=== PATIENT | male | born 1945 | race Caucasian/White ===

== ENCOUNTER 2021-07-15 18:00 | Outpatient (CLI) | payer MEDICARE, OTHER, SELFPAY ==
[2021-07-15] MEDS: 0.9% Saline Lock 10 ML Syringe IV (18:28)
[2021-07-15 18:30] VITALS: BP 155/56; PULSE 83; RESP 16; TEMP 38.4; O2SAT 96; BMI 37.3
[2021-07-15] MEDS: Acetaminophen 325 MG Tablet 650 MG PO (18:41)
[2021-07-15 21:07] VITALS: BP 138/65; PULSE 74; RESP 16; TEMP 38.1; O2SAT 96
== END 2021-07-15 20:05 | disposition home or self-care (01) ==
LOC: MS3OUT 18:06 → MS3 18:07
PROVIDERS: PCP Internal Medicine; Referring Provider Nurse Practitioner Adult Health; Visit Provider Nurse Practitioner Adult Health
DX: Z23 Encounter for immunization (principal); U07.1 COVID-19
CPT/HCPCS: J7050; M0243; A4216; Q0244

== ENCOUNTER 2021-07-15 21:37 | Inpatient (IN) | payer MEDICARE, OTHER, SELFPAY ==
[2021-07-15 21:38] VITALS: BP 175/59; PULSE 135; RESP 24; TEMP 37.3; O2SAT 97; BMI 38.4
[2021-07-15 22:12] VITALS: BP 155/58; PULSE 101; PULSE 97; RESP 20; RESP 27; TEMP 39; O2SAT 93
--- NOTE | 2021-07-15 22:25 | RAD_ITS ---
STUDY: X-RAY CHEST REASON FOR EXAM: Male, 75 years old. COVID-19, increased shortness of breath TECHNIQUE: Portable, upright, AP chest radiograph 06/30/2014 COMPARISON: None. FINDINGS: Right right mid and lower lung and left lower lung patchy opacities. There is no demonstrated pleural abnormality. Normal size heart. Normal mediastinum and yung. Normal visualized pulmonary arteries. Normal visualized aortic arch and descending thoracic aorta. There are diffuse degenerative changes of the visualized thoracic spine. There is degenerative osteoarthritis of the bilateral shoulders. There is no demonstrated abnormality of the visualized soft tissue structures of the upper abdomen. RAD/Chest 1 View (Portable) IMPRESSION: Multifocal pneumonia. Electronically Signed: Manoj Dick MD at 23:11 EDT Tel , Service support ,
--- NOTE | 2021-07-15 22:26 | EKG12_ITS ---
Test Reason : SOB Blood Pressure : / mmHG Vent. Rate : 098 BPM Atrial Rate : 098 BPM P-R Int : 156 ms QRS Dur : 084 ms QT Int : 350 ms P-R-T Axes : 031 019 025 degrees QTc Int : 446 ms Sinus rhythm with occasional Premature ventricular complexes and Premature atrial complexes Otherwise normal ECG Confirmed by RODERICK GROSS, JACKIE ([id number]), research editor ALFONZO BUCKNER ([id number]) on 07/19/2021 8:05:02 AM Referred By: HERI Confirmed By:JACKIE VAUGHN MD
--- NOTE | 2021-07-15 22:27 | ED.VIS.DYS ---
HPI History of Present Illness Chief Complaint: Shortness of Breath Informant: patient and family Narrative Narrative: 75-year-old male states that 1 week ago he developed symptoms of COVID-19. He did test positive and today received monoclonal antibody infusion at approximately 1800 hrs. He has had worsening shortness of breath during the day has been wheezing. He has no known lung conditions. After his infusion he was noticeably more short of breath. He does have a history of atrial fibrillation and is on Xarelto. He states he has not missed any doses of Xarelto. He notes continued high fevers but otherwise has not had too many symptoms of Covid. He does note a slight cough. [facility] Medical History A-fib History of renal cell carcinoma HLD (hyperlipidemia) Home Medications Valsartan [Diovan] 320 mg PO DAILY 06/30/14 [History Last Taken 06/30/14] cyanocobalamin (vitamin B-12) 1,000 mcg PO DAILY@0800 06/30/14 [History Last Taken 06/30/14] diltiazem HCl 360 mg PO DAILY 06/30/14 [History Last Taken 06/30/14] doxazosin 8 mg PO QHS 06/30/14 [History Last Taken 06/29/14 22:00] glimepiride 4 mg PO DAILY 06/30/14 [History Last Taken 06/30/14] metformin 500 mg PO BIDCM 06/30/14 [History Last Taken 06/30/14] simvastatin 20 mg PO QHS 06/30/14 [History Last Taken Unknown] vitamin E (dl, acetate) 400 units PO DAILY 06/30/14 [History Last Taken 06/30/14] chlorthalidone 25 mg PO DAILY 07/15/21 [History Last Taken Unknown] pioglitazone 15 mg PO DAILY 07/15/21 [History Last Taken Unknown] rivaroxaban [Xarelto] 15 mg PO DAILY 07/15/21 [History Last Taken Unknown] Allergy/AdvReac Type Severity Reaction Status Date / Time No Known Allergies Allergy Verified 07/15/21 21:41 Surgical History History of nephrectomy Social History (Updated 09/30/21 @ 22:[address] Saravanan Lucero, DO) Smoking Status: Former smoker substance use type: does not use ROS ROS ED Constitutional Constitutional ED: Reports chills and fever(s); Denies weight loss Eyes Eyes: Denies change in vision or diplopia ENT ENT ED: Denies ear pain, rhinorrhea or sore throat Cardiovascular Cardiovascular: Denies chest pain, orthopnea, palpitations or racing heartbeat Respiratory/Chest Respiratory/Chest: Reports cough, dyspnea and dyspnea on exertion; Denies orthopnea Gastrointestinal Gastrointestinal: Denies abdominal pain, diarrhea, nausea or vomiting Genitourinary Genitourinary ED: Denies dysuria, hematuria or urinary frequency Musculoskeletal Musculoskeletal: Denies arthralgias or myalgias Integumentary Denies abscess or rash Neurologic Neurologic: Denies headache(s) or weakness Psychiatric Psychiatric: Denies anxiety, depression, suicidal ideation or suicidal thoughts Endocrine Endocrinology: Denies polydipsia, polyphagia or polyuria Allergic/Immunologic Allergic/Immunologic ED: Denies mouth swelling, tongue swelling or urticaria EXAM Physical Exam Const Vital Signs: 07/15/21 21:38 07/15/21 22:12 07/15/21 22:28 Temperature 99.2 F H 102.2 F H Temperature Source Temporal Oral Pulse Rate 135 H 97 Respiratory Rate 24 H 20 H Respiratory Effort Short of Breath Respiratory Depth Shallow Respiratory Pattern Tachypnea Blood Pressure 175/59 H 155/58 H Blood Pressure Mean 97 90 Pulse Ox 97 93 Oxygen Delivery Method Room Air Room Air Room Air 07/15/21 23:30 Temperature 102.2 F H Temperature Source Oral Pulse Rate 95 Respiratory Rate 27 H Respiratory Effort Respiratory Depth Respiratory Pattern Blood Pressure 164/70 H Blood Pressure Mean 101 Pulse Ox 95 Oxygen Delivery Method Room Air Positive well nourished and well developed General Appearance ED: well developed HEENT Reports normocephalic, head/scalp atraumatic and moist mucous membranes Eyes PERRL and EOMs intact bilaterally Neck no lymphadenopathy, supple and no JVD Resp normal respiratory effort Auscultation: wheezes expiratory wheezes Cardio regular rate, regular rhythm and no murmurs GI normal to inspection, nondistended, normoactive bowel sounds and non-tender Palpation: soft Back/Spine no CVA tenderness and normal ROM Extremity normal to inspection General Extremety ED: Negative for edema General Extremity: Negative for edema Neuro oriented x3 and CN's II-XII intact bilaterally Sensorium / Orientation: alert Motor Exam: strength 5/5 throughout Psych mental status grossly normal Mood & Affect: Negative for depressed or tearful Skin no rashes or lesions noted and no wounds MDM MDM MDM Narrative Medical decision making narrative: Patient is intermittently in and out of A. fib with RVR. White count 8.0 with a hemoglobin of 10.5. BUN and creatinine are elevated off baseline with a BUN of 37 creatinine of 2.09. Troponin 24. My interpretation of the chest x-ray is multifocal areas of pneumonitis consistent with COVID-19 diagnosis. Patient received albuterol MDI Decadron and 500 cc of normal saline. He has been very compliant with his Xarelto I do not think we need to pursue a pulmonary embolism as he has not missed any doses. Patient ambulated at 87% on room air. Due to the possibility of myocardial irritability I placed him on a couple liters. Lab Data Attestation: I reviewed the patient's lab results. Labs: Laboratory Results - last 24 hr 07/15/21 07/15/21 22:19 22:19 WBC 8.0 RBC 3.62 L Hgb 10.5 L Hct 31.4 L MCV 86.7 MCH 29.0 MCHC 33.4 RDW Std Deviation 49.1 H RDW Coeff of Rodrigo 15.2 H Plt Count 196 MPV 10.9 Immature Gran % (Auto) 0.700 Neut % (Auto) 74.8 H Lymph % (Auto) 18.3 L Blaine % (Auto) 6.1 Eos % (Auto) 0.0 Baso % (Auto) 0.1 Absolute Neuts (auto) 6.0 Absolute Lymphs (auto) 1.47 Nucleated RBC % 0 Sodium 133 L Potassium 3.8 Chloride 99 Carbon Dioxide 27.0 Anion Gap 7 BUN 37 H Creatinine 2.09 H Estim Creat Clear Calc 30.07 Est GFR (MDRD) Af Amer 40 L Est GFR (MDRD) Non-Af 33 L BUN/Creatinine Ratio 17.7 Glucose 236 H Calcium 7.6 L Total Bilirubin 0.40 AST 26 ALT 21 Alkaline Phosphatase 53 Troponin I High Sens 24 Total Protein 7.0 Albumin 2.7 L Globulin 4.3 H Albumin/Globulin Ratio 0.6 L Radiography Diagnostic Testing: Radiology Impression Chest X-Ray 09/30/21 22:25 IMPRESSION: Multifocal pneumonia. Electronically Signed: Manoj Dick MD at 23:11 EDT Tel , Service support , EKG Initial EKG: Attestation: I personally reviewed and interpreted this EKG as follows: Comments: Sinus rhythm with a ventricular rate of 98 bpm. Noted PVCs and PACs Discharge Plan Dx/Rx/DC Orders Clinical Impression: COVID-19, Atrial fibrillation with RVR Disposition Disposition: Acute Care Hospital [facility]
[2021-07-15 22:28] VITALS: O2SAT 93
[2021-07-15 22:38] LABS: Absolute Lymphocyte Count 1.47 X10^3/uL (0.83-4.51); Basophil# 0.01 X10^3/uL; Basophil% 0.1 % (0-1); Hematocrit 31.4 % (40-54); Hemoglobin 10.5 g/dL (13.0-16.5); Lymphocyte # 1.47 X10^3/ul (0.83-4.51); Lymphocyte % 18.3 % (19-41); Mean Corp Hgb Conc 33.4 g/dL (32-36); Mean Corpuscular Volume 86.7 fL (80-94); Mean Platelet Vol. 10.9 fl (6.2-12.0); Monocyte# 0.49 X10^3/uL; Monocyte% 6.1 % (0-10); NRBC Flagged by Analyzer 0 % (0-5); Neutrophil # 5.99 X10^3/uL (2.7-7.7); Neutrophil % 74.8 % (47-70); Platelet Count 196 K/mm3 (150-450); RBC Distribution Width CV 15.2 % (11.6-14.6); RBC Distribution Width SD 49.1 fl (35.1-43.9); Red Blood Count 3.62 M/mm3 (4.6-6.2)
[2021-07-15 22:57] LABS: ALB/GLOB Ratio 0.6 RATIO (0.9-2.4); AST(SGOT) 26 U/L (15-37); Alanine Aminotransfer ALT/SGPT 21 U/L (16-61); Albumin, Serum 2.7 g/dL (3.2-5.0); Alkaline Phosphatase 53 U/L (45-117); Anion Gap 7 (5-15); BUN 37 mg/dL (7-18); BUN/Creat Ratio 17.7 RATIO (10-20); Calcium,Total 7.6 mg/dL (8.5-10.1); Chloride 99 mmol/L (98-107); Creatinine, Serum 2.09 mg/dL (0.70-1.30); EST Glomerular Filtration Rate 33 mL/min (>60); Est Glom Filt Rate - Afr Amer 40 mL/min (>60); Estimated Creatinine Clearance 30.07 ml/min; Globulin 4.3 g/dL (2.2-4.2); Glucose 236 mg/dL (74-106); Potassium 3.8 mmol/L (3.5-5.1); Sodium Level 133 mmol/L (136-145); Troponin-I HS 24 pg/mL (3.0-78.0)
[2021-07-15] MEDS: INHALER, ASSIST DEVICES 1 EACH SPACER INHALATION (23:12)
[2021-07-15] MEDS: dexAMETHasone 4 MG Tablet 6 MG PO (23:12)
[2021-07-15] MEDS: Albuterol Sulfate 8 gm Inhaler (60 puffs) 4 PUFF INHALATION (23:12)
[2021-07-15 23:30] VITALS: BP 164/70; PULSE 95; RESP 27; TEMP 39; O2SAT 95
[2021-07-15 23:35] VITALS: O2SAT 93
[2021-07-15 23:40] LABS: Lactic Acid 1.1 mmol/L (0.4-1.9)
[2021-07-16] VITALS (14 sets, daily range): BP systolic 113–180; BP diastolic 41–73; PULSE 60–111; RESP 16–24; TEMP 36.1–38.9; O2SAT 92–97; BMI 39.4
[2021-07-16] MEDS: Ibuprofen 600 MG Tablet PO (00:15)
[2021-07-16] MEDS: dilTIAZem 25 MG/5 ML Vial 10 MG IV BOLUS (01:43)
--- NOTE | 2021-07-16 01:47 | HP.PCM_ITS ---
Documented by User: JESUS ALBERTO Garrett 07/16/21 02:05 HPI - General General Date of Admission: 07/16/21 Date of Service: 07/16/21 Chief Complaint: Shortness of breath HPI Narrative MAKAYLA RODRIGUEZ, is a 75 M who presents with complaints of increased shortness of breath. Patient states that he became symptomatic approximately 8 days ago and tested positive for COVID-19 at that time. Patient received monoclonal antibodies as an outpatient earlier today. Patient states that he has had worsening shortness of breath starting this morning that has progressively worsened and had some associated wheezing. Patient states that he does have a history of atrial fibrillation and takes Xarelto. Patient states he also has had fevers up to 103. [facility] Medical History (Updated 07/16/21 @ 02:29 by Kiara Brunson) A-fib Diabetes Former smoker History of renal cell carcinoma HLD (hyperlipidemia) Kidney disease Sleep apnea Home Medications Valsartan [Diovan] 320 mg PO DAILY 06/30/14 [History Last Taken 06/30/14] cyanocobalamin (vitamin B-12) 1,000 mcg PO DAILY@0800 06/30/14 [History Last Taken 06/30/14] diltiazem HCl 360 mg PO DAILY 06/30/14 [History Last Taken 06/30/14] doxazosin 8 mg PO QHS 06/30/14 [History Last Taken 06/29/14 22:00] glimepiride 4 mg PO DAILY 06/30/14 [History Last Taken 06/30/14] metformin 500 mg PO BIDCM 06/30/14 [History Last Taken 06/30/14] simvastatin 20 mg PO QHS 06/30/14 [History Last Taken Unknown] vitamin E (dl, acetate) 400 units PO DAILY 06/30/14 [History Last Taken 06/30/14] chlorthalidone 25 mg PO DAILY 07/15/21 [History Last Taken Unknown] pioglitazone 15 mg PO DAILY 07/15/21 [History Last Taken Unknown] rivaroxaban [Xarelto] 15 mg PO DAILY 07/15/21 [History Last Taken Unknown] Allergy/AdvReac Type Severity Reaction Status Date / Time No Known Allergies Allergy Verified 07/15/21 21:41 Surgical History History of nephrectomy Social History Smoking Status: Former smoker substance use type: does not use ROS Constitutional Constitutional: Reports chills, fever(s) and malaise; Denies anorexia, fatigue or weakness Cardiovascular Cardiovascular: Denies chest pain, edema or palpitations Respiratory/Chest Respiratory/Chest: Reports cough, shortness of breath at rest, shortness of breath with exertion and wheezing Gastrointestinal Gastrointestinal: Denies abdominal pain, constipation, diarrhea, nausea or vomiting Genitourinary Genitourinary: Denies dysuria Musculoskeletal Musculoskeletal: Denies back pain, extremity pain, joint pain or joint stiffness Integumentary Integumentary: Denies dry skin Neurologic Neurologic: Denies abnormal gait, abnormal speech, confusion or dizziness Psychiatric Psychiatric: Denies anxiety or depression Endocrine Endocrinology: Denies change in body appearance Hematologic/Lymphatic Hematologic/Lymphatic: Denies anemia, easy bleeding or easy bruising Vital Signs Vital Signs Vital Signs: 07/15/21 21:38 07/15/21 22:12 07/15/21 22:28 Temperature 99.2 F H 102.2 F H Temperature Source Temporal Oral Pulse Rate 135 H 97 Respiratory Rate 24 H 20 H Respiratory Effort Short of Breath Respiratory Depth Shallow Respiratory Pattern Tachypnea Blood Pressure 175/59 H 155/58 H Blood Pressure Mean 97 90 Pulse Ox 97 93 Oxygen Delivery Method Room Air Room Air Room Air Oxygen Flow Rate (L/min) 07/15/21 23:30 07/16/21 00:15 07/16/21 00:16 Temperature 102.2 F H 102.1 F H 102.1 F H Temperature Source Oral Oral Oral Pulse Rate 95 95 95 Respiratory Rate 27 H 24 H 24 H Respiratory Effort Respiratory Depth Respiratory Pattern Blood Pressure 164/70 H 180/72 H 180/72 H Blood Pressure Mean 101 108 108 Pulse Ox 95 97 97 Oxygen Delivery Method Room Air Nasal Cannula Nasal Cannula Oxygen Flow Rate (L/min) 2 2 07/16/21 00:22 07/16/21 01:43 Temperature 99.9 F H Temperature Source Oral Pulse Rate 111 H Respiratory Rate 18 Respiratory Effort Respiratory Depth Respiratory Pattern Blood Pressure 135/41 H 126/62 H Blood Pressure Mean 72 83 Pulse Ox 95 Oxygen Delivery Method Nasal Cannula Oxygen Flow Rate (L/min) 2 Weight Weight: 260 lb Body Mass Index (BMI) 38.4 Physical Exam Const alert, oriented x3 and no apparent distress General Appearance: cooperative HEENT normocephalic and head/scalp atraumatic Eyes conjunctivae normal and no scleral icterus Resp normal respiratory effort and normal air movement Effort and Inspection: tachypneic Auscultation: wheezes expiratory wheezes, anterior, posterior and throughout Cardio regular rhythm, S1 normal heart sound, S2 normal heart sound and peripheral puls es 2+ throughout Rate: tachycardic GI normal to inspection, nondistended, normoactive bowel sounds, soft to palpation and non-tender Extremity normal capillary refill and no clubbing, cyanosis or edema General Extremity: no tenderness to palpation of joints or extremities Skin General Skin Exam: no breakdown and turgor normal Lesions: no lesions Rashes: no rashes Neuro no focal motor deficits and no sensory deficits noted Speech: speech normal Motor Exam: Negative for general weakness Psych thought process normal, cooperative and affect normal Appearance: appropriate Results Lab / Micro Data Result Diagrams: 07/15/21 22:19 07/15/21 22:19 Labs: Laboratory Results - last 24 hr 07/15/21 22:19: WBC 8.0, RBC 3.62 L, Hgb 10.5 L, Hct 31.4 L, MCV 86.7, MCH 29.0, MCHC 33.4, RDW Std Deviation 49.1 H, RDW Coeff of Rodrigo 15.2 H, Plt Count 196, MPV 10.9, Immature Gran % (Auto) 0.700, Neut % (Auto) 74.8 H, Lymph % (Auto) 18.3 L, [place]wsley % (Auto) 6.1, Eos % (Auto) 0.0, Baso % (Auto) 0.1, Absolute Neuts (auto) 6.0, Absolute Lymphs (auto) 1.47, Nucleated RBC % 0 07/15/21 22:19: Sodium 133 L, Potassium 3.8, Chloride 99, Carbon Dioxide 27.0, Anion Gap 7, BUN 37 H, Creatinine 2.09 H, Estim Creat Clear Calc 30.07, Est GFR (MDRD) Af Amer 40 L, Est GFR (MDRD) Non-Af 33 L, BUN/Creatinine Ratio 17.7, Glucose 236 H, Calcium 7.6 L, Total Bilirubin 0.40, AST 26, ALT 21, Alkaline Phosphatase 53, Troponin I High Sens 24, Total Protein 7.0, Albumin 2.7 L, Globulin 4.3 H, Albumin/Globulin Ratio 0.6 L 07/15/21 23:10: Lactic Acid 1.1 Radiology Impression Chest X-Ray 07/15/21 22:25 IMPRESSION: Multifocal pneumonia. Electronically Signed: Manoj Dick MD at 23:11 EDT Tel , Service support , Assessment & Plan Assessment/Plan (1) COVID-19: (2) MYAH (acute kidney injury): PLAN: 1. COVID-19 pneumonia -Admit to PCU for cardiac monitoring -Consult pulmonary medicine -consult infectious disease -Decadron received in ER, will continue -Initiate patient on remdesivir -Daily weights -CRP, procalcitonin, D-dimer ordered -Vital signs per protocol -CBC, BMP, liver profile, mag, Phos ordered daily -PT and OT to eval and treat 2. 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 Atrial fibrillation -Chronic for patient however patient noted to be flipping back and forth between atrial fibrillation and sinus tach. -Cardiac monitoring ordered -If patient were to remain in atrial fibrillation with RVR would recommend initiating IV Cardizem -Continue Cardizem and Xarelto p.o. 4. Diabetes Mellitus Type II -Continue glimeperide and pioglitazone -Hold Metformin -ACHS BS with sliding scale insulin ordered 5. Hypertension -Due to MYAH hold chlorthalidone and valsartan -As needed labetalol ordered DVT prophylaxis-SCDs, no pharmacological prophylaxis indicated This patient was seen by Jessica Gibbs NP-C under the supervision of Dr. Randle. Documented by User: Dr. Mitchell Randle MD 07/16/21 03:23 HPI - General General Date of Admission: 07/16/21 [facility] Medical History (Updated 07/16/21 @ 02:29 by Kiara Brunson) A-fib Diabetes Former smoker History of renal cell carcinoma HLD (hyperlipidemia) Kidney disease Sleep apnea Home Medications Valsartan [Diovan] 320 mg PO DAILY 06/30/14 [History Last Taken 06/30/14] cyanocobalamin (vitamin B-12) 1,000 mcg PO DAILY@0800 06/30/14 [History Last Taken 06/30/14] diltiazem HCl 360 mg PO DAILY 06/30/14 [History Last Taken 06/30/14] doxazosin 8 mg PO QHS 06/30/14 [History Last Taken 06/29/14 22:00] glimepiride 4 mg PO DAILY 06/30/14 [History Last Taken 06/30/14] metformin 500 mg PO BIDCM 06/30/14 [History Last Taken 06/30/14] simvastatin 20 mg PO QHS 06/30/14 [History Last Taken Unknown] vitamin E (dl, acetate) 400 units PO DAILY 06/30/14 [History Last Taken 06/30/14] chlorthalidone 25 mg PO DAILY 07/15/21 [History Last Taken Unknown] pioglitazone 15 mg PO DAILY 07/15/21 [History Last Taken Unknown] rivaroxaban [Xarelto] 15 mg PO DAILY 07/15/21 [History Last Taken Unknown] Allergy/AdvReac Type Severity Reaction Status Date / Time No Known Allergies Allergy Verified 07/15/21 21:41 Surgical History History of nephrectomy Social History Smoking Status: Former smoker substance use type: does not use Results Lab / Micro Data Result Diagrams: 07/15/21 22:19 07/15/21 22:19 Charges/Coding Addendum Addendum: Patient was seen and examined independently. I agree with assessment and plan by JESUS ALBERTO Garrett In summary, patient is a 75-year-old male with a significant history of hypertension; renal cell carcinoma status post nephrectomy; hyperlipidemia; diabetes mellitus and paroxysmal A. fib who presents emergency department with an eight day history of progressively worsening Covid-like symptoms. Patient has a fever with highest temperature of 102 Fahrenheit; chills; anorexia; bloated belly; fatigue; and weakness. He had body aches that has improved. He denies anosmia and dysgeusia. He tested positive for COVID-19 virus on 07/12/2021. On the day of presentation patient received monoclonal antibodies. At emergency department he was intermittently found to be in A. fib with RVR. Physical exam: General: Well-nourished, well-developed. Head: Normocephalic, atraumatic, no tenderness Eyes: PERRLA, EOMI ENT, no trauma, moist mucous membranes, no rhinorrhea Neck: Nontender, full range of motion, no spinal tenderness, deformities, step- off CVS: Tachycardia irregularly irregular rate and rhythm. Respiratory : Tachypnea. Rhonchi at right base. Abdomen: Soft, nontender, nondistended, normal bowel sounds, no masses : Deferred Back: Nontender, no CVA tenderness, no midline spinal tenderness, deformities, step-offs Extremities: Nontender full range of motion, no trauma Skin: Normal color, no trauma, abrasions Neuro: Alert, oriented, cranial nerves II through XII grossly intact. Psychiatry: Normal mood. Normal affect. Not depressed. Not anxious. Acute hypoxemic respiratory failure secondary to SARS- COV 2 ED doc reported an oxygen saturation of 91-93 percent on room air. And oxygen saturation of 87% with ambulation. Patient required 2L of nasal cannula oxygen. Oxygen supplementation continued. Reportedly had a positive COVID-19 test outpatient on 07/12/2021. Impression of chest x-ray by radiologist: Multifocal pneumonia. Actual chest x- ray image was independently interpreted. I agree with radiologist interpretat ion. On Xarelto that he takes religiously. Low risk of PE while on Xarelto. Received Decadron at the emergency department and will continue. Estimated creatinine clearance is 30.07 borderline for remdesivir. Liver enzymes are normal. Start remdesivir. Trend CMP. Tylenol for fever MYAH On presentation his creatinine was 2.09. Last creatinine on hospital system was in 2013. Review of community records shows that on 05/05/2021 his creatinine was 1.71 and on 04/12/2021 his creatinine was 1.70. High risk of decompensation with large volume of fluids. Received normal saline bolus 500 mL in the emergency department. Gentle IV hydration ordered. Avoid nephrotoxins. Hold home chlorthalidone and Diovan. Trend CMP. Acute hypocalcemia Calcium 7.6. Albumin of 2.7. Corrected calcium is 8.6. Trend CMP. Hyponatremia Mild. Sodium of 133. 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 Normal saline as above. Trend CMP. Atrial fibrillation Admit to PCU on telemetry. Home Cardizem continued. Home Xarelto continued. IV bolus Cardizem given at the emergency department. Hypertension Blood pressure is not within goal Labetalol as needed ordered. Cardizem continued. Hold Diovan and chlorthalidone because of MYAH. Trend blood pressure and adjust blood pressure medications. DVT prophylaxis Xarelto continued. Visit Charges Inpatient E&M: 05382 Init Hosp L3
[2021-07-16] MEDS: 0.9% Normal Saline 1,000 ML 60 ML IV ×2 (02:23→16:04)
--- NOTE | 2021-07-16 02:26 | PCS.PANDOC ---
PANDEMIC DOCUMENTATION INITIATED: Date: 07/16/2021 Time: 6692
[2021-07-16] MEDS: Acetaminophen 325 MG Tablet 650 MG PO (02:36)
[2021-07-16 02:54] LABS: D-Dimer Quantitative (DVT/PE) 0.44 FEU/ug/m (0.27-0.49)
[2021-07-16 02:56] LABS: LDH 180 U/L (87-241)
[2021-07-16 03:15] LABS: Procalcitonin 0.29 ng/mL (0.00-0.09)
--- NOTE | 2021-07-16 07:02 | NURSING ---
spoke with daughter gena, gave brief update. Thankful for care
[2021-07-16 07:35] LABS: Absolute Lymphocyte Count 0.81 X10^3/uL (0.83-4.51); Absolute Neutrophil Count 7.8 X10^3/uL (2.0-7.7); Basophil# 0.01 X10^3/uL; Basophil% 0.1 % (0-1); Hematocrit 28.4 % (40-54); Hemoglobin 9.4 g/dL (13.0-16.5); Lymphocyte # 0.81 X10^3/ul (0.83-4.51); Mean Corp Hgb Conc 33.1 g/dL (32-36); Mean Corpuscular Hgb 28.7 pg (27.0-32.0); Mean Corpuscular Volume 86.9 fL (80-94); Mean Platelet Vol. 10.3 fl (6.2-12.0); Monocyte# 0.36 X10^3/uL; NRBC Flagged by Analyzer 0 % (0-5); Neutrophil # 7.78 X10^3/uL (2.7-7.7); Neutrophil % 85.9 % (47-70); Platelet Count 180 K/mm3 (150-450); RBC Distribution Width CV 15.3 % (11.6-14.6); RBC Distribution Width SD 48.7 fl (35.1-43.9); Red Blood Count 3.27 M/mm3 (4.6-6.2); White Blood Count 9.1 K/mm3 (4.4-11.0)
[2021-07-16 08:00] LABS: AST(SGOT) 23 U/L (15-37); Alanine Aminotransfer ALT/SGPT 20 U/L (16-61); Albumin, Serum 2.2 g/dL (3.2-5.0); Alkaline Phosphatase 46 U/L (45-117); Anion Gap 10 (5-15); BUN 42 mg/dL (7-18); BUN/Creat Ratio 19.2 RATIO (10-20); Bilirubin, Direct 0.07 mg/dL (0.00-0.30); Calcium,Total 7.1 mg/dL (8.5-10.1); Chloride 100 mmol/L (98-107); Creatinine, Serum 2.19 mg/dL (0.70-1.30); EST Glomerular Filtration Rate 31 mL/min (>60); Est Glom Filt Rate - Afr Amer 38 mL/min (>60); Globulin 4.1 g/dL (2.2-4.2); Glucose 294 mg/dL (74-106); Phosphorus 3.6 mg/dL (2.5-4.9); Potassium 4.1 mmol/L (3.5-5.1); Protein, Total 6.3 g/dL (6.4-8.2); Sodium Level 132 mmol/L (136-145)
[2021-07-16] MEDS: Insulin Lispro 100 UNIT/ML INSULN.PEN SC ×4 (09:33→21:00)
[2021-07-16] MEDS: Losartan Potassium 100 MG Tablet PO (09:35)
[2021-07-16] MEDS: Cyanocobalamin 500 MCG Tablet 1000 MCG PO (09:35)
[2021-07-16] MEDS: Glimepiride 4 MG Tablet PO (09:35)
[2021-07-16] MEDS: Pioglitazone Hydrochloride 15 MG Tablet PO (09:35)
[2021-07-16] MEDS: Chlorthalidone 50 MG Tablet 25 MG PO (09:36)
[2021-07-16] MEDS: dexAMETHasone 10 MG/ML Vial 6 MG IV (09:39)
[2021-07-16 09:56] LABS: Bedside Glucose 322 mg/dL (70-110)
[2021-07-16 11:30] LABS: Bedside Glucose 433 mg/dL (70-110)
--- NOTE | 2021-07-16 11:41 | CASEMGMT ---
TERESA SHERIDAN assessment: Initial transition planning/care coordination assessment. RN ARVIN introduced self and role at [facility], pt voices understanding and consents to assessment. Pt is on 2L nc and speaks in full sentences with no distress. Pt is A/Ox4 and answers all questions appropriately. Pt states is not symptomatic and states no concerns getting resources once home. Care providers, pharmacy, and demographics verified. Presentation: Wheezy, SOB worse after monoclonal infusion this evening Admitting dx: COVID PCP: Simon Specialists: anna Luna Preferred Pharmacy: [facility] Insurance: [facility] A/B, AARP Prescription Benefit: Yes Living Will/HPOA: Pt states has LW/HPOA and is aware that they are not on file at [facility]. Pt states his , Alejandra Suárez, is HPOA. LNOK: Alejandra Suárez, ; Armin Suárez, son Living Arrangements: Pt states lives with in 1.5 story home and states no concerns at home. Pt states is independent with ADL's. Transportation: Pt states drives self and states no transportation concerns. DME/HHC: Pt states no current DME or need for any further DME. Pt states no preference for DME company, if pt qualifies for home oxygen at discharge. Green sheet left on chart, if pt qualifies. Pt states no hx of HHC or SNF. Pt states no concerns with going home at time of discharge. Pt is retired. Pt states does not smoke cigarettes or drink ETOH. Pt states no further concerns/needs. CM to follow for home oxygen need and any further discharge planning/needs. Advised pt to ask for CM if any further questions/concerns/needs arise, voices understanding. Pt Goal: Home Plan: Home, pending home oxygen testing. [place] TERESA SHERIDAN
--- NOTE | 2021-07-16 13:00 | CON.PCM.CC_ITS ---
Assessment & Plan Assessment/Plan (1) COVID-19: (2) DM2 (diabetes mellitus, type 2): (3) HTN (hypertension): PLAN: RECOMMENDATIONS: 1. Agree with Decadron and Remdesivir 2. No antibiotics at this time 3. Continue cardiac monitoring 4. Gentle rehydration by mouth if possible 5. Agree with holding ARB IMPRESSIONS: 1. Acute hypoxic respiratory insufficiency secondary to COVID-19 Patient with minimal oxygen requirements. Clinical suspicion for decompensation overnight secondary to high fevers. Cannot exclude underlying lung disease as patient is a former smoker and there is high clinical suspicion for obstructive sleep apnea. Patient is requiring supplemental oxygen, so Remdesivir would be indicated. Patient to be evaluated by infectious disease later today. Outpatient complete PFT and sleep study would be a consideration. As needed albuterol is likely sufficient as scheduled aerosols may complicate patient's A. fib. We will have to watch liver function closely given patient's renal insufficiency in the setting of Remdesivir. 2. Morbid obesity/hypertension/diabetes mellitus type 2/advanced age/history of nephrectomy Complicates care, management, recovery and prognosis. We will have to watch blood sugars closely given Decadron therapy. Would transition to insulin alone while hospitalized to limit complications HPI Consult Data Date of Consult: 07/16/21 HPI Narrative HPI Narrative: MAKAYLA RODRIGUEZ is a 75 M, with past medical history listed below, who presents to [facility] on 07/15/2021 following 1 week of URI type symptoms. Patient reportedly developed severe sore throat and headache initially and then progressed to shortness of breath. Patient had tested positive for COVID-19 and received monoclonal antibody infusion on the day of presentation. Patient had gone home and had worsening shortness of breath and wheezing. Patient is on Xarelto at baseline secondary to a history of atrial fibrillation and denies missing any doses. Patient did have a high fever, but otherwise felt that he was improving. Patient states he was immunized with [employer] in the past. In the ER, patient was febrile to 102.2 ?F. Patient was also hypertensive at 175/59. Patient initially was doing well on room air. Laboratory work-up showed an anemia of 10.5, but white blood cell count was only 8. Renal function was decreased with a creatinine of 2 with BUN of 37 and a glucose of 236. Chest x-ray showed bilateral patchy infiltrates and an EKG showed sinus rhythm with PVCs and PACs. Patient was given albuterol, Decadron and 500 cc of normal saline. On ambulation, patient desaturated to 87% and was admitted to the hospital for further evaluation. Patient reports that he feels subjectively much improved today compared to yesterday/overnight. Patient states that he is not having any pleuritic chest pain, nausea, vomiting or diarrhea. Patient denies any history of obstructive sleep apnea, but does admit that he has gained significant amount of weight since his last sleep study. Patient does have a significant cardiac history, but denies any pulmonary history. Patient does have a history of remote smoking but denies any occupational exposures. No trauma has been reported. Review of systems otherwise negative from a constitutional, HEENT, respiratory, cardiovascular, GI, genitourinary, musculoskeletal, skin, neurologic, psychiatric and hematologic system unless stated above. [facility] Medical History A-fib Diabetes Former smoker History of renal cell carcinoma HLD (hyperlipidemia) Kidney disease Sleep apnea Home Medications Valsartan [Diovan] 320 mg PO DAILY 06/30/14 [History Last Taken 06/30/14] cyanocobalamin (vitamin B-12) 1,000 mcg PO DAILY@0800 06/30/14 [History Last Taken 06/30/14] diltiazem HCl 360 mg PO DAILY 06/30/14 [History Last Taken 06/30/14] doxazosin 8 mg PO QHS 06/30/14 [History Last Taken 06/29/14 22:00] glimepiride 4 mg PO DAILY 06/30/14 [History Last Taken 06/30/14] metformin 500 mg PO BIDCM 06/30/14 [History Last Taken 06/30/14] simvastatin 20 mg PO QHS 06/30/14 [History Last Taken Unknown] vitamin E (dl, acetate) 400 units PO DAILY 06/30/14 [History Last Taken 06/30/14] chlorthalidone 25 mg PO DAILY 07/15/21 [History Last Taken Unknown] pioglitazone 15 mg PO DAILY 07/15/21 [History Last Taken Unknown] rivaroxaban [Xarelto] 15 mg PO DAILY 07/15/21 [History Last Taken Unknown] Allergy/AdvReac Type Severity Reaction Status Date / Time No Known Allergies Allergy Verified 07/15/21 21:41 Surgical History History of nephrectomy Social History Smoking Status: Former smoker substance use type: does not use ROS ROS Narrative See HPI Physical Exam Const alert, oriented x3 and no apparent distress General Appearance: cooperative HEENT normocephalic and head/scalp atraumatic Eyes conjunctivae normal and no scleral icterus Chest inspection of chest normal Chest: symmetrical chest wall rise; Negative for crepitus Resp normal respiratory effort Auscultation: diminished lung sounds; Negative for rales, rhonchi or wheezes Cardio regular rate, regular rhythm, S1 normal heart sound, S2 normal heart sound and peripheral pulses 2+ throughout GI normal to inspection, nondistended, normoactive bowel sounds, soft to palpation and non-tender Extremity normal capillary refill General Extremity: edema bilateral lower extremity Details: mild and no tenderness to palpation of joints or extremities Skin General Skin Exam: no breakdown and turgor normal Lesions: no lesions Rashes: no rashes Neuro no focal motor deficits and no sensory deficits noted Speech: speech normal Motor Exam: Negative for general weakness Psych thought process normal, cooperative and affect normal Appearance: appropriate Lab / Micro Data Result Diagrams: 07/16/21 07:10 07/16/21 07:10 Labs: Laboratory Results - last 24 hr 07/15/21 22:19: WBC 8.0, RBC 3.62 L, Hgb 10.5 L, Hct 31.4 L, MCV 86.7, MCH 29.0, MCHC 33.4, RDW Std Deviation 49.1 H, RDW Coeff of Rodrigo 15.2 H, Plt Count 196, MPV 10.9, Immature Gran % (Auto) 0.700, Neut % (Auto) 74.8 H, Lymph % (Auto) 18.3 L, [place] % (Auto) 6.1, Eos % (Auto) 0.0, Baso % (Auto) 0.1, Absolute Neuts (auto) 6.0, Absolute Lymphs (auto) 1.47, Nucleated RBC % 0 07/15/21 22:19: Sodium 133 L, Potassium 3.8, Chloride 99, Carbon Dioxide 27.0, Anion Gap 7, BUN 37 H, Creatinine 2.09 H, Estim Creat Clear Calc 30.07, Est GFR (MDRD) Af Amer 40 L, Est GFR (MDRD) Non-Af 33 L, BUN/Creatinine Ratio 17.7, G lucose 236 H, Calcium 7.6 L, Total Bilirubin 0.40, AST 26, ALT 21, Alkaline Phosphatase 53, Troponin I High Sens 24, Total Protein 7.0, Albumin 2.7 L, Globulin 4.3 H, Albumin/Globulin Ratio 0.6 L 07/15/21 23:10: Lactic Acid 1.1 07/16/21 02:30: D-Dimer Quant (PE/DVT) 0.44 07/16/21 02:30: Lactate Dehydrogenase 180, C-React Prot Ext Range 149.00 H 07/16/21 02:30: Procalcitonin 0.29 H 07/16/21 07:10: WBC 9.1, RBC 3.27 L, Hgb 9.4 L, Hct 28.4 L, MCV 86.9, MCH 28.7, MCHC 33.1, RDW Std Deviation 48.7 H, RDW Coeff of Rodrigo 15.3 H, Plt Count 180, MPV 10.3, Immature Gran % (Auto) 1.000 H, Neut % (Auto) 85.9 H, Lymph % (Auto) 9.0 L , [place] % (Auto) 4.0, Eos % (Auto) 0.0, Baso % (Auto) 0.1, Absolute Neuts (auto) 7.8 H, Absolute Lymphs (auto) 0.81 L, Nucleated RBC % 0 07/16/21 07:10: Sodium 132 L, Potassium 4.1, Chloride 100, Carbon Dioxide 22.0, Anion Gap 10, BUN 42 H, Creatinine 2.19 H, Estim Creat Clear Calc 28.70, Est GFR (MDRD) Af Amer 38 L, Est GFR (MDRD) Non-Af 31 L, BUN/Creatinine Ratio 19.2, Glucose 294 H, Calcium 7.1 L, Phosphorus 3.6, Magnesium 2.0, Total Bilirubin 0.30, Direct Bilirubin 0.07, AST 23, ALT 20, Alkaline Phosphatase 46, Total Protein 6.3 L, Albumin 2.2 L, Globulin 4.1 07/16/21 09:23: POC Glucose 322 H 07/16/21 11:23: POC Glucose 433 H Micro: Microbiology 07/16/21 10:23 Urine, Clean Catch Legionella Antigen - Final 07/16/21 10:23 Urine, Clean Catch Streptococcus pneumoniae Antigen (M - Final Radiology Impression Chest X-Ray 07/15/21 22:25 IMPRESSION: Multifocal pneumonia. Electronically Signed: Manoj Dick MD at 23:11 EDT Tel , Service support ,
[2021-07-16 16:15] LABS: Bedside Glucose 295 mg/dL (70-110)
[2021-07-16] MEDS: Rivaroxaban 15 MG Tablet PO (20:58)
[2021-07-16] MEDS: Doxazosin 4 MG Tablet 8 MG PO (20:58)
[2021-07-16] MEDS: Atorvastatin Calcium 10 MG Tablet PO (20:59)
[2021-07-16] MEDS: dilTIAZem CD 180 MG Capsule 360 MG PO (20:59)
[2021-07-16 21:16] LABS: Bedside Glucose 330 mg/dL (70-110)
[2021-07-17] VITALS (10 sets, daily range): BP systolic 101–140; BP diastolic 47–60; PULSE 53–68; RESP 12–18; TEMP 36.2–36.8; O2SAT 90–96
[2021-07-17] MEDS: Chlorthalidone 50 MG Tablet 25 MG PO (08:30)
[2021-07-17] MEDS: dexAMETHasone 10 MG/ML Vial 6 MG IV (08:30)
[2021-07-17] MEDS: Cyanocobalamin 500 MCG Tablet 1000 MCG PO (08:31)
[2021-07-17] MEDS: Glimepiride 4 MG Tablet PO (08:31)
[2021-07-17] MEDS: Pioglitazone Hydrochloride 15 MG Tablet PO (08:31)
[2021-07-17] MEDS: Losartan Potassium 100 MG Tablet PO (08:31)
[2021-07-17] MEDS: Insulin Lispro 100 UNIT/ML INSULN.PEN SC ×4 (08:32→20:52)
[2021-07-17 09:01] LABS: Bedside Glucose 258 mg/dL (70-110)
[2021-07-17] MEDS: 0.9% Normal Saline 1,000 ML 60 ML IV (11:40)
[2021-07-17 11:55] LABS: Bedside Glucose 344 mg/dL (70-110)
--- NOTE | 2021-07-17 15:16 | PCM.PN.HOSP ---
Subjective Subjective Doing well, feels better than when he came in. Not currently requiring any oxygen Objective Data Objective Data Vital Signs: Vital Signs Temp Pulse Resp BP Pulse Ox 97.1 F L 59 L 18 134/55 H 90 07/17/21 08:36 07/17/21 10:59 07/17/21 08:36 07/17/21 08:36 07/17/21 08:41 Oxygen Flow Rate (L/min) 2 Oxygen Delivery Method Room Air Weight: 265 lb 14.04 oz Body Mass Index (BMI) 39.4 Intake & Output: Intake and Output for Last 24 Hours 07/16/21 07/17/21 07/18/21 03:59 03:59 03:59 Intake Total 560 / 560 2043 / 3 938 / 938 Balance 560 / 560 3 / 2042 938 / 938 Lab / Micro Data Result Diagrams: 07/16/21 07:10 07/16/21 07:10 Labs: Laboratory Results - last 24 hr 07/16/21 16:02: POC Glucose 295 H 07/16/21 20:57: POC Glucose 330 H 07/17/21 08:29: POC Glucose 258 H 07/17/21 11:44: POC Glucose 344 H Micro: Microbiology 07/16/21 10:23 Urine, Clean Catch Legionella Antigen - Final 07/16/21 10:23 Urine, Clean Catch Streptococcus pneumoniae Antigen (M - Final Physical Exam Const alert, oriented x3 and no apparent distress General Appearance: cooperative HEENT normocephalic and moist oral mucous membranes Eyes PERRL, EOMs intact bilaterally and conjunctivae normal Neck supple and no JVD Resp normal respiratory effort, no retractions, no use of accessory muscles and clear to auscultation bilaterally Auscultation: Negative for crackles, rales, rhonchi or wheezes Cardio regular rate, regular rhythm, S1 normal heart sound, S2 normal heart sound and no murmurs GI soft to palpation, non-tender and non-distended; Negative for hepatosplenomegaly Extremity no clubbing, cyanosis or edema Skin no rashes or lesions noted Neuro no focal motor deficits and no sensory deficits noted Psych affect normal Appearance: appropriate Assessment & Plan Assessment/Plan (1) COVID-19: (2) MYAH (acute kidney injury): PLAN: 1. COVID-19 pneumonia/MYAH -Continue with Decadron, will discontinue remdesivir secondary to kidney disease -D-dimer was normal -Currently not requiring any oxygen -Unsure if this is MYAH his last kidney function was from 2013 on admission his creatinine was 2.09 today to 2.19 will monitor -If it remains stable tomorrow can consider discharge if he remains off of oxygen 2. A. fib/HTN no change -Continue with anticoagulation and rate control medication -Continue with simvastatin -Hold chlorthalidone valsartan 3. DM2 -Continuing with his glipizide and pioglitazone, hold Metformin -We will place Lantus as well as sliding scale DVT: SCDs Charges/Coding Visit Charges Inpatient E&M: 32633 Subs Hosp L2
[2021-07-17 16:31] LABS: Bedside Glucose 403 mg/dL (70-110)
[2021-07-17] MEDS: Atorvastatin Calcium 10 MG Tablet PO (20:54)
[2021-07-17] MEDS: Doxazosin 4 MG Tablet 8 MG PO (20:54)
[2021-07-17] MEDS: Rivaroxaban 15 MG Tablet PO (20:54)
[2021-07-17 21:11] LABS: Bedside Glucose 310 mg/dL (70-110)
[2021-07-18] VITALS (9 sets, daily range): BP systolic 107–146; BP diastolic 50–80; PULSE 56–88; RESP 18; TEMP 35.9–36.6; O2SAT 93–96
[2021-07-18] MEDS: 0.9% Normal Saline 1,000 ML 60 ML IV (03:40)
[2021-07-18 06:02] LABS: Absolute Lymphocyte Count 1.34 X10^3/uL (0.83-4.51); Absolute Neutrophil Count 8.1 X10^3/uL (2.0-7.7); Basophil# 0.01 X10^3/uL; Basophil% 0.1 % (0-1); Hematocrit 27.2 % (40-54); Hemoglobin 9.2 g/dL (13.0-16.5); Lymphocyte # 1.34 X10^3/ul (0.83-4.51); Lymphocyte % 12.8 % (19-41); Mean Corp Hgb Conc 33.8 g/dL (32-36); Mean Corpuscular Volume 85.8 fL (80-94); Mean Platelet Vol. 10.2 fl (6.2-12.0); Monocyte# 0.83 X10^3/uL; NRBC Flagged by Analyzer 0 % (0-5); Neutrophil # 8.08 X10^3/uL (2.7-7.7); Neutrophil % 77.4 % (47-70); Platelet Count 272 K/mm3 (150-450); RBC Distribution Width CV 15.7 % (11.6-14.6); RBC Distribution Width SD 49.6 fl (35.1-43.9); Red Blood Count 3.17 M/mm3 (4.6-6.2); White Blood Count 10.4 K/mm3 (4.4-11.0)
[2021-07-18 06:28] LABS: Anion Gap 7 (5-15); BUN 56 mg/dL (7-18); BUN/Creat Ratio 27.6 RATIO (10-20); Calcium,Total 7.8 mg/dL (8.5-10.1); Chloride 109 mmol/L (98-107); Creatinine, Serum 2.03 mg/dL (0.70-1.30); EST Glomerular Filtration Rate 34 mL/min (>60); Est Glom Filt Rate - Afr Amer 41 mL/min (>60); Estimated Creatinine Clearance 30.96 ml/min; Glucose 199 mg/dL (74-106); Potassium 4.5 mmol/L (3.5-5.1); Sodium Level 139 mmol/L (136-145)
[2021-07-18] MEDS: Chlorthalidone 50 MG Tablet 25 MG PO (08:36)
[2021-07-18] MEDS: Losartan Potassium 100 MG Tablet PO (08:36)
[2021-07-18] MEDS: dilTIAZem CD 180 MG Capsule 360 MG PO (08:37)
[2021-07-18] MEDS: Glimepiride 4 MG Tablet PO (08:38)
[2021-07-18] MEDS: Cyanocobalamin 500 MCG Tablet 1000 MCG PO (08:38)
[2021-07-18] MEDS: Pioglitazone Hydrochloride 15 MG Tablet PO (08:38)
[2021-07-18] MEDS: dexAMETHasone 10 MG/ML Vial 6 MG IV (08:38)
[2021-07-18] MEDS: Insulin Lispro 100 UNIT/ML INSULN.PEN SC ×6 (08:45→20:09)
[2021-07-18 08:51] LABS: Bedside Glucose 207 mg/dL (70-110)
[2021-07-18 11:55] LABS: Bedside Glucose 418 mg/dL (70-110)
--- NOTE | 2021-07-18 12:01 | PCM.PN.HOSP ---
Subjective Subjective Doing well, did go into A. fib with RVR this morning secondary to not getting his Cardizem last night because of bradycardia. This resolved with his Cardizem this morning. Also discusses having some dark stools prior to admission and then he had a bowel movement this morning which had some dark stools as well as some bright red blood on the toilet paper. Hemoglobin has trended downwards. Objective Data Objective Data Vital Signs: Vital Signs Temp Pulse Resp BP Pulse Ox 97.2 F L 88 18 139/80 H 93 07/18/21 08:35 07/18/21 08:35 07/18/21 08:35 07/18/21 08:35 07/18/21 08:35 Oxygen Flow Rate (L/min) 2 Oxygen Delivery Method Room Air Weight: 266 lb 8.622 oz Body Mass Index (BMI) 39.4 Intake & Output: Intake and Output for Last 24 Hours 07/17/21 07/18/21 07/19/21 03:59 03:59 03:59 Intake Total 2042 219 / 2197 714 / 714 Balance 2042 / 2197 714 / 714 Lab / Micro Data Result Diagrams: 07/18/21 04:44 07/18/21 04:44 Labs: Laboratory Results - last 24 hr 07/17/21 16:19: POC Glucose 403 H 07/17/21 20:50: POC Glucose 310 H 07/18/21 04:44: WBC 10.4, RBC 3.17 L, Hgb 9.2 L, Hct 27.2 L, MCV 85.8, MCH 29.0, MCHC 33.8, RDW Std Deviation 49.6 H, RDW Coeff of Rodrigo 15.7 H, Plt Count 272, MPV 10.2, Immature Gran % (Auto) 1.700 H, Neut % (Auto) 77.4 H, Lymph % (Auto) 12.8 L, [place] % (Auto) 8.0, Eos % (Auto) 0.0, Baso % (Auto) 0.1, Absolute Neuts (auto) 8.1 H, Absolute Lymphs (auto) 1.34, Nucleated RBC % 0 07/18/21 04:44: Sodium 139, Potassium 4.5, Chloride 109 H, Carbon Dioxide 23.0, Anion Gap 7, BUN 56 H, Creatinine 2.03 H, Estim Creat Clear Calc 30.96, Est GFR (MDRD) Af Amer 41 L, Est GFR (MDRD) Non-Af 34 L, BUN/Creatinine Ratio 27.6 H, Glucose 199 H, Calcium 7.8 L 07/18/21 08:44: POC Glucose 207 H 07/18/21 11:30: POC Glucose 418 H Micro: Microbiology 07/15/21 23:25 Blood Culture (Wb) - Left Hand Blood Culture - Preliminary No growth in 48 hours. 07/15/21 23:10 Blood Culture (Wb) - Anticubital Right Blood Culture - Preliminary No growth in 48 hours. 07/16/21 10:23 Urine, Clean Catch Legionella Antigen - Final 07/16/21 10:23 Urine, Clean Catch Streptococcus pneumoniae Antigen (M - Final Physical Exam Const alert, oriented x3 and no apparent distress General Appearance: cooperative HEENT normocephalic and moist oral mucous membranes Eyes PERRL, EOMs intact bilaterally and conjunctivae normal Neck supple and no JVD Resp normal respiratory effort, no retractions, no use of accessory muscles and clear to auscultation bilaterally Auscultation: Negative for crackles, rales, rhonchi or wheezes Cardio regular rate, regular rhythm, S1 normal heart sound, S2 normal heart sound and no murmurs GI soft to palpation, non-tender and non-distended; Negative for hepatosplenomegaly Extremity no clubbing, cyanosis or edema Skin no rashes or lesions noted Neuro no focal motor deficits and no sensory deficits noted Psych affect normal Appearance: appropriate Assessment & Plan Assessment/Plan (1) COVID-19: (2) MYAH (acute kidney injury): PLAN: 1. COVID-19 pneumonia/MYAH/L GIB -Continue with Decadron, will discontinue remdesivir secondary to kidney disease -D-dimer was normal -Currently not requiring any oxygen -Kidney function at 2.03 today, -Stable off oxygen however now is indicating dark stools and blood on his toilet paper his hemoglobin has trended from 10.5 on admission down to 9.2 today. We will repeat hemoglobin in the morning, and if it stable could plan for discharge then with follow-up with gastroenterology for scope -If his hemoglobin does continue to drop we will hold his Xarelto 2. A. fib/HTN no change -Continue with anticoagulation and rate control medication -Continue with simvastatin -Hold chlorthalidone valsartan 3. DM2 -Continuing with his glipizide and pioglitazone, hold Metformin -We will place Lantus as well as sliding scale DVT: Xarelto Charges/Coding Visit Charges Inpatient E&M: 50542 Subs Hosp L2
[2021-07-18] MEDS: Insulin Lispro 100 UNIT/ML INSULN.PEN 10 UNIT SC (16:00)
[2021-07-18 16:26] LABS: Bedside Glucose 344 mg/dL (70-110)
[2021-07-18] MEDS: Doxazosin 4 MG Tablet 8 MG PO (20:08)
[2021-07-18] MEDS: Atorvastatin Calcium 10 MG Tablet PO (20:08)
[2021-07-18] MEDS: Rivaroxaban 15 MG Tablet PO (20:08)
[2021-07-18 22:06] LABS: Bedside Glucose 289 mg/dL (70-110)
[2021-07-19 02:30] VITALS: BP 104/68; PULSE 69; RESP 18; TEMP 36.4; O2SAT 93
[2021-07-19 02:45] VITALS: PULSE 91
[2021-07-19 07:42] LABS: Absolute Lymphocyte Count 2.21 X10^3/uL (0.83-4.51); Absolute Neutrophil Count 9.5 X10^3/uL (2.0-7.7); Basophil# 0.03 X10^3/uL; Basophil% 0.2 % (0-1); Hematocrit 30.9 % (40-54); Hemoglobin 10.6 g/dL (13.0-16.5); Lymphocyte # 2.21 X10^3/ul (0.83-4.51); Lymphocyte % 16.5 % (19-41); Mean Corp Hgb Conc 34.3 g/dL (32-36); Mean Corpuscular Hgb 28.9 pg (27.0-32.0); Mean Corpuscular Volume 84.2 fL (80-94); Mean Platelet Vol. 10.1 fl (6.2-12.0); Monocyte# 1.11 X10^3/uL; Monocyte% 8.3 % (0-10); NRBC Flagged by Analyzer 0 % (0-5); Neutrophil # 9.51 X10^3/uL (2.7-7.7); Neutrophil % 70.9 % (47-70); Platelet Count 345 K/mm3 (150-450); RBC Distribution Width CV 15.5 % (11.6-14.6); RBC Distribution Width SD 47.9 fl (35.1-43.9); Red Blood Count 3.67 M/mm3 (4.6-6.2); White Blood Count 13.4 K/mm3 (4.4-11.0)
[2021-07-19 08:00] VITALS: PULSE 77
[2021-07-19 08:05] LABS: Anion Gap 8 (5-15); BUN 52 mg/dL (7-18); BUN/Creat Ratio 29.7 RATIO (10-20); Calcium,Total 8.5 mg/dL (8.5-10.1); Chloride 108 mmol/L (98-107); Creatinine, Serum 1.75 mg/dL (0.70-1.30); EST Glomerular Filtration Rate 40 mL/min (>60); Est Glom Filt Rate - Afr Amer 49 mL/min (>60); Estimated Creatinine Clearance 35.91 ml/min; Glucose 194 mg/dL (74-106); Potassium 4.3 mmol/L (3.5-5.1); Sodium Level 139 mmol/L (136-145)
[2021-07-19] MEDS: Insulin Lispro 100 UNIT/ML INSULN.PEN 10 UNIT SC ×2 (08:52→12:44)
[2021-07-19] MEDS: Insulin Lispro 100 UNIT/ML INSULN.PEN SC ×2 (08:53→12:44)
[2021-07-19 09:00] VITALS: BP 116/60; PULSE 70; RESP 18; TEMP 36.3; O2SAT 95
[2021-07-19] MEDS: Pioglitazone Hydrochloride 15 MG Tablet PO (09:15)
[2021-07-19] MEDS: Glimepiride 4 MG Tablet PO (09:16)
[2021-07-19] MEDS: Chlorthalidone 50 MG Tablet 25 MG PO (09:16)
[2021-07-19] MEDS: Losartan Potassium 100 MG Tablet PO (09:16)
[2021-07-19] MEDS: Cyanocobalamin 500 MCG Tablet 1000 MCG PO (09:16)
[2021-07-19] MEDS: 0.9% Saline Lock 10 ML Syringe IV (09:16)
[2021-07-19] MEDS: dexAMETHasone 10 MG/ML Vial 6 MG IV (09:17)
[2021-07-19] MEDS: dilTIAZem CD 180 MG Capsule 360 MG PO (09:17)
--- NOTE | 2021-07-19 09:53 | PCM.PN.HOSP ---
Objective Data Objective Data Vital Signs: Vital Signs Temp Pulse Resp BP Pulse Ox 97.3 F L 70 18 116/60 95 07/19/21 09:00 07/19/21 09:00 07/19/21 09:00 07/19/21 09:00 07/19/21 09:00 Oxygen Flow Rate (L/min) 2 Oxygen Delivery Method Room Air Weight: 118.9 kg Body Mass Index (BMI) 39.4 Intake & Output: Intake and Output for Last 24 Hours 07/17/21 07/18/21 07/19/21 23:59 23:59 23:59 Intake Total 1178 / 1478 1973 Balance 1178 / 1478 1973 Lab / Micro Data Result Diagrams: 07/19/21 06:50 07/19/21 06:50 Labs: Laboratory Results - last 24 hr 07/18/21 11:30: POC Glucose 418 H 07/18/21 15:59: POC Glucose 344 H 07/18/21 20:04: POC Glucose 289 H 07/19/21 06:50: WBC 13.4 H, RBC 3.67 L, Hgb 10.6 L, Hct 30.9 L, MCV 84.2, MCH 28.9, MCHC 34.3, RDW Std Deviation 47.9 H, RDW Coeff of Rodrigo 15.5 H, Plt Count 345, MPV 10.1, Immature Gran % (Auto) 4.100 H, Neut % (Auto) 70.9 H, Lymph % (Auto) 16.5 L, [place] % (Auto) 8.3, Eos % (Auto) 0.0, Baso % (Auto) 0.2, Absolute Neuts (auto) 9.5 H, Absolute Lymphs (auto) 2.21, Nucleated RBC % 0 07/19/21 06:50: Sodium 139, Potassium 4.3, Chloride 108 H, Carbon Dioxide 23.0, Anion Gap 8, BUN 52 H, Creatinine 1.75 H, Estim Creat Clear Calc 35.91, Est GFR (MDRD) Af Amer 49 L, Est GFR (MDRD) Non-Af 40 L, BUN/Creatinine Ratio 29.7 H, Glucose 194 H, Calcium 8.5 Micro: Microbiology 07/15/21 23:25 Blood Culture (Wb) - Left Hand Blood Culture - Preliminary No growth in 48 hours. 07/15/21 23:10 Blood Culture (Wb) - Anticubital Right Blood Culture - Preliminary No growth in 48 hours. 07/16/21 10:23 Urine, Clean Catch Legionella Antigen - Final 07/16/21 10:23 Urine, Clean Catch Streptococcus pneumoniae Antigen (M - Final Assessment & Plan Assessment/Plan (1) COVID-19: (2) MYAH (acute kidney injury): PLAN: 1. COVID-19 pneumonia/MYAH/L GIB -Continue with Decadron, will discontinue remdesivir secondary to kidney disease -D-dimer was normal -Currently not requiring any oxygen -Kidney function at 2.03 today, -Stable off oxygen however now is indicating dark stools and blood on his toilet paper his hemoglobin has trended from 10.5 on admission down to 9.2 today. We will repeat hemoglobin in the morning, and if it stable could plan for discharge then with follow-up with gastroenterology for scope -If his hemoglobin does continue to drop we will hold his Xarelto 2. A. fib/HTN no change -Continue with anticoagulation and rate control medication -Continue with simvastatin -Hold chlorthalidone valsartan 3. DM2 -Continuing with his glipizide and pioglitazone, hold Metformin -We will place Lantus as well as sliding scale DVT: Xarelto
[2021-07-19 11:59] VITALS: PULSE 66
--- NOTE | 2021-07-19 12:01 | DS.PCM_ITS ---
Providers Date of Admission: 07/16/21 Primary Care Physician: Dr. Albert Montes MD Consultations 07/16/21 02:05 Consult: Glass Inspector / Pulmonary Medicine Routine Consulting Provider: Pulmonary Medicine darnell Kim Reason for Consult: Covid-19 EMERGENT Consult: No MD Notified: Yes Date Notified: 07/16/21 Time Notified: 06:45 Method of Notification: Verbal Method of Consult:: In-Person Reason For Visit: COVID 19 Diagnosis Discharge Diagnosis (1) COVID-19: Status: Acute Code(s): U07.1 - COVID-19 (2) MYAH (acute kidney injury): Status: Acute Code(s): N17.9 - Acute kidney failure, unspecified Medications at Discharge Home Medications cyanocobalamin (vitamin B-12) 1,000 mcg PO DAILY@0800 06/30/14 diltiazem HCl 360 mg PO DAILY 06/30/14 doxazosin 8 mg PO QHS 06/30/14 glimepiride 4 mg PO DAILY 06/30/14 simvastatin 20 mg PO QHS 06/30/14 vitamin E (dl, acetate) 400 units PO DAILY 06/30/14 pioglitazone 15 mg PO DAILY 07/15/21 dexamethasone [Decadron] 6 mg PO DAILY #7 tab 07/19/21 Hospital Course Summary of Care Provided Minutes Spent on Discharge: 35 Hospital Course: Patient is a 77-year-old gentleman who has been vaccinated against COVID-19 with [employer] who presented with progressive shortness of breath and assessment of acute Covid pneumonia made admitted to the regular nursing floor for further management 1. COVID-19 pneumonia ?Admitted to regular nursing floor managed with Decadron admin started on remdesivir discontinued in view of impaired kidney function. Patient condition did improve discharged home after 3 days of hospitalization 2. Acute kidney injury ?Secondary to combination of medications as well as dehydration. Patient was on chlorthalidone this was discontinued managed with IV fluids kidney function did improve at the time of discharge 3. Diabetes mellitus type 2 ?Metformin discontinued in view of impaired kidney function did continue glimepiride on discharge 4. Lower GI bleed ?Patient was on Xarelto for paroxysmal A. fib this was discontinued. Patient to follow-up with PCP for referral to GI for endoscopic evaluation prior to resumption 5. Hypertension ?Patient was on valsartan as well as chlorthalidone discontinued in view of impaired kidney function 6. DVT prophylaxis ?Patient was on Xarelto discontinued at discharge as a result of lower GI bleed Physical Exam Narrative GENERAL: cooperative HEENT: Atraumatic; EYES; Anicteric, Normal Conjunctiva NECK; supple, normal thyroid, RESPIRATORY: Diminished to auscultation CARDIOVASCULAR: Regular S1 S2, GI: soft, normoactive bowel sounds, SKIN: No Rash PSYCH; Flat affect Weight / BMI Weight Weight: 118.9 kg Body Mass Index (BMI) 39.4 ABG / Lab / Microbiology Data Result Diagrams: 07/19/21 06:50 07/19/21 06:50 Laboratory: Laboratory Results - last 24 hr 07/18/21 15:59: POC Glucose 344 H 07/18/21 20:04: POC Glucose 289 H 07/19/21 06:50: WBC 13.4 H, RBC 3.67 L, Hgb 10.6 L, Hct 30.9 L, MCV 84.2, MCH 28.9, MCHC 34.3, RDW Std Deviation 47.9 H, RDW Coeff of Rodrigo 15.5 H, Plt Count 345, MPV 10.1, Immature Gran % (Auto) 4.100 H, Neut % (Auto) 70.9 H, Lymph % (Auto) 16.5 L, [place] % (Auto) 8.3, Eos % (Auto) 0.0, Baso % (Auto) 0.2, Absolute Neuts (auto) 9.5 H, Absolute Lymphs (auto) 2.21, Nucleated RBC % 0 07/19/21 06:50: Sodium 139, Potassium 4.3, Chloride 108 H, Carbon Dioxide 23.0, Anion Gap 8, BUN 52 H, Creatinine 1.75 H, Estim Creat Clear Calc 35.91, Est GFR (MDRD) Af Amer 49 L, Est GFR (MDRD) Non-Af 40 L, BUN/Creatinine Ratio 29.7 H, Glucose 194 H, Calcium 8.5 Microbiology: Microbiology 07/15/21 23:25 Blood Culture (Wb) - Left Hand Blood Culture - Preliminary No growth in 48 hours. 07/15/21 23:10 Blood Culture (Wb) - Anticubital Right Blood Culture - Preliminary No growth in 48 hours. 07/16/21 10:23 Urine, Clean Catch Legionella Antigen - Final 07/16/21 10:23 Urine, Clean Catch Streptococcus pneumoniae Antigen (M - Final D/C Instructions Discharge Diet: 1800 Calorie Control Diet Discharge Activity: Return to Normal Activity Call your doctor if you observe: Fever of 101 or Higher, Shortness of breath, Fainting spells and Chest pain Additional Instructions: Patient not to take Xarelto until instructed by primary care physician. Will need to be referred by primary care physician for GI evaluation for possible endoscopic evaluation Meaningful Use Info Meaningful Use Diagnoses (Choose all that apply): None applicable Discharge Plan Admission Admit Date/Time: 07/16/21 00:53 Attending Provider: aBrrett Soares Primary Care Provider: Albert Montes Consulting Providers: Jayden Hansen ; Salvatore Lujan ; Lidia Carver [employer] Discharge Orders/Prescriptions Prescriptions: New dexamethasone [Decadron] 6 mg tablet 6 mg PO DAILY Qty: 7 RF: 0 Continued glimepiride 2 MG tablet 4 mg PO DAILY RF: 0 cyanocobalamin (vitamin B-12) 500 MCG tablet 1,000 mcg PO DAILY@0800 RF: 0 simvastatin 20 MG tablet 20 mg PO QHS RF: 0 doxazosin 4 MG tablet 8 mg PO QHS RF: 0 diltiazem HCl 120 MG capsule 360 mg PO DAILY RF: 0 vitamin E (dl, acetate) 400 UNITS capsule 400 units PO DAILY RF: 0 pioglitazone 15 mg Tablet 15 mg PO DAILY RF: 0 Discontinued metformin 1,000 MG tablet 500 mg PO BIDCM RF: 0 Valsartan [Diovan] 320 MG tablet 320 mg PO DAILY RF: 0 chlorthalidone 25 mg Tablet 25 mg PO DAILY RF: 0 Xarelto 15 mg Tablet 15 mg PO DAILY RF: 0 Referrals / Follow Up: Albert Montes MD [Primary Care Provider] - In 1 Week (Patient will need referral to GI.) Disposition Disposition (needs filled in before D/C Order can be placed): Home, Self Care Charges/Coding Visit Charges Inpatient E&M: 28571 Disch Hosp
--- NOTE | 2021-07-19 12:10 | CASEMGMT ---
Pt independent in room and therapy signed off. Pt is on room air at rest but to be tested for ambulatory home oxygen prior to discharge. Henry MOORE CM
[2021-07-19 12:40] VITALS: O2SAT 93; O2SAT 95
[2021-07-19 12:55] LABS: Bedside Glucose 269 mg/dL (70-110)
--- NOTE | 2021-07-19 13:13 | CASEMGMT ---
Per Yg MOORE, pt does not qualify for any home oxygen and pt has been independent in the room. Pt ready for discharge. Henry MOORE CM
--- NOTE | 2021-07-19 14:08 | PHA.DC.MR ---
Pharmacy Service has performed discharge medication reconciliation for this patient. The patient's discharge medication list was reviewed for discrepancies and discrepancies were resolved. Unable to attempt to call and membership counselor before discharged. Home Medications cyanocobalamin (vitamin B-12) 1,000 mcg PO DAILY@0800 06/30/14 diltiazem HCl 360 mg PO DAILY 06/30/14 doxazosin 8 mg PO QHS 06/30/14 glimepiride 4 mg PO DAILY 06/30/14 simvastatin 20 mg PO QHS 06/30/14 vitamin E (dl, acetate) 400 units PO DAILY 06/30/14 pioglitazone 15 mg PO DAILY 07/15/21 dexamethasone [Decadron] 6 mg PO DAILY #7 tab 07/19/21
--- NOTE | 2021-07-20 12:16 | CASEMGMT ---
ELLIE DC F/u Call DC Date: 07/19/2021 DC Diagnosis: COVID-19 DC Disposition: Home Lace/Strata: 05/17 Called patient listed home number on demographics, patient answered. This tag writer introduced self and role. Patient states that he is doing okay and confirmed picked up his DC rx steroid. Denies any questions, issues, or concerns with medication, ACI, or f/u. Thanked patient for choosing care with [facility] and phone conversation ended. ELLIE Obrien
== END 2021-07-19 14:04 | disposition home or self-care (01) | DRG 177 ==
LOC: ED 23:33 → PCU 07-16 04:40
PROVIDERS: Family Medicine; Nurse Practitioner Family; Admitting Provider Hospitalist; Emergency Provider Emergency Medicine; PCP Internal Medicine; Visit Provider Internal Medicine
DX: U07.1 COVID-19 (principal); J12.82 Pneumonia due to coronavirus disease 2019; J96.01 Acute respiratory failure with hypoxia; N17.9 Acute kidney failure, unspecified; E22.2 Syndrome of inappropriate secretion of antidiuretic hormone; K92.2 Gastrointestinal hemorrhage, unspecified; I49.1 Atrial premature depolarization; I49.3 Ventricular premature depolarization; E11.9 Type 2 diabetes mellitus without complications; E66.01 Morbid (severe) obesity due to excess calories; D50.0 Iron deficiency anemia secondary to blood loss (chronic); E78.5 Hyperlipidemia, unspecified; E83.51 Hypocalcemia; G47.30 Sleep apnea, unspecified; E86.0 Dehydration; Z68.39 Body mass index [BMI] 39.0-39.9, adult; I10 Essential (primary) hypertension; I48.0 Paroxysmal atrial fibrillation; Z85.528 Personal history of other malignant neoplasm of kidney; Z90.5 Acquired absence of kidney; Z79.84 Long term (current) use of oral hypoglycemic drugs; Z79.01 Long term (current) use of anticoagulants; Z79.899 Other long term (current) drug therapy; Z87.891 Personal history of nicotine dependence
CPT/HCPCS: 36415; 71045; 80048; 80053; 80076; 82962; 83605; 83615; 83735; 84100; 84145; 84484; 85025; 85379; 86140; 87040; 87449; 93005; 97802; 99251; 99285; J7030; J7040; J7050; M0243; A4216; G0463; Q0244

== ENCOUNTER → 2022-05-19 | Outpatient (CLI) | payer MEDICARE, OTHER, SELFPAY ==
--- NOTE | 2022-05-19 | LES_PTH ---
PATIENT: MAKAYLA RODRIGUEZ LOC: [facility] U#:[id number] AGE/SX: 76/M ROOM: RE05/19/[address]: Dr. Jose Armando Betancur DDS : 1945 BED: DIS: 05/19/2022 SPEC #: [id number] RECD: 05/19/22 13:02 STATUS: MIKHAIL KOKO #: [id number] IBRAHIMA: 05/19/22 00:[address]: Jose Armando Betancur DEPT: SURGICAL PATHOLOGY RECD BY: Anuja Giles ENTERED: 05/19/22 13:42 SP TYPE: Lesion OTHR DR: Dr. Albert Montes MD Tissues: Palate, NOS Procedures: Special Stain Group I Surgery Specimen Level IV GMS Stain (control) HEADER OPERATION: Biopsy PRE-OP DIAGNOSIS: Palatal swelling TISSUE SUBMITTED: Palate MICROSCOPIC DIAGNOSIS Palate lesion, biopsy: A piece of squamous mucosa with subepithelial acute and chronic inflammation and abscess formation. Negative for malignancy. See comment. JIMMY:jenni 05/20/2022 COMMENT Special stain for fungi is negative for organisms; matched control is appropriate. Correlation with clinical findings and appropriate follow up are necessary. Case has been reviewed in consultation with Dr. Vang who concurs with the above diagnosis. IDC:AM MICROSCOPIC DESCRIPTION Slides are reviewed. GROSS DESCRIPTION Received in fixative is one container labeled with the patient's name and designated palate. The specimen consists of ryan mucosal tissue measuring 1 x 0.5 cm and up to 0.5 cm in thickness. The specimen is inked, serially sectioned and submitted entirely in one cassette. / JIMMY:jenni 05/19/2022 TC:2 CPT: 45505, 50949
== END | disposition home or self-care (01) ==
PROVIDERS: PCP Internal Medicine; Visit Provider Dentist Oral and Maxillofacial Surgery
DX: K13.79 Other lesions of oral mucosa (principal)
CPT/HCPCS: 88305; 88312

== ENCOUNTER 2022-05-20 16:17 | Emergency (ER) | payer MEDICARE, OTHER, SELFPAY ==
[2022-05-20] VITALS (7 sets, daily range): BP systolic 122–127; BP diastolic 56–70; PULSE 70–84; RESP 16–18; TEMP 36.1; O2SAT 97–98; BMI 36.9
--- NOTE | 2022-05-20 16:32 | ED.RN ---
PT SPITTING LARGE AMOUNT OF BRIGHT RED BLOOD INTO A BOWL. BOWL NOTED TO HAVE MULTIPLE CLOTS. GAUZE PADS AND PRESSURE APPLIED TO THE ROOF OF PTS MOUTH WHERE BLOOD IS ORIGINATING FROM. WAITING FOR PHYSICIAN AT THIS TIME FOR FURTHER ORDERS.
[2022-05-20] MEDS: Lidocaine/Epi/Tetracaine 50 ML 1 APPLIC TOPICAL (18:50)
--- NOTE | 2022-05-20 19:50 | ED.RN ---
PT TELLS THIS RN THAT HE IS A TYPE 2 DIABETIC AND HE HAS NOT EATEN ALL DAY. PT REQUESTING FOR THIS RN TO CHECK BLOOD GLUCOSE. BLOOD GLUCOSE NOTED TO BE 92. DR. LAMB MADE AWARE AND GAVE OK FOR PT TO HAVE SOFT FOODS. APPLESAUCE GIVEN AT THIS TIME. WILL CONTINUE TO MONITOR FOR INCREASED BLEEDING FROM MOUTH.
[2022-05-20 20:06] LABS: Bedside Glucose 92 mg/dL (74-106)
--- NOTE | 2022-05-20 20:48 | EX.ED.DYSGE1 ---
HPI History of Present Illness Chief Complaint: Other, Pain/Inj Detail of Chief Complaint: mouth bleeding Informant: patient Onset/Context/Timing Onset: Today Context: Sudden Onset Timing: Continuous Quality: oozing blood Location: roof of mouth Current Severity: Moderate Maximum Severity: Moderate Worsened by: nothing Relieved by: holding pressure Associated Symptoms Associated Symptoms: none Narrative Narrative: Patient is on Xarelto for history of A. fib, he had a cyst on his hard palate drained yesterday by Dr. Betancur. He was doing well until today when spontaneously started bleeding. [facility] Medical History A-fib Diabetes Former smoker History of renal cell carcinoma HLD (hyperlipidemia) Kidney disease Sleep apnea Home Medications cyanocobalamin (vitamin B-12) 500 mcg tablet 1,000 mcg PO DAILY@0800 vitamin 06/30/14 [History Last Taken 06/30/14] diltiazem HCl 120 mg capsule,extended release 24 hr 360 mg PO DAILY heart rate 06/30/14 [History Last Taken 06/30/14] doxazosin 4 mg tablet 8 mg PO QHS prostate 06/30/14 [History Last Taken 06/29/14 22:00] glimepiride 2 mg tablet 4 mg PO DAILY diabetes 06/30/14 [History Last Taken 06/30/14] simvastatin 20 mg tablet 20 mg PO QHS cholesterol 06/30/14 [History Last Taken Unknown] vitamin E (dl, acetate) 180 mg (400 unit) capsule 400 units PO DAILY vitamin 06/30/14 [History Last Taken 06/30/14] pioglitazone 15 mg tablet 15 mg PO DAILY diabetes 07/15/21 [History Last Taken Unknown] dexamethasone 6 mg tablet (Decadron) 6 mg PO DAILY #7 tabs 07/19/21 [Rx Last Taken Unknown] Allergy/AdvReac Type Severity Reaction Status Date / Time No Known Allergies Allergy Verified 05/20/22 16:20 Surgical History History of nephrectomy Social History Smoking Status: Former smoker substance use type: does not use ROS ROS ED Constitutional Constitutional ED: Denies chills or fever(s) Eyes Eyes: Denies blurry vision or change in vision ENT ENT ED: Reports other Details: Bleeding see HPI ; Denies ear pain or sore throat Cardiovascular Cardiovascular: Denies chest pain or palpitations Respiratory/Chest Respiratory/Chest: Denies cough or dyspnea Gastrointestinal Gastrointestinal: Denies abdominal pain, melena, nausea or vomiting Musculoskeletal Musculoskeletal: Denies neck pain Integumentary Denies Abrasions, rash or wounds Neurologic Neurologic: Denies paresthesias or weakness Hematologic/Lymphatic Hematologic/Lymphatic: Reports easy bleeding and easy bruising EXAM Physical Exam Const Vital Signs: 05/20/22 16:20 05/20/22 16:18 05/20/22 17:18 Temperature 96.9 F L Temperature Source Temporal Pulse Rate 70 Respiratory Rate 16 18 Blood Pressure 127/67 H 123/56 H Blood Pressure Mean 87 78 Pulse Ox 98 Oxygen Delivery Method Room Air 05/20/22 18:00 05/20/22 19:00 Temperature Temperature Source Pulse Rate Respiratory Rate 16 18 Blood Pressure Blood Pressure Mean Pulse Ox Oxygen Delivery Method Positive well nourished and well developed General Appearance ED: well developed and NAD HEENT HEENT Narrative: Operative side hard palate oozing blood. It is soft and nontender. No trismus, tongue normal. Neck full ROM and supple Back/Spine normal ROM and normal to inspection Neuro oriented x3, no focal motor deficits and no sensory deficits noted Sensorium / Orientation: alert Psych mental status grossly normal and thought process normal Skin no wounds Rashes: no rashes MDM MDM MDM Narrative Medical decision making narrative: Initially put a piece of [place] against this area and had the patient hold pressure, this really helped control the bleeding but it was not resolved, I further added topical let to this. I did anesthetize the topical mucous membranes of his mouth, however it did help to stop the bleeding. He was watched for another 30 minutes after that, he ate applesauce, he did not have further bleeding. He is discharged and advised to hold his anticoagulant tonight and can restart it tomorrow night if he has no issues tomorrow. He and family are comfortable with that plan. Lab Data Labs: Laboratory Results - last 24 hr 05/20/22 19:44 POC Glucose 92 Discharge Plan Triage Chief Complaint: Other, Pain/Inj ED Provider: Peter Woodall Dx/Rx/DC Orders Clinical Impression: Postoperative hemorrhage from incision, Anticoagulated Instructions: ED Post Op Wound Check, Bleeding Prescriptions: No Action glimepiride 2 MG tablet 4 mg PO DAILY Label Comments: DIABETES cyanocobalamin (vitamin B-12) 500 MCG tablet 1,000 mcg PO DAILY@0800 Label Comments: VITAMIN simvastatin 20 MG tablet 20 mg PO QHS Label Comments: Cholesterol doxazosin 4 MG tablet 8 mg PO QHS Label Comments: HEART diltiazem HCl 120 MG capsule 360 mg PO DAILY Label Comments: HEART vitamin E (dl, acetate) 400 UNITS capsule 400 units PO DAILY Label Comments: VITAMIN pioglitazone 15 mg Tablet 15 mg PO DAILY dexamethasone [Decadron] 6 mg tablet 6 mg PO DAILY Qty: 7 0RF Primary Care Provider: Albert Montes Referrals: Jose Armando Betancur DDS [Med Staff - Active Staff] - As Needed Albert Montes MD [Primary Care Provider] - Activity Restrictions/Additional Instructions: Hold your blood thinner tonight. If tomorrow goes okay and you do not have any significant bleeding, you may restart it tomorrow. Disposition Disposition: Home, Self Care
== END 2022-05-20 21:01 | disposition home or self-care (01) ==
PROVIDERS: Emergency Provider Emergency Medicine; PCP Internal Medicine; Visit Provider Emergency Medicine
DX: L76.21 Postprocedural hemorrhage of skin and subcutaneous tissue following a dermatologic procedure (principal); I48.91 Unspecified atrial fibrillation; E11.9 Type 2 diabetes mellitus without complications; Z87.891 Personal history of nicotine dependence; E78.5 Hyperlipidemia, unspecified; Y83.8 Other surgical procedures as the cause of abnormal reaction of the patient, or of later complication, without mention of misadventure at the time of the procedure; Z85.528 Personal history of other malignant neoplasm of kidney; G47.30 Sleep apnea, unspecified; Z79.84 Long term (current) use of oral hypoglycemic drugs; Z79.899 Other long term (current) drug therapy; Z79.01 Long term (current) use of anticoagulants
CPT/HCPCS: 82962; 99282

== ENCOUNTER 2022-08-27 08:10 | Emergency (ER) | payer MEDICARE, OTHER, SELFPAY ==
[2022-08-27 08:11] VITALS: BP 146/53; PULSE 74; RESP 14; TEMP 36.6; O2SAT 98; BMI 35.6
--- NOTE | 2022-08-27 08:29 | EX.ED.DYSGE1 ---
HPI <Dr. Peter Woodall MD - Last Filed: 08/27/22 15:52> History of Present Illness Chief Complaint: Hypoglycemia Informant: patient and family Onset/Context/Timing Onset: Yesterday Context: Gradual Onset Timing: Waxes and wanes Quality: Hypoglycemia 40s-50s Current Severity: Gone Maximum Severity: Moderate Worsened by: Low blood sugar Relieved by: Eating and drinking carbohydrate Associated Symptoms Associated Symptoms: Sweats, shaking Narrative Narrative: Patient had stomach flu with vomiting and diarrhea the day before yesterday lasted about 24 hours, felt a lot better the latter part of the day yesterday, and started eating and drinking again. He had been taking his diabetes medicines as prescribed and did not change anything, he is a type II diabetic on pioglitazone, Farxiga, and glimepiride. He has not yet taken his glimepiride 4 mg this morning, he takes it every morning and last took it yesterday. He is on no insulins. Overnight his blood sugar kept dropping despite him drinking Sprite. This morning he drinks more, ate a bowl of oats, ate a peanut butter sandwich, and took a glucose tablet, 1.5 hours ago it was in the 50s and they decided to come to the ED because he was up all night with this issue. Last time they checked it it was in the 70s. He states he has some mild diarrhea but much better than before no more nausea or vomiting. No abdominal pains or fevers/chills. No other symptoms. [facility] <Dr. Peter Woodall MD - Last Filed: 08/27/22 15:52> [facility] Medical History A-fib Diabetes Former smoker History of renal cell carcinoma HLD (hyperlipidemia) Kidney disease Sleep apnea Home Medications cyanocobalamin (vitamin B-12) 500 mcg tablet 1,000 mcg PO DAILY@0800 vitamin 06/30/14 [History Last Taken 06/30/14] diltiazem HCl 120 mg capsule,extended release 24 hr 120 mg PO DAILY heart rate 06/30/14 [History Last Taken 06/30/14] doxazosin 4 mg tablet 8 mg PO QHS prostate 06/30/14 [History Last Taken 06/29/14 22:00] glimepiride 2 mg tablet 4 mg PO DAILY diabetes 06/30/14 [History Last Taken 06/30/14] simvastatin 20 mg tablet 20 mg PO QHS cholesterol 06/30/14 [History Last Taken Unknown] vitamin E (dl, acetate) 180 mg (400 unit) capsule 400 units PO DAILY vitamin 06/30/14 [History Last Taken 06/30/14] pioglitazone 15 mg tablet 15 mg PO DAILY diabetes 07/15/21 [History Last Taken Unknown] dexamethasone 6 mg tablet (Decadron) 6 mg PO DAILY #7 tabs 07/19/21 [Rx Last Taken Unknown] rivaroxaban 15 mg tablet (Xarelto) 15 mg PO DAILY 08/27/22 [History Last Taken Unknown] Allergy/AdvReac Type Severity Reaction Status Date / Time No Known Allergies Allergy Verified 08/27/22 08:13 Surgical History History of nephrectomy Social History Smoking Status: Former smoker substance use type: does not use ROS <Dr. Peter Woodall MD - Last Filed: 08/27/22 15:52> ROS ED Constitutional Constitutional ED: Denies chills or fever(s) Eyes Eyes: Denies change in vision or diplopia ENT ENT ED: Denies rhinorrhea or sore throat Cardiovascular Cardiovascular: Denies chest pain or palpitations Respiratory/Chest Respiratory/Chest: Denies cough or dyspnea Gastrointestinal Gastrointestinal: Reports diarrhea; Denies abdominal pain, nausea or vomiting Genitourinary Genitourinary ED: Denies dysuria or hematuria Musculoskeletal Musculoskeletal: Denies back pain or neck pain Integumentary Denies abscess or rash Neurologic Neurologic: Denies headache(s), paresthesias or weakness Psychiatric Psychiatric: Denies anxiety or suicidal thoughts EXAM <Dr. Peter Woodall MD - Last Filed: 08/27/22 15:52> Physical Exam Const Vital Signs: 08/27/22 08:11 08/27/22 09:06 08/27/22 10:10 Temperature 97.9 F Temperature Source Temporal Pulse Rate 74 Respiratory Rate 14 18 Respiratory Effort Normal Non-Labored Respiratory Pattern Normal Blood Pressure 146/53 H Blood Pressure Mean 84 Pulse Ox 98 Oxygen Delivery Method Room Air 08/27/22 12:00 08/27/22 14:28 08/27/22 21:51 Temperature Temperature Source Pulse Rate 72 66 62 Respiratory Rate 20 H 18 15 Respiratory Effort Respiratory Pattern Blood Pressure 138/84 H 129/58 H Blood Pressure Mean 102 81 Pulse Ox 95 98 98 Oxygen Delivery Method Room Air Room Air Positive well nourished, well developed and obese Constitutional Narrative: Well-appearing, conversive in full sentences and keenly alert General Appearance ED: well developed and NAD Nutritional Appearance: obese HEENT Reports moist mucous membranes normocephalic and atraumatic Eyes PERRL and EOMs intact bilaterally Neck full ROM and supple Resp normal respiratory effort and clear to auscultation bilaterally Cardio regular rate, regular rhythm and no murmurs GI non-tender and non-distended Auscultation: normoactive bowel sounds Palpation: soft Back/Spine no CVA tenderness General Back: other FROM Extremity normal to inspection General Extremety ED: Negative for edema, pulses abnormal or tenderness General Extremity: Negative for edema or pulses abnormal Neuro oriented x3, CN's II-XII intact bilaterally and no sensory deficits noted Sensorium / Orientation: awake and alert Motor Exam: strength 5/5 throughout Skin no rashes or lesions noted and no wounds <Dr. Isreal Sexton MD - Last Filed: 08/27/22 23:42> Physical Exam Const Vital Signs: 08/27/22 08:11 08/27/22 09:06 08/27/22 10:10 Temperature 97.9 F Temperature Source Temporal Pulse Rate 74 Respiratory Rate 14 18 Respiratory Effort Normal Non-Labored Respiratory Pattern Normal Blood Pressure 146/53 H Blood Pressure Mean 84 Pulse Ox 98 Oxygen Delivery Method Room Air 08/27/22 12:00 08/27/22 14:28 08/27/22 21:51 Temperature Temperature Source Pulse Rate 72 66 62 Respiratory Rate 20 H 18 15 Respiratory Effort Respiratory Pattern Blood Pressure 138/84 H 129/58 H Blood Pressure Mean 102 81 Pulse Ox 95 98 98 Oxygen Delivery Method Room Air Room Air MDM <Dr. Peter Woodall MD - Last Filed: 08/27/22 15:52> MDM MDM Narrative Medical decision making narrative: Blood sugar in the 70s, on the BMP it is in the high 60s, and his potassium was also low at 2.9 likely due to the recent GI illness. Chronic renal insufficiency a little worse compared to prior. He was given an infusion of D10 in addition to some fluids, oral potassium, and two potassium IV riders. Patient was feeling normal and eating and drinking well, we were considering discharge but when the patient was checked again his blood sugar was 67 after it was earlier 122. We gave him something to eat and drink and then on recheck he is 54. We gave him more glucose orally as the nurse had discontinued his IV as we were anticipating discharge, and after that his blood sugar is 57. Patient really does not anything else to eat, he was given a little bit of apple cider and his blood sugar is in the 70s. We are going to monitor him without giving him any other sugar and if he continues to drop, we will replace an IV and give him a D5 drip and consider observing him in the hospital. Lab Data Attestation: I reviewed the patient's lab results. Labs: Laboratory Results - last 24 hr 08/27/22 08/27/22 08/27/22 08:33 08:36 10:03 Sodium 139 Potassium 2.9 L Chloride 106 Carbon Dioxide 26.0 Anion Gap 7 BUN 43 H Creatinine 2.26 H Estim Creat Clear Calc 27.37 Est GFR (MDRD) Af Amer 36 L Est GFR (MDRD) Non-Af 30 L BUN/Creatinine Ratio 19.0 Glucose 69 L Calcium 8.5 POC Glucose 79 122 H 08/27/22 08/27/22 08/27/22 12:52 13:46 14:25 Sodium Potassium Chloride Carbon Dioxide Anion Gap BUN Creatinine Estim Creat Clear Calc Est GFR (MDRD) Af Amer Est GFR (MDRD) Non-Af BUN/Creatinine Ratio Glucose Calcium POC Glucose 67 L 54 L 57 L 08/27/22 08/27/22 08/27/22 14:59 15:47 16:25 Sodium Potassium Chloride Carbon Dioxide Anion Gap BUN Creatinine Estim Creat Clear Calc Est GFR (MDRD) Af Amer Est GFR (MDRD) Non-Af BUN/Creatinine Ratio Glucose Calcium POC Glucose 66 L 75 85 08/27/22 08/27/22 08/27/22 17:06 18:14 19:19 Sodium Potassium Chloride Carbon Dioxide Anion Gap BUN Creatinine Estim Creat Clear Calc Est GFR (MDRD) Af Amer Est GFR (MDRD) Non-Af BUN/Creatinine Ratio Glucose Calcium POC Glucose 77 71 L 81 08/27/22 21:44 Sodium Potassium Chloride Carbon Dioxide Anion Gap BUN Creatinine Estim Creat Clear Calc Est GFR (MDRD) Af Amer Est GFR (MDRD) Non-Af BUN/Creatinine Ratio Glucose Calcium POC Glucose 87 <Dr. Isreal Sexton MD - Last Filed: 08/27/22 23:42> [facility] MDM Narrative Medical decision making narrative: Blood sugar in the 70s, on the BMP it is in the high 60s, and his potassium was also low at 2.9 likely due to the recent GI illness. Chronic renal insufficiency a little worse compared to prior. He was given an infusion of D10 in addition to some fluids, oral potassium, and two potassium IV riders. Patient was feeling normal and eating and drinking well, we were considering discharge but when the patient was checked again his blood sugar was 67 after it was earlier 122. We gave him something to eat and drink and then on recheck he is 54. We gave him more glucose orally as the nurse had discontinued his IV as we were anticipating discharge, and after that his blood sugar is 57. Patient really does not anything else to eat, he was given a little bit of apple cider and his blood sugar is in the 70s. We are going to monitor him without giving him any other sugar and if he continues to drop, we will replace an IV and give him a D5 drip and consider observing him in the hospital. Patient's been watched here for more hours. He has not been given more glucose IV or orally. He has not been eating. His blood sugars have been stabilizing out at approximately 80. He feels good. It ends up that he did take his Farxiga this morning. He took the pioglitazone a little bit later in the morning. He has not taken the glimepiride. He has had some soft bowel movements here but he has no nausea vomiting. I do note that he has slight bump in his creatinine. This may be altering clearance of some of his drugs. This is likely due to some dehydration from the day of nausea and vomiting that he had. But he no longer has those symptoms. He can eat. I gave him water here he can drink and feels well. He has people to watch him at home. He can check his sugars. He would prefer to go home. I explained that he should hold off taking further of his diabetes meds until he checks his sugar and it seems to be rising again. He should then take 1 med and if his sugars are still rising into the mid 100s he can take a second med. He should hold off on the third for at least another day. If he has any problems with dropping blood sugars he should return. He does normally take a snack of either an egg or oatmeal or the combination at night. I recommend he should still do this. We do want him to continue caloric intake both complex carbohydrates as well as some fats and protein. Lab Data Labs: Laboratory Results - last 24 hr 08/27/22 08/27/22 08/27/22 08:33 08:36 10:03 Sodium 139 Potassium 2.9 L Chloride 106 Carbon Dioxide 26.0 Anion Gap 7 BUN 43 H Creatinine 2.26 H Estim Creat Clear Calc 27.37 Est GFR (MDRD) Af Amer 36 L Est GFR (MDRD) Non-Af 30 L BUN/Creatinine Ratio 19.0 Glucose 69 L Calcium 8.5 POC Glucose 79 122 H 08/27/22 08/27/22 08/27/22 12:52 13:46 14:25 Sodium Potassium Chloride Carbon Dioxide Anion Gap BUN Creatinine Estim Creat Clear Calc Est GFR (MDRD) Af Amer Est GFR (MDRD) Non-Af BUN/Creatinine Ratio Glucose Calcium POC Glucose 67 L 54 L 57 L 08/27/22 08/27/22 08/27/22 14:59 15:47 16:25 Sodium Potassium Chloride Carbon Dioxide Anion Gap BUN Creatinine Estim Creat Clear Calc Est GFR (MDRD) Af Amer Est GFR (MDRD) Non-Af BUN/Creatinine Ratio Glucose Calcium POC Glucose 66 L 75 85 08/27/22 08/27/22 08/27/22 17:06 18:14 19:19 Sodium Potassium Chloride Carbon Dioxide Anion Gap BUN Creatinine Estim Creat Clear Calc Est GFR (MDRD) Af Amer Est GFR (MDRD) Non-Af BUN/Creatinine Ratio Glucose Calcium POC Glucose 77 71 L 81 08/27/22 21:44 Sodium Potassium Chloride Carbon Dioxide Anion Gap BUN Creatinine Estim Creat Clear Calc Est GFR (MDRD) Af Amer Est GFR (MDRD) Non-Af BUN/Creatinine Ratio Glucose Calcium POC Glucose 87 Discharge Plan Triage Chief Complaint: Hypoglycemia ED Provider: Peter Woodall Dx/Rx/DC Orders Clinical Impression: Hypoglycemia associated with type 2 diabetes mellitus, Hypokalemia due to excessive gastrointestinal loss of potassium, MYAH (acute kidney injury) Instructions: ED Hypoglycemia Oral Diabetic ..., ED Hypokalemia Prescriptions: No Action glimepiride 2 MG tablet 4 mg PO DAILY Label Comments: DIABETES cyanocobalamin (vitamin B-12) 500 MCG tablet 1,000 mcg PO DAILY@0800 Label Comments: VITAMIN simvastatin 20 MG tablet 20 mg PO QHS Label Comments: Cholesterol doxazosin 4 MG tablet 8 mg PO QHS Label Comments: HEART diltiazem HCl 120 MG capsule 120 mg PO DAILY Label Comments: HEART vitamin E (dl, acetate) 400 UNITS capsule 400 units PO DAILY Label Comments: VITAMIN pioglitazone 15 mg Tablet 15 mg PO DAILY dexamethasone [Decadron] 6 mg tablet 6 mg PO DAILY Qty: 7 0RF Xarelto 15 mg tablet 15 mg PO DAILY Primary Care Provider: Albert Montes Referrals: Albert Montes MD [Primary Care Provider] - 3-5 Days Activity Restrictions/Additional Instructions: Do not take your glimepiride today, but you may take your other medications as prescribed. You may resume your glimepiride tomorrow as long as you are back to a normal diet. Disposition Disposition: Home, Self Care Discharge Date/Time: 08/27/22 21:51
[2022-08-27 08:56] LABS: Bedside Glucose 79 mg/dL (74-106)
[2022-08-27 08:58] LABS: Anion Gap 7 (5-15); BUN 43 mg/dL (7-18); Calcium,Total 8.5 mg/dL (8.5-10.1); Chloride 106 mmol/L (98-107); Creatinine, Serum 2.26 mg/dL (0.70-1.30); EST Glomerular Filtration Rate 30 mL/min (>60); Est Glom Filt Rate - Afr Amer 36 mL/min (>60); Estimated Creatinine Clearance 27.37 ml/min; Glucose 69 mg/dL (74-106); Potassium 2.9 mmol/L (3.5-5.1); Sodium Level 139 mmol/L (136-145)
[2022-08-27] MEDS: Dextrose 10%-Water 250 ML 999 ML IV (09:02)
[2022-08-27] MEDS: Potassium Chloride 10mEq/100mL 10 MEQ/100 ML IV.SOLN. 100 MEQ IV BOLUS ×2 (09:47→11:14)
[2022-08-27] MEDS: Potassium Chloride Oral Tablet 20 MEQ 40 MEQ PO (10:01)
[2022-08-27 10:10] VITALS: RESP 18
[2022-08-27 10:26] LABS: Bedside Glucose 122 mg/dL (74-106)
[2022-08-27 12:00] VITALS: BP 138/84; PULSE 72; RESP 20; O2SAT 95
--- NOTE | 2022-08-27 13:03 | ED.RN ---
UPON RECEIVING DC INSTRUCTIONS, THIS RN CHECKS PTS BLOOD GLUCOSE LEVEL UPON REQUEST. LEVEL LOW AT THIS TIME. PER DR. LAMB, GIVE PT FOOD AND JUICE, RECHECK ACCUCHECK 30 MIN AFTER.
[2022-08-27 13:11] LABS: Bedside Glucose 67 mg/dL (74-106)
--- NOTE | 2022-08-27 13:49 | NURSING ---
PTS ACCUCHECK DONE AGAIN AND NOTED TO BE LOW AT 54. DR. LAMB MADE AWARE. NEW ORDER FOR ORAL GLUCOSE GEL AND MORE JUICE PO.
[2022-08-27 14:06] LABS: Bedside Glucose 54 mg/dL (74-106)
[2022-08-27 14:28] VITALS: BP 129/58; PULSE 66; RESP 18; O2SAT 98
[2022-08-27 14:46] LABS: Bedside Glucose 57 mg/dL (74-106)
[2022-08-27 15:21] LABS: Bedside Glucose 66 mg/dL (74-106)
[2022-08-27 16:06] LABS: Bedside Glucose 75 mg/dL (74-106)
[2022-08-27 16:45] LABS: Bedside Glucose 85 mg/dL (74-106)
[2022-08-27 17:25] LABS: Bedside Glucose 77 mg/dL (74-106)
[2022-08-27 18:36] LABS: Bedside Glucose 71 mg/dL (74-106)
[2022-08-27 19:40] LABS: Bedside Glucose 81 mg/dL (74-106)
[2022-08-27 21:51] VITALS: PULSE 62; RESP 15; O2SAT 98
[2022-08-27 22:06] LABS: Bedside Glucose 87 mg/dL (74-106)
== END 2022-08-27 21:51 | disposition home or self-care (01) ==
PROVIDERS: Emergency Provider Emergency Medicine; PCP Internal Medicine; Visit Provider Emergency Medicine
DX: E11.649 Type 2 diabetes mellitus with hypoglycemia without coma (principal); N17.9 Acute kidney failure, unspecified; E11.22 Type 2 diabetes mellitus with diabetic chronic kidney disease; N18.9 Chronic kidney disease, unspecified; E87.6 Hypokalemia; E78.5 Hyperlipidemia, unspecified; Z87.891 Personal history of nicotine dependence; E66.9 Obesity, unspecified
CPT/HCPCS: 80048; 82962; 96365; 96366; 96367; 99283; J7040; A4216

== ENCOUNTER 2024-10-07 17:42 | Inpatient (IN) | payer MEDICARE, OTHER, SELFPAY ==
[2024-10-07] VITALS (22 sets, daily range): BP systolic 135–156; BP diastolic 81–98; PULSE 100–141; RESP 19–30; TEMP 36.7–36.9; O2SAT 94–97; BMI 37.8; BMI 37.0
--- NOTE | 2024-10-07 18:27 | EKG12_ITS ---
Test Reason : DYSRHYTHMIA Blood Pressure : */* mmHG Vent. Rate : 117 BPM Atrial Rate : * BPM P-R Int : * ms QRS Dur : 96 ms QT Int : 332 ms P-R-T Axes : * 14 65 degrees QTcB Int : 463 ms Atrial fibrillation with rapid ventricular response Nonspecific ST and T wave abnormality Abnormal ECG Confirmed by RODERICK GROSS, JACKIE ([id number]), rewrite editor ALFONZO BUCKNER ([id number]) on 10/10/2024 2:23:19 PM Referred By: Barrett Waterman Confirmed By: JACKIE VAUGHN MD
--- NOTE | 2024-10-07 18:33 | ED.VIS.CHEST ---
HPI History of Present Illness Chief Complaint: Chest Pain Narrative Narrative: Chief complaint and HPI: Chest pain. 78-year-old male with history of atrial fibrillation, DM 2, HTN, HLD presents for evaluation of chest pain. Patient states around 5 PM while sitting down to have dinner he developed severe midsternal chest pain. He described it as an ache but states it was about a 10 out of 10. EMS was called. Patient received 4 aspirin prior to arrival. Patient currently states his pain is a 2 out of 10. Associated symptom was shortness of breath with the pain but denies shortness of breath at this time. Denies any diaphoresis, nausea, vomiting. Pain did not radiate down the arm or into the jaw. States he has not had a stress test in years. Endorses cough today. Denies any fever, chills, abdominal pain. Review of systems: See HPI Medications: As listed on the chart Allergies: As listed on the chart PFSH: Per chart Vital signs: As listed on the chart. Reviewed. Physical exam: Gen: A&O x3, NAD Head: Normocephalic, atraumatic Eyes: No sclera icterus, conjunctiva clear ENT: Moist mucous membranes Neck: Trachea midline, No JVD CV: Tachycardic, irregular rhythm, no murmurs, no peripheral edema, chest pain nonreproducible Resp: Lungs CTA BL, no w/r/c GI: Abd soft, non-distended, non-tender, no r/r/g Musc: Full ROM, no deformity Skin: Warm, dry Neuro: Alert, oriented, grossly intact, sensation intact Psych: Cooperative, appropriate mood and affect [facility] Medical History Diabetes Kidney disease Former smoker Sleep apnea HLD (hyperlipidemia) History of renal cell carcinoma A-fib Home Medications ?Medication ?Instructions ?Recorded ?Last Taken ?Type cyanocobalamin (vitamin B-12) 500 1,000 mcg PO DAILY@0800 vitamin 06/30/14 06/30/14 History mcg tablet doxazosin 4 mg tablet 8 mg PO QHS prostate 06/30/14 06/29/14 22:00 History glimepiride 2 mg tablet 4 mg PO DAILY diabetes 06/30/14 06/30/14 History simvastatin 20 mg tablet 20 mg PO QHS cholesterol 06/30/14 Unknown History vitamin E (dl, acetate) 180 mg 400 units PO DAILY vitamin 06/30/14 06/30/14 History (400 unit) capsule pioglitazone 15 mg tablet 15 mg PO DAILY diabetes 07/15/21 Unknown History dexamethasone 6 mg tablet 6 mg PO DAILY #7 tabs 07/19/21 Unknown Rx (Decadron) rivaroxaban 15 mg tablet (Xarelto) 15 mg PO DAILY 08/27/22 Unknown History dapagliflozin propanediol 10 mg 10 mg PO DAILY 10/07/24 Unknown History tablet dapagliflozin propanediol 10 mg 10 mg PO DAILY . 10/07/24 10/07/24 History tablet (Farxiga) diltiazem HCl 180 mg capsule,24 180 mg PO Q24H Heart Rate 10/07/24 10/07/24 History hr,extended release hydrochlorothiazide 12.5 mg tablet 12.5 mg PO DAILY 10/07/24 Unknown History losartan 100 mg tablet 100 mg PO DAILY 10/07/24 Unknown History Allergy/AdvReac Type Severity Reaction Status Date / Time No Known Allergies Allergy Verified 10/07/24 17:42 Surgical History History of nephrectomy Social History Smoking Status: Former smoker substance use type: does not use EXAM Physical Exam Const Vital Signs: 10/07/24 17:43 10/07/24 17:43 10/07/24 18:30 Temperature 98.4 F Temperature Source Oral Pulse Rate 105 H Respiratory Rate 30 H Respiratory Effort Normal Non-Labored Blood Pressure 156/94 H 147/98 H Blood Pressure Mean 114 114 Blood Pressure Source Blood Pressure Position Blood Pressure Location Pulse Ox 97 Oxygen Delivery Method Room Air 10/07/24 18:33 10/07/24 18:48 10/07/24 19:00 Temperature Temperature Source Pulse Rate 110 H 131 H 111 H Respiratory Rate 25 H 21 H 19 H Respiratory Effort Blood Pressure 148/86 H Blood Pressure Mean 102 Blood Pressure Source Blood Pressure Position Blood Pressure Location Pulse Ox 96 95 95 Oxygen Delivery Method 10/07/24 19:15 10/07/24 19:32 10/07/24 19:45 Temperature Temperature Source Pulse Rate 100 Respiratory Rate 25 H Respiratory Effort Blood Pressure Blood Pressure Mean Blood Pressure Source Blood Pressure Position Blood Pressure Location Pulse Ox 95 96 96 Oxygen Delivery Method 10/07/24 20:00 10/07/24 20:15 10/07/24 20:30 Temperature Temperature Source Pulse Rate 116 H 120 H 129 H Respiratory Rate 21 H 27 H 23 H Respiratory Effort Blood Pressure Blood Pressure Mean Blood Pressure Source Blood Pressure Position Blood Pressure Location Pulse Ox 95 96 96 Oxygen Delivery Method 10/07/24 20:32 10/07/24 20:45 10/07/24 21:00 Temperature Temperature Source Pulse Rate 106 H 112 H 129 H Respiratory Rate 25 H 22 H 26 H Respiratory Effort Blood Pressure 135/81 H 148/84 H Blood Pressure Mean 95 103 Blood Pressure Source Blood Pressure Position Blood Pressure Location Pulse Ox 96 95 96 Oxygen Delivery Method 10/07/24 21:15 10/07/24 21:30 10/07/24 21:45 Temperature Temperature Source Pulse Rate 123 H 106 H 125 H Respiratory Rate 24 H 23 H 24 H Respiratory Effort Blood Pressure Blood Pressure Mean Blood Pressure Source Blood Pressure Position Blood Pressure Location Pulse Ox 96 96 96 Oxygen Delivery Method 10/07/24 22:00 10/07/24 22:14 10/07/24 22:15 Temperature Temperature Source Pulse Rate 116 H 130 H Respiratory Rate 22 H 26 H Respiratory Effort Blood Pressure 143/81 H 143/81 H Blood Pressure Mean 98 101 Blood Pressure Source Monitor Blood Pressure Position Semi-Fowlers Blood Pressure Location Right Arm Pulse Ox 94 Oxygen Delivery Method 10/07/24 22:23 Temperature 98.1 F Temperature Source Pulse Rate 130 H Respiratory Rate 26 H Respiratory Effort Blood Pressure 143/81 H Blood Pressure Mean 101 Blood Pressure Source Blood Pressure Position Blood Pressure Location Pulse Ox 94 Oxygen Delivery Method MDM MDM MDM Narrative Medical decision making narrative: 78-year-old male with history of atrial fibrillation on Xarelto, DM 2, HTN, HLD presents for evaluation of chest pain. Patient received 4 aspirin prior to arrival and pain is now minimal. On chart review, I do not have any cardiac cath or stress to review. He did have an echo in 2013 that showed an EF of 65%. On presentation, patient is hypertensive with mild tachycardia. He is in atrial fibrillation in which he has a known history. Patient states that he is due for his nighttime diltiazem. Differential diagnosis includes but is not limited to ACS, electrolyte abnormality, GERD, PE, pneumonia, viral illness. Patient states that his pain is midsternal and he points more to his upper esophagus therefore we will try GI cocktail. Patient already received aspirin. EKG and chest x-ray reviewed, see below. CBC with mild leukocytosis of 11.6. No anemia. BMP shows baseline CKD with creatinine of 2.07. BNP mildly elevated at 103. Troponin 8. Repeat troponin increased to 11,141. On reevaluation, patient states his pain is minimal. He states that it is still a 1-2/10. Repeat EKG obtained given the increase in troponin. Repeat EKG is similar to previous. There may be some mild ST elevation in lead III however it is not seen in lead II or aVF. Concern is for NSTEMI however given patient's increase in troponin, interventional cardiology was consulted and patient was discussed with Dr. Sims He reviewed the EKGs. He agrees with heparin. Recommendation is for low-dose nitroglycerin drip. Okay for admission to medicine. No Plavix. Heparin drip was ordered without bolus given that patient is on Xarelto. Patient was discussed with the hospitalist Dr. Sanchez who accepted admission. He was made aware of the Plavix. Patient as well as family member on the phone and in the room were updated of all the results and confirmed understanding of the plan. EKG: Interpreted by me/EM physician: EKG shows atrial fibrillation with a heart rate of 101. Nonspecific ST changes. Repeat EKG shows atrial fibrillation with heart rate of 110. Again nonspecific ST wave abnormalities. Similar to previous EKG. Diagnostic: Interpreted by me/EM physician: Chest x-ray without pneumonia, effusion, pneumothorax Impression: 1. NSTEMI 2. CKD Lab Data Labs: Laboratory Results - last 24 hr 10/07/24 10/07/24 17:49 20:54 WBC 11.6 H RBC 4.61 Hgb 13.1 Hct 40.2 MCV 87.2 MCH 28.4 MCHC 32.6 RDW Std Deviation 49.8 H RDW Coeff of Rodrigo 15.7 H Plt Count 259 MPV 10.4 Immature Gran % (Auto) 0.400 Neut % (Auto) 57.4 Lymph % (Auto) 26.5 [place] % (Auto) 14.0 H Eos % (Auto) 1.3 Baso % (Auto) 0.4 Absolute Neuts (auto) 6.6 Absolute Lymphs (auto) 3.07 Nucleated RBC % 0 Diff Path Review May foll Atypical Lymphocytes 2+ Plt Morphology Comment LARGE Polychromasia RARE Anisocytosis 1+ PT 15.4 H INR 1.2 APTT 28.2 D-Dimer Quant (PE/DVT) 0.27 Sodium 136 Potassium 3.8 Chloride 103 Carbon Dioxide 28.0 Anion Gap 5 BUN 37 H Creatinine 2.07 H Estim Creat Clear Calc 35.79 Est GFR (MDRD) Af Amer 40 L Est GFR (MDRD) Non-Af 33 L BUN/Creatinine Ratio 17.9 Glucose 161 H Calcium 8.7 Troponin I High Sens 8 80124 H* B-Natriuretic Peptide 103.3 H Radiography Diagnostic Testing: Clinical Impression(s) from Imaging Studies Chest X-Ray 10/07/24 18:40 IMPRESSION: No acute radiographic abnormalities. Electronically Signed: Leonardo Pretty MD at 19:48 EST , Discharge Plan Disposition Disposition: Acute Care Hospital [facility] Discharge Date/Time: 10/07/24 22:46
--- NOTE | 2024-10-07 18:40 | RAD_ITS ---
INDICATION: chest pain EXAMINATION/TECHNIQUE: X-RAY - XR Chest 2 Views COMPARISON: 07/15/2021. FINDINGS: The lungs are clear. Tortuous and calcified thoracic aorta. The heart is mildly enlarged. No pleural effusion or pneumothorax. Degenerative changes of the thoracic spine. RAD/Chest PA and Lateral IMPRESSION: No acute radiographic abnormalities. Electronically Signed: Leonardo Pretty MD at 19:48 EST ,
[2024-10-07 18:49] LABS: Absolute Lymphocyte Count 3.07 X10^3/uL (0.83-4.51); Absolute Neutrophil Count 6.6 X10^3/uL (2.0-7.7); Basophil# 0.05 X10^3/uL; Basophil% 0.4 % (0-1); Eosinophil# 0.15 X10^3/uL; Eosinophils% 1.3 % (0-5); Hematocrit 40.2 % (40-54); Hemoglobin 13.1 g/dL (13.0-16.5); Lymphocyte # 3.07 X10^3/ul (0.83-4.51); Lymphocyte % 26.5 % (19-41); Mean Corp Hgb Conc 32.6 g/dL (32-36); Mean Corpuscular Hgb 28.4 pg (27.0-32.0); Mean Corpuscular Volume 87.2 fL (80-94); Mean Platelet Vol. 10.4 fl (6.2-12.0); Monocyte# 1.62 X10^3/uL; NRBC Flagged by Analyzer 0 % (0-5); Neutrophil # 6.64 X10^3/uL (2.7-7.7); Neutrophil % 57.4 % (47-70); POSITIVE DIFFERENTIAL YES; Platelet Count 259 K/mm3 (150-450); RBC Distribution Width CV 15.7 % (11.6-14.6); RBC Distribution Width SD 49.8 fl (35.1-43.9); Red Blood Count 4.61 M/mm3 (4.6-6.2); White Blood Count 11.6 K/mm3 (4.4-11.0)
[2024-10-07 19:13] LABS: Anion Gap 5 (5-15); BUN 37 mg/dL (7-18); BUN/Creat Ratio 17.9 RATIO (10-20); Calcium,Total 8.7 mg/dL (8.5-10.1); Chloride 103 mmol/L (98-107); Creatinine, Serum 2.07 mg/dL (0.70-1.30); EST Glomerular Filtration Rate 33 mL/min (>60); Est Glom Filt Rate - Afr Amer 40 mL/min (>60); Estimated Creatinine Clearance 35.79 ml/min; Glucose 161 mg/dL (74-106); Potassium 3.8 mmol/L (3.5-5.1); Sodium Level 136 mmol/L (136-145); Troponin-I HS (w/2H Reflex) 8 pg/mL (3.0-78.0)
[2024-10-07 19:16] LABS: Differential Indicated SCAN CRITERIA MET
[2024-10-07 19:18] LABS: International Normalized Ratio 1.2; Prothrombin Time (Protime)PT. 15.4 SECONDS (11.7-14.9)
[2024-10-07 19:19] LABS: Partial Thromboplast Time 28.2 Seconds (24.1-36.2)
[2024-10-07 19:35] LABS: D-Dimer Quantitative (DVT/PE) 0.27 FEU/ug/m (0.27-0.49)
[2024-10-07 20:01] LABS: Atypical Lymphocyte 2+ %; Platelet Morphology LARGE
[2024-10-07 20:02] LABS: Anisocytosis 1+; Polychromasia RARE
[2024-10-07 20:22] LABS: BNP,B-Type NATRIURETIC PEPTIDE 103.3 pg/mL (0-100)
[2024-10-07 20:46] LABS: Reflex Troponin-HS? (from REC) Y
[2024-10-07] MEDS: Mag Hydrox/Al Hydrox/Simeth 30 ML UDC PO (20:49)
[2024-10-07] MEDS: Lidocaine 2% Viscous15 ML UDC 15 ML PO (20:49)
[2024-10-07 21:34] LABS: Troponin-I HS 11141 pg/mL (3.0-78.0)
--- NOTE | 2024-10-07 21:45 | EKG12_ITS ---
Test Reason : DYSRHYTHMIA Blood Pressure : */* mmHG Vent. Rate : 110 BPM Atrial Rate : * BPM P-R Int : * ms QRS Dur : 102 ms QT Int : 326 ms P-R-T Axes : * 24 66 degrees QTcB Int : 441 ms Atrial fibrillation with rapid ventricular response Nonspecific ST and T wave abnormality Abnormal ECG Confirmed by RODERICK GROSS, JACKIE ([id number]), department editor ALFONZO BUCKNER ([id number]) on 10/10/2024 2:23:29 PM Referred By: Barrett Waterman Confirmed By: JACKIE VAUGHN MD
--- NOTE | 2024-10-07 22:12 | PCM.HP.STD ---
[facility] - General General Date of Admission: 10/07/24 Date of Service: 10/07/24 Chief Complaint: Chest Pain. [facility] Narrative MAKAYLA SUÁREZ, is a 78 M with a past medical history of essential hypertension; on losartan and HCTZ, hyperlipidemia; on simvastatin, former tobacco abuse, obesity; with BMI of 37.9 this admission with BRANDON, chronic atrial fibrillation; on diltiazem and rivaroxaban, DM-2; of unknown control; on glimepiride, dapagliflozin and pioglitazone, history of renal cell carcinoma; s/p nephrectomy, CKD; stage III with a baseline creatinine of ~2 mg/dL, BPH; on doxazosin, history of COVID-19, history of rotator cuff arthropathy and OA who presents to [facility] ER complaining of chest pain. Mr. Suárez reports his symptoms began approximately 5:00 PM when he was sitting down to dinner when he had the abrupt-onset of chest pain that was substernal, aching, nonradiating and severe 07/25 with pain made better after EMS gave four ECASA to ~2/10. He also admits to associated SOB that coincided with the onset of his symptoms but he denies SOB at this time. He admits to occasional non productive cough but he denies associated diaphoresis, fever, chills, nausea, vomiting, abdominal pain, similar previous episodes or known history of WI but he does admit to heart racing. He has an echocardiogram in 2013 that revealed a LVEF ~65%. In the ER he was noted to have an initial normal troponin of 8 pg/mL followed by a second highly elevated troponin of 11,141 pg/mL consistent with NSTEMI complicated by Atrial Fibrillation with RVR and he was then admitted to the PCU for ongoing care for a stay that is expected to extend beyond 2 midnights. [facility] Medical History Diabetes Kidney disease Former smoker Sleep apnea HLD (hyperlipidemia) History of renal cell carcinoma A-fib Home Medications ?Medication ?Instructions ?Recorded ?Last Taken ?Type cyanocobalamin (vitamin B-12) 500 1,000 mcg PO DAILY@0800 vitamin 06/30/14 06/30/14 History mcg tablet doxazosin 4 mg tablet 8 mg PO QHS prostate 06/30/14 06/29/14 22:00 History glimepiride 2 mg tablet 4 mg PO DAILY diabetes 06/30/14 06/30/14 History simvastatin 20 mg tablet 20 mg PO QHS cholesterol 06/30/14 Unknown History vitamin E (dl, acetate) 180 mg 400 units PO DAILY vitamin 06/30/14 06/30/14 History (400 unit) capsule pioglitazone 15 mg tablet 15 mg PO DAILY diabetes 07/15/21 Unknown History dexamethasone 6 mg tablet 6 mg PO DAILY #7 tabs 07/19/21 Unknown Rx (Decadron) rivaroxaban 15 mg tablet (Xarelto) 15 mg PO DAILY 08/27/22 Unknown History dapagliflozin propanediol 10 mg 10 mg PO DAILY 10/07/24 Unknown History tablet dapagliflozin propanediol 10 mg 10 mg PO DAILY . 10/07/24 10/07/24 History tablet (Farxiga) diltiazem HCl 180 mg capsule,24 180 mg PO Q24H Heart Rate 10/07/24 10/07/24 History hr,extended release hydrochlorothiazide 12.5 mg tablet 12.5 mg PO DAILY 10/07/24 Unknown History losartan 100 mg tablet 100 mg PO DAILY 10/07/24 Unknown History Allergy/AdvReac Type Severity Reaction Status Date / Time No Known Allergies Allergy Verified 10/07/24 17:42 Surgical History History of nephrectomy Social History Smoking Status: Former smoker substance use type: does not use ROS ROS Narrative Review of Systems: Constitutional: Patient denies fever or chills. Eyes: Patient denies changes in vision or discharge from eyes. ENT: Patient denies runny nose, sore throat or ear pain. Resp: Patient admits to transient SOB as per HPI but he denies cough. CV: Patient admits to chest pain with heart racing but he denies palpitations. GI: Patient denies abdominal pain, nausea, vomiting, diarrhea or constipation. : Patient denies dysuria or hematuria. MSK: Patient denies arthralgias or myalgias. Skin: Patient denies rash, abscess or jaundice. Psych: Patient denies symptoms of uncontrolled depression or anxiety. Neuro: Patient denies headache, paresthesias or focal neurologic deficits. Allergy: Patient denies lip swelling, tongue swelling or urticaria. Hematology: Patient denies recent bleeding. Endocrinology: Patient denies polyuria, polydipsia or polyphagia. 14 point ROS otherwise negative except for positives noted above in HPI. Vital Signs Vital Signs Vital Signs: 10/07/24 17:43 10/07/24 17:43 10/07/24 18:30 Temperature 98.4 F Temperature Source Oral Pulse Rate 105 H Respiratory Rate 30 H Respiratory Effort Normal Non-Labored Blood Pressure 156/94 H 147/98 H Blood Pressure Mean 114 114 Pulse Ox 97 Oxygen Delivery Method Room Air 10/07/24 18:33 10/07/24 18:48 10/07/24 19:00 Temperature Temperature Source Pulse Rate 110 H 131 H 111 H Respiratory Rate 25 H 21 H 19 H Respiratory Effort Blood Pressure 148/86 H Blood Pressure Mean 102 Pulse Ox 96 95 95 Oxygen Delivery Method 10/07/24 19:15 10/07/24 19:32 10/07/24 19:45 Temperature Temperature Source Pulse Rate 100 Respiratory Rate 25 H Respiratory Effort Blood Pressure Blood Pressure Mean Pulse Ox 95 96 96 Oxygen Delivery Method 10/07/24 20:00 10/07/24 20:15 10/07/24 20:30 Temperature Temperature Source Pulse Rate 116 H 120 H 129 H Respiratory Rate 21 H 27 H 23 H Respiratory Effort Blood Pressure Blood Pressure Mean Pulse Ox 95 96 96 Oxygen Delivery Method 10/07/24 20:32 10/07/24 20:45 10/07/24 21:00 Temperature Temperature Source Pulse Rate 106 H 112 H 129 H Respiratory Rate 25 H 22 H 26 H Respiratory Effort Blood Pressure 135/81 H 148/84 H Blood Pressure Mean 95 103 Pulse Ox 96 95 96 Oxygen Delivery Method Weight Weight: 255 lb 11.779 oz Body Mass Index (BMI) 37.8 Physical Exam Const alert, oriented x3 and no apparent distress Constitutional Narrative: Obese. General Appearance: cooperative HEENT normocephalic, head/scalp atraumatic, hearing grossly normal bilaterally and moist oral mucous membranes Eyes PERRL and EOMs intact bilaterally Neck no lymphadenopathy and supple Resp normal respiratory effort, no retractions, no use of accessory muscles and clear to auscultation bilaterally Cardio Cardio Narrative: Irregularly irregular @ ~120 bpm. GI normal to inspection, nondistended, normoactive bowel sounds, soft to palpation, non-tender and non-distended GI Narrative: Obese. Extremity normal to inspection and full ROM Skin Skin Narrative: Patient has no evidence of rash, abscess or jaundice. Neuro oriented x3, CN's II-XII intact bilaterally, moves all extremities and no focal motor deficits Sensorium / Orientation: awake, alert, oriented to person, oriented to place and oriented to time Speech: speech normal Psych affect normal Results Medical Records Data Attestation: I reviewed the patient's medical records Lab / Micro Data Attestation: I reviewed the patient's lab results. 10/08/24 04:17 10/08/24 04:17 Labs: Laboratory Results - last 24 hr 10/07/24 17:49: WBC 11.6 H, RBC 4.61, Hgb 13.1, Hct 40.2, MCV 87.2, MCH 28.4, MCHC 32.6, RDW Std Deviation 49.8 H, RDW Coeff of Rodrigo 15.7 H, Plt Count 259, MPV 10.4, Immature Gran % (Auto) 0.400, Neut % (Auto) 57.4, Lymph % (Auto) 26.5, [place] % (Auto) 14.0 H, Eos % (Auto) 1.3, Baso % (Auto) 0.4, Absolute Neuts (auto) 6.6, Absolute Lymphs (auto) 3.07, Nucleated RBC % 0, Diff Path Review May foll, Atypical Lymphocytes 2+, Plt Morphology Comment LARGE, Polychromasia RARE, Anisocytosis 1+, PT 15.4 H, INR 1.2, APTT 28.2, D-Dimer Quant (PE/DVT) 0.27, Sodium 136, Potassium 3.8, Chloride 103, Carbon Dioxide 28.0, Anion Gap 5, BUN 37 H, Creatinine 2.07 H, Estim Creat Clear Calc 35.79, Est GFR (MDRD) Af Amer 40 L, Est GFR (MDRD) Non-Af 33 L, BUN/Creatinine Ratio 17.9, Glucose 161 H, Calcium 8.7, Troponin I High Sens 8, B-Natriuretic Peptide 103.3 H 10/07/24 20:54: Troponin I High Sens 45363 H* Imaging Radiology Impression Chest X-Ray 10/07/24 18:40 IMPRESSION: No acute radiographic abnormalities. Electronically Signed: Leonardo Pretty MD at 19:48 EST , Assessment & Plan Assessment/Plan (1) NSTEMI, initial episode of care: (2) Atrial fibrillation with RVR: (3) Anticoagulated: (4) HTN (hypertension): QUALIFIERS: Hypertension type: unspecified Qualified Code(s): I10 - Essential (primary) hypertension (5) Dyslipidemia: (6) DM2 (diabetes mellitus, type 2): QUALIFIERS: Diabetes mellitus prison insulin use: without prison use Diabetes mellitus complication status: with other specified complication Qualified Code(s): E11.69 - Type 2 diabetes mellitus with other specified complication (7) Obesity (BMI 30-39.9): PLAN: Plan 1. NSTEMI; evidenced by highly elevated 2nd troponin of 11,141 pg/mL present on admission - Admit to ICU. Continue ECASA, IV NTG and IV Heparin begun in ER at request of battery plate remover. Increase dose of statin. Cardiology also informed ER physician not to give Plavix so it was withheld. Serialize troponin. Check echocardiogram to evaluate LVEF. Give IV Morphine prn for severe (level 6-10/10) pain. Finally, ER physician spoke with battery plate remover on-call with formal consultation pending in AM for [facility] with help appreciated in advance. 2. Atrial Fibrillation with RVR complicating #1 - Give IV Cardizem and titrate to keep HR < 100 bpm. Patient on IV Heparin for #1 so rivaroxaban will be held until further notice. 3. Obesity; with BMI of 37.9 this admission with BRANDON compounding #1 & #2 - Weight loss will be recommended. Check TSH. Continue nocturnal CPAP as before. This complicates his case and may hamper recovery. 4. Essential hypertension; on losartan and HCTZ - Continue home regimen plus give prn IV hydralazine for systolic blood pressure > 160 mmHg. 5. Hyperlipidemia; on simvastatin - Increase dose of simvastatin and check Lipid Profile in light of #1. 6. DM-2; of unknown control; on glimepiride, dapagliflozin and pioglitazone - Keep NPO except for medications, sips and ice chips. FSBS q. 6 hours plus lowest intensity SSI. Check HgbA1c to objectively assess quality of diabetic control. 7. Former tobacco abuse - Noted. 8. History of renal cell carcinoma; s/p nephrectomy - Noted. 9. CKD; stage III with a baseline creatinine of ~2 mg/dL - Stable. Check renal indices daily to ensure continued stability. 10. BPH; on doxazosin - Resume doxazosin as previous. 11. History of COVID-19 - Noted. 12. History of rotator cuff arthropathy - Noted. 13. OA - Give Tylenol prn for [id number] (level 1-5/10) pain or fever. 14. DVT prophylaxis - Patient already on IV Heparin for #1. Total time: Approximately (but not less than) 75 minutes. Charges/Coding Visit Charges Inpatient E&M: 06032 Init Hosp L3
[2024-10-07] MEDS: HEPARIN/D5w 25,000 UNITS 25,000 UNITS/250 ML IV.SOLN. 10 UNITS CONT INF (22:13)
[2024-10-07] MEDS: Nitroglycerin Infusion 250 ML 3 MG CONT INF (22:14)
--- NOTE | 2024-10-07 22:33 | EKG12_ITS ---
Test Reason : NSTEMI Blood Pressure : */* mmHG Vent. Rate : 111 BPM Atrial Rate : * BPM P-R Int : * ms QRS Dur : 96 ms QT Int : 360 ms P-R-T Axes : * 10 126 degrees QTcB Int : 489 ms Atrial fibrillation with rapid ventricular response Nonspecific T wave abnormality Abnormal ECG When compared with ECG of 07-Oct-2024 21:39, MANUAL COMPARISON REQUIRED DATA IS UNCONFIRMED Confirmed by RODERICK GROSS, JACKIE ([id number]), assistant film editor ALFONZO BUCKNER ([id number]) on 10/10/2024 2:27:22 PM Referred By: Barrett Waterman Confirmed By: JACKIE VAUGHN MD
--- NOTE | 2024-10-07 22:57 | ECHOCS_ITS ---
Reason For Study: Chest pain Procedure This was a 2D Doppler, Color Flow transthoracic echocardiogram. The study was technically difficult. Exam performed portable in ICU/CCU. Left Ventricle Normal LV size. The left ventricular ejection fraction is 50 %. Mild segmental systolic dysfunction (see wall motion). Mid-Lateral : Severely Hypokinetic. Mid-Inferior: Hypokinetic. Lateral-Basal: Hypokinetic. Infero-Basal: Normal. Basal inferoseptal: Normal. Right Ventricle Normal RV size. Normal systolic function. Atria Normal left atrium. Normal right atrium. Mitral Valve Mitral valve not well visualized. Tricuspid Valve Normal tricuspid valve. Aortic Valve The aortic valve is not well visualized. Great Vessels Normal aortic root. The pulmonary artery is normal size. Inferior vena cava collapse with sniff. Pericardium/Pleural No pericardial effusion. Medication Diluted definity 2.0ml given slow IV push to enhance endocardial definition. MMode/2D Measurements & Calculations LVIDd: 4.8 cm IVSd: 1.4 cm Ao root diam: 3.9 cm LVIDs: 3.5 cm LVPWd: 1.2 cm RVDd: 3.8 cm FS: 27.2 % LAV(MOD-bp): 76.5 ml LA A4 area: 24.2 cm2 LA dimension(2D): 4.1 cm LAV(MOD-bp) Indexed: 34.0 ml/m2 LAV(MOD-sp2): 74.4 ml LAV(MOD-sp4): 76.4 ml RA A4 area: 17.3 cm2 Doppler Measurements & Calculations MV E max danyel: 76.2 cm/sec Ao V2 max: 119.6 cm/sec LV V1 max: 94.1 cm/sec Ao max P.7 mmHg LV V1 max P.5 mmHg PA V2 max: 88.8 cm/sec ECHO/Echo Complete W/ Contrast Interpretation Summary The left ventricular ejection fraction is 50 %. Normal LV size. Mild segmental systolic dysfunction (see wall motion). The study was technically difficult. Contrast injection was performed. Ordering Physician: Barrett Waterman Referring Physician: Barrett Waterman Performed By: Mya Burns RDCS
[2024-10-07] MEDS: Diltiazem 125 MG in Dextrose 5%-Water (100mL Bag) 100 ML IV (23:30)
[2024-10-08] VITALS (31 sets, daily range): BP systolic 89–131; BP diastolic 52–83; PULSE 88–133; RESP 15–30; TEMP 36.3–37; O2SAT 91–96
[2024-10-08 00:19] LABS: Bedside Glucose 171 mg/dL (74-106)
[2024-10-08 03:00] LABS: Troponin-I HS 83974 pg/mL (3.0-78.0)
[2024-10-08] MEDS: 0.9% Saline Lock 10 ML Syringe IV (04:22)
[2024-10-08 04:28] LABS: Hematocrit 38.8 % (40-54); Hemoglobin 12.8 g/dL (13.0-16.5); Mean Corpuscular Hgb 28.6 pg (27.0-32.0); Mean Corpuscular Volume 86.6 fL (80-94); Mean Platelet Vol. 10.2 fl (6.2-12.0); Platelet Count 234 K/mm3 (150-450); RBC Distribution Width CV 15.4 % (11.6-14.6); RBC Distribution Width SD 48.7 fl (35.1-43.9); Red Blood Count 4.48 M/mm3 (4.6-6.2); White Blood Count 11.8 K/mm3 (4.4-11.0)
[2024-10-08 04:38] LABS: Partial Thromboplast Time 36.8 Seconds (24.1-36.2)
[2024-10-08 04:52] LABS: ALB/GLOB Ratio 0.7 RATIO (0.9-2.4); AST(SGOT) 233 U/L (15-37); Alanine Aminotransfer ALT/SGPT 38 U/L (16-61); Albumin, Serum 2.9 g/dL (3.2-5.0); Alkaline Phosphatase 61 U/L (45-117); Anion Gap 7 (5-15); BUN 32 mg/dL (7-18); BUN/Creat Ratio 16.3 RATIO (10-20); Calcium,Total 8.5 mg/dL (8.5-10.1); Chloride 103 mmol/L (98-107); Cholesterol 129 mg/dL (200); Creatinine, Serum 1.96 mg/dL (0.70-1.30); EST Glomerular Filtration Rate 35 mL/min (>60); Est Glom Filt Rate - Afr Amer 43 mL/min (>60); Estimated Creatinine Clearance 38.05 ml/min; Glucose 194 mg/dL (74-106); High Density Lipoprotein 62 mg/dL; Potassium 3.8 mmol/L (3.5-5.1); Protein, Total 6.9 g/dL (6.4-8.2); Sodium Level 136 mmol/L (136-145); Triglycerides 58 mg/dL; Very Low Density Lipoprotein 12 mg/dL (5-40)
[2024-10-08] MEDS: Heparin Injection (Vial) 5,000 UNIT/ML VIAL IV (04:56)
[2024-10-08] MEDS: Diltiazem 125 MG in Dextrose 5%-Water (100mL Bag) 100 ML 15 MG IV ×2 (07:59→16:25)
--- NOTE | 2024-10-08 08:22 | PCM.CONS.C ---
Assessment & Plan Assessment/Plan (1) NSTEMI, initial episode of care: PLAN: He presents with a non-ST elevation myocardial infarction. I suspect he has inferior wall pathology. At this point in time my recommendation will be to schedule him for cardiac catheterization within the next 12 hours. There is benefits alternatives have been explained to him he understands and agrees to proceed. His heparin will be discontinued at this time as he is on Xarelto previously. Addendum: 12:44 PM Cardiac catheterization demonstrated normal left main coronary artery. Left anterior descending artery with high-grade 95% proximal stenosis with poststenotic aneurysmal dilatation and mild diffuse disease distal disease Left circumflex artery nondominant with focal 95% mid segment stenosis Dominant right coronary artery with mild diffuse disease Ejection fraction is noted to be borderline with 50% stenosis and lateral hypokinesis Based on the above angiographic findings after discussion with the network architect manager due to the aneurysmal formation it may be prudent to obtain a surgical opinion or transfer to a tertiary care facility. (2) HTN (hypertension): QUALIFIERS: Hypertension type: unspecified Qualified Code(s): I10 - Essential (primary) hypertension PLAN: His blood pressure medication can be optimized and his losartan will be continued, and he will be started on amlodipine and beta-charley combination. (3) A-fib: PLAN: He does have a history of atrial fibrillation. I would like to optimize his heart rate control utilizing a beta-charley and he will be anticoagulated with the Xarelto. Alternatively he may be switched to Eliquis due to his renal dysfunction. (4) CHF (congestive heart failure), NYHA class II: PLAN: He does appear to have congestive heart failure [employer] class II. An echocardiogram is being performed to assess ventricular function. It is likely that some of his edema is secondary to his diltiazem. This to be further elucidated after his echocardiogram has been performed. (5) Dyslipidemia: PLAN: He appears to have stable lipid panel and the plan to be to continue the current medical therapy. I have explained the above to him and his daughter they understand and agree to proceed. HPI Consult Data Date of Consult: 10/08/24 HPI Narrative HPI Narrative: MAKAYLA RODRIGUEZ, is a 78 M who presents to the emergency room with back discomfort. He says that he was watching TV getting ready for dinner when this started. He has past medical history significant for hypertension, hyperlipidemia, obesity and chronic atrial fibrillation on anticoagulation. He also has diabetes mellitus and a history of renal cell carcinoma status post nephrectomy with chronic renal insufficiency. In the emergency room he admitted to a nonproductive cough but denied fever or chills nausea or diaphoresis or abdominal discomfort. His EKG demonstrated atrial fibrillation with subtle ST changes and initial normal troponin. Second troponin was noted to be highly elevated. He was admitted to intensive care unit started on heparin intravenous nitroglycerin as well as intravenous diltiazem for his atrial fibrillation. He is fairly comfortable but still has mild back discomfort. He was previously being followed up by a physician in [place]. [facility] Medical History (Updated 10/08/24 @ 08:[address] Donis Sims MD) Diabetes Kidney disease Former smoker Sleep apnea HLD (hyperlipidemia) History of renal cell carcinoma A-fib Home Medications ?Medication ?Instructions ?Recorded ?Last Taken ?Type cyanocobalamin (vitamin B-12) 500 1,000 mcg PO DAILY@0800 vitamin 06/30/14 06/30/14 History mcg tablet doxazosin 4 mg tablet 4 mg PO QHS prostate 06/30/14 06/29/14 22:00 History glimepiride 2 mg tablet 1 mg PO BIDAC diabetes 06/30/14 06/30/14 History simvastatin 20 mg tablet 20 mg PO .COMPLEX cholesterol 06/30/14 Unknown History vitamin E (dl, acetate) 180 mg 400 units PO DAILY vitamin 06/30/14 06/30/14 History (400 unit) capsule pioglitazone 15 mg tablet 15 mg PO DAILY diabetes 07/15/21 Unknown History rivaroxaban 15 mg tablet (Xarelto) 15 mg PO DAILY 08/27/22 Unknown History dapagliflozin propanediol 10 mg 10 mg PO DAILY . 10/07/24 10/07/24 History tablet (Farxiga) diltiazem HCl 180 mg capsule,24 360 mg PO Q24H Heart Rate 10/07/24 10/07/24 History hr,extended release hydrochlorothiazide 12.5 mg tablet 12.5 mg PO DAILY 10/07/24 Unknown History losartan 100 mg tablet 100 mg PO DAILY 10/07/24 Unknown History Allergy/AdvReac Type Severity Reaction Status Date / Time No Known Allergies Allergy Verified 10/07/24 17:42 Surgical History History of nephrectomy Social History Smoking Status: Former smoker substance use type: does not use ROS Constitutional Constitutional: Denies fever(s) or weight loss Eyes Eyes: Reports systems reviewed and no addt'l complaints, except as documented ENT HEENT: Reports systems reviewed and no addt'l complaints, except as documented Cardiovascular Cardiovascular: Reports chest pain at rest; Denies chest pain with activity, dyspnea at rest, dyspnea on exertion, edema, palpitations or paroxysmal nocturnal dyspnea Respiratory/Chest Respiratory/Chest: Denies dyspnea on exertion, productive cough, shortness of breath at rest or shortness of breath with exertion Gastrointestinal Gastrointestinal: Denies change in bowel habits, nausea, vomiting or weight changes Genitourinary Genitourinary: Denies difficulty urinating Musculoskeletal Musculoskeletal: Denies joint stiffness or muscle weakness Integumentary Integumentary: Denies lesions Neurologic Neurologic: Denies dizziness or syncope Psychiatric Psychiatric: Denies anxiety Endocrine Endocrinology: Denies excessive sweating or fatigue Hematologic/Lymphatic Hematologic/Lymphatic: Denies anemia Allergic/Immunologic Allergic/Immunologic: Denies seasonal rhinorrhea Physical Exam Const alert, oriented x3 and no apparent distress General Appearance: cooperative HEENT hearing grossly normal bilaterally Head and Scalp: atraumatic Eyes EOMs intact bilaterally Neck General: normal visual inspection Chest inspection of chest normal and palpation of chest normal Resp normal respiratory effort Auscultation: crackles Cardio S1 normal heart sound and S2 normal heart sound Jugular Venous Distention: JVD Rhythm: abnormal rhythm irregularly irregular GI normal to inspection, nondistended, normoactive bowel sounds Extremity normal capillary refill General Extremity: edema Peripheral Pulses: Yes pulses 2+ throughout and femoral pulses present Skin no rashes or lesions noted Neuro oriented x3 and CN's II-XII intact bilaterally Psych Appearance: grossly normal and appropriate Risk Stratification Risk Stratification Applicable: Yes Age >/= 65: Yes >/= 3 CAD Risk Factors (HTN, HLD, DM, family hx of CAD, or current smoker): Yes Aspirin Use in the Past 7 Days: No Severe Angina (>/= episodes in 24 hours): Yes EKG ST Changes >/= 0.5mm: No Positive Cardiac Marker: Yes GABY Risk Stratification Score: 4 GABY % Risk: 20% Risk Objective Data Vital Signs: Vital Signs Temp Pulse Resp BP Pulse Ox O2 Del Method 98.2 F 106 H 18 121/60 H 92 Room Air 10/08/24 00:00 10/08/24 07:00 10/08/24 07:00 10/08/24 07:00 10/08/24 07:00 10/08/24 07:46 Oxygen Delivery Method Room Air Weight: 251 lb 5.231 oz Body Mass Index (BMI) 37.0 Intake & Output: Intake and Output for Last 24 Hours 10/06/24 10/07/24 10/08/24 23:59 23:59 23:59 Intake Total 2.3 / 13.8 316.98 / 316.98 Output Total 700 / 700 Balance 2.3 / 13.8 -383.02 / -383.02 Lab / Micro Data 10/08/24 04:17 10/08/24 04:17 Labs: Laboratory Results - last 24 hr 10/07/24 17:49: WBC 11.6 H, RBC 4.61, Hgb 13.1, Hct 40.2, MCV 87.2, MCH 28.4, MCHC 32.6, RDW Std Deviation 49.8 H, RDW Coeff of Rodrigo 15.7 H, Plt Count 259, MPV 10.4, Immature Gran % (Auto) 0.400, Neut % (Auto) 57.4, Lymph % (Auto) 26.5, Marion % (Auto) 14.0 H, Eos % (Auto) 1.3, Baso % (Auto) 0.4, Absolute Neuts (auto) 6.6, Absolute Lymphs (auto) 3.07, Nucleated RBC % 0, Diff Path Review May foll, Atypical Lymphocytes 2+, Plt Morphology Comment LARGE, Polychromasia RARE, Anisocytosis 1+, PT 15.4 H, INR 1.2, APTT 28.2, D-Dimer Quant (PE/DVT) 0.27, Sodium 136, Potassium 3.8, Chloride 103, Carbon Dioxide 28.0, Anion Gap 5, BUN 37 H, Creatinine 2.07 H, Estim Creat Clear Calc 35.79, Est GFR (MDRD) Af Amer 40 L, Est GFR (MDRD) Non-Af 33 L, BUN/Creatinine Ratio 17.9, Glucose 161 H, Calcium 8.7, Troponin I High Sens 8, B-Natriuretic Peptide 103.3 H 10/07/24 20:54: Troponin I High Sens [id number] H* 10/08/24 00:00: POC Glucose 171 H 10/08/24 02:00: Troponin I High Sens [id number] H* 10/08/24 04:17: WBC 11.8 H, RBC 4.48 L, Hgb 12.8 L, Hct 38.8 L, MCV 86.6, MCH 28.6, MCHC 33.0, RDW Std Deviation 48.7 H, RDW Coeff of Rodrigo 15.4 H, Plt Count 234, MPV 10.2, APTT 36.8 H, Sodium 136, Potassium 3.8, Chloride 103, Carbon Dioxide 26.0, Anion Gap 7, BUN 32 H, Creatinine 1.96 H, Estim Creat Clear Calc 38.05, Est GFR (MDRD) Af Amer 43 L, Est GFR (MDRD) Non-Af 35 L, BUN/Creatinine Ratio 16.3, Glucose 194 H, Calcium 8.5, Total Bilirubin 0.80, AST 233 H, ALT 38, Alkaline Phosphatase 61, Total Protein 6.9, Albumin 2.9 L, Globulin 4.0, Albumin/Globulin Ratio 0.7 L, Triglycerides 58, Cholesterol 129, LDL Cholesterol 55, VLDL Cholesterol 12, HDL Cholesterol 62, TSH 1.490 Cardiology Labs/Tests 10/07/24 17:49: WBC 11.6 H, RBC 4.61, Hgb 13.1, Hct 40.2, MCV 87.2, MCH 28.4, MCHC 32.6, Plt Count 259, MPV 10.4, Immature Gran % (Auto) 0.400, Neut % (Auto) 57.4, Lymph % (Auto) 26.5, Marion % (Auto) 14.0 H, Eos % (Auto) 1.3, Baso % (Auto) 0.4, Absolute Neuts (auto) 6.6, Nucleated RBC % 0, PT 15.4 H, INR 1.2, APTT 28.2, D-Dimer Quant (PE/DVT) 0.27, Sodium 136, Potassium 3.8, Chloride 103, Carbon Dioxide 28.0, Anion Gap 5, BUN 37 H, Creatinine 2.07 H, Est GFR (MDRD) Af Amer 40 L, Est GFR (MDRD) Non-Af 33 L, BUN/Creatinine Ratio 17.9, Glucose 161 H, Calcium 8.7, B-Natriuretic Peptide 103.3 H 10/08/24 04:17: WBC 11.8 H, RBC 4.48 L, Hgb 12.8 L, Hct 38.8 L, MCV 86.6, MCH 28.6, MCHC 33.0, Plt Count 234, MPV 10.2, APTT 36.8 H, Sodium 136, Potassium 3.8, Chloride 103, Carbon Dioxide 26.0, Anion Gap 7, BUN 32 H, Creatinine 1.96 H, Est GFR (MDRD) Af Amer 43 L, Est GFR (MDRD) Non-Af 35 L, BUN/Creatinine Ratio 16.3, Glucose 194 H, Calcium 8.5, Total Bilirubin 0.80, Triglycerides 58, Cholesterol 129, LDL Cholesterol 55, VLDL Cholesterol 12, HDL Cholesterol 62 Rhythm: EKG: ECHO: Stress Test: Cardiac Cath: PCI: CT Surgery: Holter monitor: EPS: PPM: CXR: Chest CT Scan: Radiography Diagnostic Testing: Radiology Impression Chest X-Ray 10/07/24 18:40 IMPRESSION: No acute radiographic abnormalities. Electronically Signed: Leonardo Pretty MD at 19:48 EST ,
[2024-10-08] MEDS: Amiodarone 150 MG in Dextrose 5%-Water (100mL Bag) 100 ML 600 MG IV BOLUS (08:54)
--- NOTE | 2024-10-08 09:21 | CASEMGMT ---
TERESA SHERIDAN Assessment Face to Face with patient for initial transition planning/care coordination assessment. TERESA SHERIDAN introduced self and role at [facility], pt voices understanding. Pt is A&Ox4 and is resting comfortably in bed and is calm. Care providers, pharmacy, and demographics verified. Admitting dx: NSTEMI LACE Strata: 2 PCP: Simon Specialists: Nickolas Luna (Cardio), Jose (Endo), Ravi (Nephro) Preferred [facility]acy: [facility] Insurance: [facility] A/B, AARP Prescription Benefit: Yes, states he has [facility] Part D LNOK: Alejandra (), Armin (Son) Living Arrangements: Pt lives with his in a split level home with 5 to 7 steps to the upper and lower portions with one small step to enter the home ADLs/IADLs: Ind Transportation: Self, DME: functioning [employer] with sufficient supplies. FWW but does not need to use. BP Monitor. Pulse ox. HHC/SNF: Denies History or needs Pt?s goal: Return home Plan: home no needs once medically ready, follow for potential new blood thinning Rx. 6-Click is 24. Pt states that he takes Xarelto at home already. Pt denies the need for HH, OP Tx, CCN, or SNF. Pt states that he feels safe returning home with his once he is medically ready and denies further questions or concerns at this time. Karissa South RN, CM
[2024-10-08] MEDS: Aspirin E.C. 81 MG Tablet PO (09:40)
[2024-10-08] MEDS: Losartan Potassium 100 MG Tablet PO (09:40)
[2024-10-08] MEDS: Acetaminophen 325 MG Tablet 650 MG PO ×3 (09:42→23:40)
[2024-10-08 11:17] LABS: Pathologist Review Reviewed
[2024-10-08 11:49] LABS: Bedside Glucose 193 mg/dL (74-106)
--- NOTE | 2024-10-08 12:57 | CL.D_ITS ---
Patient Name: MAKAYLA RODRIGUEZ Study Date: 10/08/2024 Performing: Donis Sims MD Ht: 69 inches 175.26 cm : 1945 Wt: 251.7 lbs 114 kg Age: 78 Gender: male BSA: 2.28 PROCEDURE(S) PERFORMED [id number]-([id number])[facility] CLINICAL PROFILE AND INDICATIONS Indications: Suspected CAD Heart Failure: None Stress/Imaging Stress/Image Study Performed: No Angina Classification Anginal Classification w/in 2 Weeks: CCS II CAD Presentations: Non-STEMI. Symptom onset Date/Time: 10/08/24 Time Not Available CONCLUSIONS Severe calcified proximal LAD and mid segment circumflex artery disease with hypokinesis of the lateral wall. Aneurysmal formation noted in the mid LAD lesion. RECOMMENDATIONS Will consider a surgical opinion or high risk PCI. Will transfer to a tertiary care facility. DESCRIPTION OF PROCEDURE The patient arrived to the procedure lab. The risks and benefits of the procedure as well as a full description of our services here and current unavailability of surgical backup were fully explained to the patient and/or their significant other prior to the catheterization. The Timeout was completed, verifying the correct patient and procedure. The patient's procedural site was prepped and draped in the usual fashion. Local anesthetic was given subcutaneously to right radial region with Lidocaine 2%. Using a modified Seldinger technique, arterial access was obtained via the right radial artery, a 6Fr sheath was inserted. Left Coronary Artery selective angiography was performed in multiple views using a 5 Fr. 4.0 Washta catheter. Right Coronary Artery selective angiography was then performed in multiple views using a 5 Fr. 4.0 Washta catheter.The arterial sheath was pulled and a TR Band was applied for hemostasis 10 ml of air CORONARY ANGIOGRAPHY DOMINANCE: Right Dominant LEFT HEART ASSESSMENT Left Ventricular Ejection Fraction: by Echo 50 % Lateral Hypokinesis - Moderate Depressed Left Ventricular systolic function LEFT MAIN: Angiographically normal LEFT ANTERIOR DESCENDING ARTERY: Proximal high-grade 99% stenosis with a poststenotic aneurysmal area with calcification in the mid to distal vessel has mild to moderate diffuse disease. PROX LAD: Moderate calcification CIRCUMFLEX ARTERY: Mild calcification MID CIRC: 95 % Stenosis RIGHT CORONARY ARTERY: Mild luminal irregularities less than 30% COMPLICATIONS No Complications PROCEDURE MEDICATIONS Fentanyl 25 mcg IV Versed 0.5 mg IV Versed 0.5 mg IV Oxygen: 2 L/min via nasal cannula Cardizem 125mg / 100ml D5W @ 15 mg/hr maintained from floor 10/08/2024 11:54:06 Nitro glycerin 25mg / 250ml D5W @ 12 mcg/min maintained from floor 10/08/2024 11:54:29 Nitro glycerin 25mg / 250ml D5W @ 5 mcg/min (decreased rate) 10/08/2024 12:06:07 SUMMARY OF HEMODYNAMIC DATA Time AIR REST ECG 11:51:12 AO 99/60 (78) SA 12:13:22 Art 139/55 (76) 12:23:37 Signed By Donis Sims MD On 10/08/2024 12:56:45 Donis Sims MD
[2024-10-08] MEDS: Nitroglycerin Oint 1 INCH PACKET TD (15:40)
--- NOTE | 2024-10-08 15:46 | PCM.DC.SUM ---
Providers Date of Admission: 10/07/24 Date of Discharge: 10/08/24 Primary Care Physician: Dr. Albert Montes MD Consultations 10/07/24 22:57 Consult: Cardiology Routine Consulting Provider: Donis Sims Reason for Consult: NSTEMI EMERGENT Consult: No MD Notified: Yes Date Notified: 10/07/24 Time Notified: 22:29 Method of Notification: ED Physician Initiated Reason For Visit: NSTEMI Diagnosis Discharge Diagnosis (1) NSTEMI, initial episode of care: Status: Acute Code(s): I21.4 - Non-ST elevation (NSTEMI) myocardial infarction (2) HTN (hypertension): Status: Chronic Code(s): I10 - Essential (primary) hypertension Qualifiers: Hypertension type: unspecified Qualified Code(s): I10 - Essential (primary) hypertension (3) A-fib: Status: Acute Code(s): I48.91 - Unspecified atrial fibrillation (4) CHF (congestive heart failure), NYHA class II: Status: Acute Code(s): I50.9 - Heart failure, unspecified (5) Dyslipidemia: Status: Chronic Code(s): E78.5 - Hyperlipidemia, unspecified Plan 1. Non-STEMI #2 occlusive coronary artery disease #3 type 2 diabetes #4 hyperlipidemia #5 atrial fibrillation #6 chronic diastolic congestive heart failure Medications at Discharge Home Medications cyanocobalamin (vitamin B-12) 500 mcg tablet 1,000 mcg PO DAILY@0800 vitamin 06/30/14 doxazosin 4 mg tablet 4 mg PO QHS prostate 06/30/14 glimepiride 2 mg tablet 1 mg PO BIDAC diabetes 06/30/14 simvastatin 20 mg tablet 20 mg PO .COMPLEX cholesterol 06/30/14 vitamin E (dl, acetate) 180 mg (400 unit) capsule 400 units PO DAILY vitamin 06/30/14 pioglitazone 15 mg tablet 15 mg PO DAILY diabetes 07/15/21 rivaroxaban 15 mg tablet (Xarelto) 15 mg PO DAILY 08/27/22 dapagliflozin propanediol 10 mg tablet (Farxiga) 10 mg PO DAILY . 10/07/24 diltiazem HCl 180 mg capsule,24 hr,extended release 360 mg PO Q24H Heart Rate 10/07/24 hydrochlorothiazide 12.5 mg tablet 12.5 mg PO DAILY 10/07/24 losartan 100 mg tablet 100 mg PO DAILY 10/07/24 Hospital Course Operations None Procedures Cardiac catheterization Summary of Care Provided Minutes Spent on Discharge: 31 Hospital Course: This 78-year-old white male was seen in the emergency room at [facility] with complaints of severe midsternal chest pain. Squad was called and the patient received 4 aspirin prior to arrival to the emergency room. Patient's EKG showed atrial fibrillation with mild tachycardia, initial troponin was 8, repeat troponin was 11,141. Interventional cardiology was consulted and the patient was placed on IV heparin and nitroglycerin drip, patient was placed in the ICU and seen in consultation by cardiology. Patient underwent a heart catheterization which revealed severe calcification of the proximal LAD and mid segment of the circumflex artery with hypokinesis of the lateral wall. It was recommended the patient be transferred to tertiary facility for evaluation of a PCI or bypass surgery. [facility] in [place] was contacted and agreed to accept the patient. Echocardiograms were performed on the patient which showed an EF of 50%. On 10/08/2024, patient was seen and examined: On examination he appeared in good health and spirits. Vital signs as documented. Skin warm and dry and without overt rashes. Neck without JVD, neck was supple, trachea midline, thyroid was normal. Lungs clear bilaterally, normal air movement was noted. Heart exam notable for regular rhythm, normal sounds and absence of murmurs, rubs or gallops. Abdomen unremarkable and without evidence of organomegaly, masses, or abdominal aortic enlargement. Bowel sounds are present, abdomen is not distended. Extremities nonedematous, no cyanosis was noted, no clubbing was noted. Neuro: Cranial nerves II through XII are grossly intact, no focal motor deficits were noted, sensation to light touch and pinprick intact, motor exam 5/5 throughout. Psych: Patient is alert and oriented x3, he does not appear anxious or depressed, he does not appear agitated. On 10/08/2024, patient was seen and examined and felt to be stable for transfer to [facility] in [place] for further treatment. Weight / BMI Weight Weight: 114 kg Body Mass Index (BMI) 37.0 ABG / Lab / Microbiology Data 10/08/24 04:17 10/08/24 04:17 Laboratory: Laboratory Results - last 24 hr 10/07/24 17:49: WBC 11.6 H, RBC 4.61, Hgb 13.1, Hct 40.2, MCV 87.2, MCH 28.4, MCHC 32.6, RDW Std Deviation 49.8 H, RDW Coeff of Rodrigo 15.7 H, Plt Count 259, MPV 10.4, Immature Gran % (Auto) 0.400, Neut % (Auto) 57.4, Lymph % (Auto) 26.5, Clark % (Auto) 14.0 H, Eos % (Auto) 1.3, Baso % (Auto) 0.4, Absolute Neuts (auto) 6.6, Absolute Lymphs (auto) 3.07, Nucleated RBC % 0, Diff Path Review Reviewed, Atypical Lymphocytes 2+, Plt Morphology Comment LARGE, Polychromasia RARE, Anisocytosis 1+, PT 15.4 H, INR 1.2, APTT 28.2, D-Dimer Quant (PE/DVT) 0.27, Sodium 136, Potassium 3.8, Chloride 103, Carbon Dioxide 28.0, Anion Gap 5, BUN 37 H, Creatinine 2.07 H, Estim Creat Clear Calc 35.79, Est GFR (MDRD) Af Amer 40 L, Est GFR (MDRD) Non-Af 33 L, BUN/Creatinine Ratio 17.9, Glucose 161 H, Calcium 8.7, Troponin I High Sens 8, B-Natriuretic Peptide 103.3 H 10/07/24 20:54: Troponin I High Sens [id number] H* 10/08/24 00:00: POC Glucose 171 H 10/08/24 02:00: Troponin I High Sens [id number] H* 10/08/24 04:17: WBC 11.8 H, RBC 4.48 L, Hgb 12.8 L, Hct 38.8 L, MCV 86.6, MCH 28.6, MCHC 33.0, RDW Std Deviation 48.7 H, RDW Coeff of Rodrigo 15.4 H, Plt Count 234, MPV 10.2, APTT 36.8 H, Sodium 136, Potassium 3.8, Chloride 103, Carbon Dioxide 26.0, Anion Gap 7, BUN 32 H, Creatinine 1.96 H, Estim Creat Clear Calc 38.05, Est GFR (MDRD) Af Amer 43 L, Est GFR (MDRD) Non-Af 35 L, BUN/Creatinine Ratio 16.3, Glucose 194 H, Calcium 8.5, Total Bilirubin 0.80, AST 233 H, ALT 38, Alkaline Phosphatase 61, Total Protein 6.9, Albumin 2.9 L, Globulin 4.0, Albumin/Globulin Ratio 0.7 L, Triglycerides 58, Cholesterol 129, LDL Cholesterol 55, VLDL Cholesterol 12, HDL Cholesterol 62, TSH 1.490 10/08/24 11:31: POC Glucose 193 H Radiography Diagnostic Testing: Radiology Impression Chest X-Ray 10/07/24 18:40 IMPRESSION: No acute radiographic abnormalities. Electronically Signed: Leonardo Pretty MD at 19:48 EST , Echocardiogram 10/07/24 22:57 Interpretation Summary The left ventricular ejection fraction is 50 %. Normal LV size. Mild segmental systolic dysfunction (see wall motion). The study was technically difficult. Contrast injection was performed. Ordering Physician: Barrett Waterman Referring Physician: Barrett Waterman Performed By: Mya Burns RDCS D/C Instructions DC O2, CPAP, BIPAP Needs Home O2 Discharge instructions: No Meaningful Use Info Meaningful Use Meaningful Use Diagnoses (Choose all that apply): AMI AMI/Post PCI/Angioplasty Aspirin given w/in 24hrs of arrival?: Yes ASA at discharge?: Yes Antiplatelet Therapy at Discharge:: Yes Statins at discharge?: Yes Raul/ARB at discharge?: Yes Beta Coby at discharge?: Yes Done w/ Acute HI measure.: Yes Documented LVEF (%): 50 Ischemic Stroke Statin Dosing Therapy Reference: STATIN DOSE THERAPY REFERENCE: * Patients > 75 years receive moderate or high dose statin therapy. * Patients 75 years or YOUNGER should receive HIGH intensity statin dose unless contraindicated. You will be required to document reason for non-treatment if statin daily dose does not meet guidelines. HIGH DOSE STATIN THERAPY DAILY Atorvastatin > than or = to 40 mg Rosuvastatin > than or = to 20 mg Amlodipine + Atorvastatin > than or = to 2.5/40 mg Ezetimibe + Simvastatin 10/80 mg Simvastatin 80mg Discharge Plan Admission Admit Date/Time: 10/07/24 22:27 Attending Provider: Frank Garces Primary Care Provider: Albert Montes Consulting Providers: Donis Sims; Barrett Waterman Discharge Orders/Prescriptions Prescriptions: No Action glimepiride 2 MG tablet 1 mg PO BIDAC Patient Comments: DIABETES cyanocobalamin (vitamin B-12) 500 MCG tablet 1,000 mcg PO DAILY@0800 Patient Comments: VITAMIN simvastatin 20 MG tablet 20 mg PO .COMPLEX Patient Comments: Cholesterol Rx Instructions: 20 mg orally with supper; doxazosin 4 MG tablet 4 mg PO QHS Patient Comments: HEART vitamin E (dl, acetate) 400 UNITS capsule 400 units PO DAILY Patient Comments: VITAMIN pioglitazone 15 mg Tablet 15 mg PO DAILY Xarelto 15 mg tablet 15 mg PO DAILY diltiazem HCl 180 mg capsule,extended release 24hr 360 mg PO Q24H losartan 100 mg tablet 100 mg PO DAILY hydrochlorothiazide 12.5 mg tablet 12.5 mg PO DAILY dapagliflozin propanediol [Farxiga] 10 mg tablet 10 mg PO DAILY Referrals / Follow Up: Albert Montes MD [Primary Care Provider] - Disposition Disposition (needs filled in before D/C Order can be placed): Acute Care Hospital Charges/Coding Visit Charges Inpatient E&M: 79000 Disch Hosp >30min
[2024-10-08] MEDS: HEPARIN/D5w 25,000 UNITS 25,000 UNITS/250 ML IV.SOLN. 12 UNITS CONT INF (18:25)
[2024-10-08] MEDS: Doxazosin 4 MG Tablet 8 MG PO (21:25)
[2024-10-08] MEDS: Atorvastatin Calcium 20 MG Tablet PO (21:25)
== END 2024-10-08 23:50 | disposition short-term general hospital (02) | DRG 281 ==
LOC: ED 18:35 → ICU 22:55
PROVIDERS: Admitting Provider Internal Medicine; Emergency Provider Surgery; PCP Internal Medicine; Referring Provider Internal Medicine; Visit Provider Internal Medicine
DX: I21.4 Non-ST elevation (NSTEMI) myocardial infarction (principal); I13.0 Hypertensive heart and chronic kidney disease with heart failure and stage 1 through stage 4 chronic kidney disease, or unspecified chronic kidney disease; I50.32 Chronic diastolic (congestive) heart failure; I48.20 Chronic atrial fibrillation, unspecified; E11.22 Type 2 diabetes mellitus with diabetic chronic kidney disease; N18.30 Chronic kidney disease, stage 3 unspecified; Z68.37 Body mass index [BMI] 37.0-37.9, adult; E78.5 Hyperlipidemia, unspecified; I25.10 Atherosclerotic heart disease of native coronary artery without angina pectoris; Z79.01 Long term (current) use of anticoagulants; Z79.84 Long term (current) use of oral hypoglycemic drugs; Z87.891 Personal history of nicotine dependence; E66.9 Obesity, unspecified; Z85.528 Personal history of other malignant neoplasm of kidney; Z86.16 Personal history of COVID-19; N40.0 Benign prostatic hyperplasia without lower urinary tract symptoms
CPT/HCPCS: 71046; 80048; 80053; 80061; 82962; 83880; 84443; 84484; 85025; 85027; 85379; 85610; 85730; 93005; 93306; 93458; 99152; 99153; 99285; Q9957; Q9967; A4216; C1769; C1894; C8929

== ENCOUNTER → 2024-10-23 | Outpatient (CLI) | payer MEDICARE, OTHER, SELFPAY ==
--- NOTE | 2024-10-23 14:08 | PCM.CR.HP2 ---
CR - History & Physical General Arrival date:: 10/23/24 Arrival time:: 14:08 Date of Referral:: 10/21/24 Date of CR Evaluation:: 10/23/24 Referring Physician: Dr. Luna Primary Diagnosis: Non-STEMI History of Present Cardiac Event Onset Date Acute Myocardial Infarction within 12 months:: Yes (10/07/24) PTCA or coronary stenting:: Yes Vessel: LAD and mid circumflex Medications Ambulatory Orders ?Medication ?Instructions ?Recorded cyanocobalamin (vitamin B-12) 500 1,000 mcg PO DAILY@0800 vitamin 06/30/14 mcg tablet doxazosin 4 mg tablet 4 mg PO QHS prostate 06/30/14 glimepiride 2 mg tablet 1 mg PO BIDAC diabetes 06/30/14 simvastatin 20 mg tablet 20 mg PO .COMPLEX cholesterol 06/30/14 vitamin E (dl, acetate) 180 mg 400 units PO DAILY vitamin 06/30/14 (400 unit) capsule pioglitazone 15 mg tablet 15 mg PO DAILY diabetes 07/15/21 rivaroxaban 15 mg tablet (Xarelto) 15 mg PO DAILY 08/27/22 dapagliflozin propanediol 10 mg 10 mg PO DAILY . 10/07/24 tablet (Farxiga) diltiazem HCl 180 mg capsule,24 360 mg PO Q24H Heart Rate 10/07/24 hr,extended release hydrochlorothiazide 12.5 mg tablet 12.5 mg PO DAILY 10/07/24 losartan 100 mg tablet 100 mg PO DAILY 10/07/24 Allergies Allergies No Known Allergies Allergy (Verified 10/07/24 17:42) Sleep Disorder Evaluation Hx of Sleep Apnea: Yes Do you snore loudly (louder than talking or can be heard through closed doors)?: No Do you often feel tired/ fatigued/ sleepy during daytime?: No Has anyone observed you stop breathing during sleep?: No History of Hypertension (for STOP score): Yes STOP Results: Negative Advanced Directives Advanced Directives Power of Scaffold Setter: Yes Living Will: Yes Advance Directives Information Provided: Yes Advance Directives on File: Yes DNR Order?:: No Past Medical History Covid-19 Screening Physicial Symptoms Other Clinical Concerns Exposure Risk Pertinent Comorbidities 65 years or older:: Yes Has a serious heart condition:: Yes Has chronic kidney disease undergoing dialysis:: Yes Past Medical Illness Past Medical History (Updated 10/16/24 @ 00:01 by Background An[place]) CHF (congestive heart failure), NYHA class II I50.9 Obesity (BMI 30-39.9) E66.9 NSTEMI, initial episode of care I21.4 DM2 (diabetes mellitus, type 2) E11.9 HTN (hypertension) I10 Dyslipidemia E78.5 Diabetes E11.9 Kidney disease N28.9 Former smoker Z87.891 Sleep apnea G47.30 HLD (hyperlipidemia) E78.5 History of renal cell carcinoma Z85.528 A-fib I48.91 Past Surgical History Past Surgical History History of nephrectomy Z90.5 Social History Smoking History Smoking Status: Never smoker Alcohol Use Alcohol Usage: No Substance Abuse Hx Substance Use: No Occupation Occupation (List type of work in comments):: Retired Hobbies, Recreation, Social Activities Hobbies: Other (fishing) Recreational Activities: I am able to engage in all my recreational activities Social Environment Status Marital Status: Current Living Arrangements Living Environment:: Spouse Children How many children do you have?: 3 Do any of your children live nearby?: Yes Safety Do you feel safe in your surroundings?: Yes Assistance Do you need any assistance at home?: no Review of Systems Review of Systems Hints Review of Present Symptoms: Reports Shortness of Breath with Exertion, PVD, Fatigue, Heart Arrhythmia/Irregularities, Appetite - Normal, Appetite - Special Diet and Sleep - Normal; Denies Shortness of Breath at Rest, Operative Discomfort, Angina, Wound Healing, Dizziness/Lightheadedness or Sexual Changes Pain Is Patient Pain Free?: Yes Risk Factor Assessment Chief Complaint Chief Complaint: Non-STEMI Vital Signs Pulse Ox: 95 Blood Pressure: 140/60 Pulse Pulse Rate: 87 Pulse Rhythm: Irregular Hypertension Blood Pressure Sitting - Right Arm: 140/60 Diabetes Diabetic History: Type II Nutrition Referral for Diabetes: Yes Obesity Height: 5 ft 9 in Weight:: 265 lb Weight in Pounds: 265.0 lbs Body Mass Index (BMI): 39.1 Nutritional Referral for Obesity: No Physical Inactivity Physical Inactivity: None Risk Stratification Risk Guidelines: Moderate Risk: Risk Factor for Smoking, Risk Factor for Sedentary Lifestyle and Risk Factor for Depression and Highest Risk: Risk Factor for Dyslipidemia, Risk Factor for Diabetes, Risk Factor for Obesity and Risk Factor for Hypertension For Smoking Smoking Risk Guidelines For Dyslipidemia Dyslipidemia Risk Guidelines For Diabetes Mellitus Diabetes Risk Guidelines For Obesity/Overweight Obesity/Overweight Risk Guidelines For Hypertension Hypertension Risk Guidelines For Sedentary Lifestyle Sedentary Lifestyle Risk Guidelines For Depression Depression Risk Guidelines Motivation Motivation to Participate On a scale of 1 to 10, how prepared are you to commit to attending program?: 7 What do you see as barriers to successfully being able to complete the program?: nothing What do you see as the benefits of succesfully completing the program? In other words, what do you hope to get out of participating in the program?: more energy, build some muscle Are there issues you are dealing with that will interfere with completing the program?: no Do you have a spouse or signficant other, family or friends who will help support you to complete the program?: yes
[2024-10-23 14:17] VITALS: BP 140/60; PULSE 87; O2SAT 95
--- NOTE | 2024-10-23 14:17 | CR.ITP_ITS ---
Diagnosis General Information Admitting Diagnosis: Non-STEMI Personal Learning Style:: Audio/Visual Barriers to Learning: No Barriers Stage of change r/t lifestyle modifications:: Contemplation Gave educational material for:: Treating Heart Disease, How The Heart Works, What it means to have Heart Disease, How Coronary Artery Disease is Diagnosed, Heart Procedures, What Heart Medications Do, Risk Factors & Modifications, Ceci ing an Active Life, Nutrition, Emotions & Heart Disease, Stress Management & Relaxation and Sleep Disorders & Heart Disease Education/Goals Cardiac Rehabilitation Goals Personal Goals: Initial Assessment: Improve energy level, Get back to work, or to resume activities faster, Improve knowledge of cardiac disease, Improve mus daniella strength and endurance and Improve diet and eating habits (eat healthier) Scale for measuring improvement of personal goals Diagnosis & Disease Process Outcomes/Goals: Pt IDs own risk factors & lifestyle modifications by Session 10, Verbalizes symptoms of angina & response by session 3., Pt independently manages and Other Additional Outcomes/Goals: Plan/Interventions: Assist Pt to ID & engage in lifestyle modification to reduce CVD risk, Instruct on individual risk factors, Review symptoms of angina & emergency actions, Review secondary diagnosis & identify educational needs. and Other see comment 30 day Reassessments:: Not Met 30 day Reassessments:: Not Met 30 day Reassessments:: Not Met 30 day Reassessments:: Not Met Final Reassessments:: Not Met Safety Referral to Physical Therapy: No Referral to [facility] Case Management: No Fall Risk Assessed:: Yes Assistive Devices:: None Exercise - Initial Assessment Visit Date of Eval: 10/23/24 (initial eval) Mets: Pre-: >3 METS for 30 minutes by discharge, >5 METS for 30 minutes by discharge, >7 METS for 30 minutes by discharge and Unable to meet goal due to: (see comment below) Physician Prescribed Exercise Modalities: Treadmill, Rower, Schwinn Airdyne AD-7, SciFit Stepper, SciFit Pro- II Ergometer and SciFit Lateral [employer] Frequency: 3x/week for 12 weeks [36 sessions] Intensity: 60-80% of age predicted maximum heart rate reserve Duration: 30 - 45 minutes Current METSs:: 3 Target Heart Rate:: 92-111 Resting Blood Pressure: 140/60 EKG Type: a-fib Outcomes & Goals Goals:: Verbalizes understanding of THR, RPE & goal METS by session 6, Documents in home exercise log/reports 30 min aerobic 5 day/wk by DC, Demonstrates accurate pulse taking by DC and Other additional outcome/goals: see below Intervention & Plan Exercise Program Goals: Instruct on personal THR & RPE, Instruct on MET level & personal MET goal, Show patient to take own pulse /validate performance until accurate, Instruct on home exercise and Other additional plan/int Physical Activity Home Exercise Physical Activity - Home Exercise: Safe Exercise, Warm-up, Self-monitoring, Cool-Down, Home Exercise > 30 min Daily and Sitting Time <3 hours/daily Outcomes & Goals Outcomes/Goals: Demonstrates correct Warm-up/exercise Cool-Down (S3) if = 2.5 METs, Verbalizes symptoms of exercise intolerance by Session 3 (S3), Demonstrate safe equipment use (S3) & follows exercise prescrition (6) and Other: See below Intervention & Plan Plan/Intervention: Instruct warm-up & cool-down if exercising at > 2 METs, Instruct on symptoms of exercise intolerance & actions to take, Instruct & monitor on saf, Assess intial functional capacity & safety risk and Other See below Nutrition - Initial Assessment Program Goals Nutrition Program Goals Patient has diagnosis of Hyperlipidemia (ICD E78)?: Yes Visit Date of Eval: 10/23/24 (initial eval ) Cholesterol/Lipids (Other Core Measures) Determine presence & major risk factors that modify LDL goal: Hypertension or hypertensive medication, Low HDL cholesterol <40 mg/dL*, Family history of premature CHD in Male < 55 years: female <65 yearsFa and Age men > 45 years; women >/= 55 years Outcomes/Goals: Pt IDs own risk factors & lifestyle modifications by Session 10, Verbalizes symptoms of angina & response by session 3., Pt independently manages and Other Additional Outcomes/Goals: Intervention/Plan: Advocate for lipid panel cholesterol medication if applicable, Instruct on personal lipid levels & lipid goals/NCEP guidelines, Instruct on cholesterol and Other additional plan/int Referral to dietitian:: No Diabetes (Other Core Measures) Diabetes Type: Diagnosis Type II ICD-10 E11 Insulin dependent injection/pump?: No Non-Insulin Dependent?: Yes Do you monitor your blood sugar at home?: Yes Referral to Diabetic Clinic:: No Outcomes/Goals:: Able to state symptoms of, Able to state, Able to state and Other additional Intervention/Plan:: Instruct on, Refer to, Instruct on and Other Weight Mgt (Other Care) Height: 5 ft 9 in Weight:: 265 lb BMI: 39.1 Diagnosis Overweight/Obesity BMI> 30% ICD-10 E66: Yes Diagnosis High BMI/Morbid Obesity BMI> 35% ICD-10 Z68: Yes Outcomes/Goals: Pt sets, maintains & shows weight loss goal & trend during rehab and Other additional outcomes/goals Intervention/Plan: Instruct on ideal BMI & set weight loss goal w/patient, Assist pt to ID & incorporate diet changes for weight loss by S9, Refer to Structured Weight Loss program as appropriate, Encourage goal of using 250- 300dcal per session for weight loss and Other additional plan/interventions Healthy Eating Habits Will attend diet classes:: Yes Outcomes/Goals:: Consume diet rich in vegs,fruits,whole grain/high fiber,fish,lean meat, Limit sat/trans fats,cholesterol & added salts & sugars and Other additional outcome/goals: Intervention/Plan:: Assess current eating habits and Other Additional plan/interventions Education Gave educational materials for:: Signs & symptoms of hypoglycemia, Signs & symptoms of hyperglycemia, Relate diabetes to coronary artery disease and Healthy eating Core - Initial Assessment Visit Date of Eval: 10/23/24 (initial eval ) Medication Compliance Preventative Medication(s):: Clopidogrel/P2Y12 inhibit, Statin/lipid and ARB (Angiotensi Rcap) H/O mental health issues: depression, anxiety, or addiction?: No Doesn?t believe in the benefits of treatment?: No Believes medications are unnecessary or harmful?: No Has a concern about medication side effects?: No Expresses concern over the cost of medications?: No Outcomes/Goals: Verbalizes medications,desired effect & common side effects @ DC, Pt self-reports following medication regimen, Keeps card in wallet w/medications listed by DC and Other additional outcome/goals: Interventions/plans: Instruct on medication effects & side effects, Review medication list w/patient every two weeks, Instruct importance of taking meds as ordered & assist problem solving and Other additional Tobacco Use Tobacco Use: Non-smoker Hypertension Hypertension Diagnosis:: Hypertension ICD-10 I10 Resting Blood Pressure:: 140/60 [place] [employer] Hypertension Guidelines Outcomes/Goals: Able to verbalize/achieve optimal blood pressure <130/80, Incorporates diet changes & exercise for blood pressure control by DC and Other additional outcomes/goals Interventions/plan: Instruct on optimal blood pressure, hypertension & medications, Instruct on effects of sodium, alcohol, stress, exercise &hypertension and Other additional plan/interventions Tobacco Cessation Referral Smoking Cessation Referral:: No Individual Education/Counseling:: No Education Schedule Given:: Yes Psychosocial - Initial Assess VIsit Date of Eval: 10/23/24 (initial eval ) History of previous Mental disease:: No Target Goals Target Goals Psychosocial Test Tool Used:: Doubles Alley QOL Cardiac and PHQ-9 Questionnaire phq-9 Severity Referral to Behavioral Health PS - Interventions: Yes: Attend Stress Management Classes Outcomes/Goals: See list Psychosocial Outcomes/Goals:: ID's personal stressors & 2 strategies to manage stress by discharge and Other Additional outcome/goals: Intervention/Plan: See List Interventions/Plan:: Assess stressors,coping strategies & signs of derpression on admission, Instruct/assist pt to develop coping & personal stress Mgt strategies, Refer to Behavioral Health if appropriate, Refer to Physician if appropriate, Instruct patient to recognize signs & symptoms of depression, Instruct patient to recog and Other additional plan/intervention Patient Health Questionnaire PHQ-9 Screening Initial Assessment: 1. Little interest or pleasure in doing things: More than half the days 2. Feeling down, depressed, or hopeless: Not at all 3. Trouble falling or staying asleep, or sleeping too much: Not at all 4. Feeling tired or having little energy: More than half the days 5. Poor appetite or overeating: Not at all 6. Feeling bad about yourself -- or that you are a failure or have let yourself or your family down: Not at all 7. Trouble concentrating on things, such as reading the newspaper or watching television: Not at all 8. Moving or speaking so slowly that other people could have noticed. Or the opposite - being so fidgety or restless that you have been moving around a lot more than usual: Not at all 9. Thoughts that you would be better off , or of hurting yourself in some way: Not at all How difficult have these problems made it for you to do your work, take care of things at home, or get along with other people?: Not difficult at all Total Score: 4 PRUDENCE-Q SV Test Statements CAD is a disease of the arteries in the heart: True Examples of risk factors for heart disease: True Angina is chest pain or discomfort: True The benefits of resistance training include: True Eating more meat and dairy products: False Anti-platelet medications such as aspirin are important: True The only effective way to manage stress: False An exercise warm-up slowly increases heart rate: True Prepared, processed foods usually have high sodium: True Depression is common after a heart attack: False The statin medications lower cholesterol: True To control blood pressure, lower the amount of sodium: True If someone gets chest discomfort during walking: False Transfats are partially hydrogenated vegetable oils: True Sleep apnea that is not treated increases the risk: False To control cholesterol, one should become a vegetarian: False Someone knows if he/she is exercising at the right level: False Diabetes cannot be prevented with exercise & health eating: False Stress is a large risk for heart attack: True A diet that can help lower blood pressure is rich in: True Total Score Total Correct Responses: 17 Self-Efficacy 6-Item Scale Initial Assessment: We would like to know how confident you are in doing certain activities. Please select your confidence level for: Fatigue Select Number: 5 Physical Discomfort or Pain Select Number: 5 Emotional Distress Select Number: 9 Other Symptoms or Health Problems Select Number: 9 Different Tasks and Activities Select Number: 8 Medication Select Number: 8 Total Score:: 7 Nutrition Survey Nutrition Survey Instructions Scoring Instructions Nutrition Survey Initial: Have you lost >10 lbs over the past 2 months without trying?: No Are you following a special diet at home for diabetes, low fat, or low salt?: Yes Are you interested in meeting with a dietitian for help understanding your diet?: Yes Do you eat less than 3 meals a day?: No Do you eat fatty meats (tubbs, sausage, ribs, etc), fried foods, desserts, large amounts of salad dressings, margarine, butter, or cheese most days?: Yes Do you have food allergies? [Enter types in comment field]: No Do you eat in restaurants more than 3 times a week?: No Do you season food with salt, seasoning salt, or garlic salt?: Yes Do you used canned, boxed, frozen meals, or soups, seasoning packets?: Yes Total Score:: 5 Exercise - 30-day Assessment Physician Prescribed Exercise Modalities: Treadmill, Rower, Schwinn Airdyne AD-7, SciFit Stepper, SciFit Pro- II Ergometer and SciFit Lateral [place] Exercise - 60-day Assessment Physician Prescribed Exercise Modalities: Treadmill, Rower, Schwinn Airdyne AD-7, SciFit Stepper, SciFit Pro- II Ergometer and SciFit Lateral [place] Exercise - 90-day Assessment Physician Prescribed Exercise Modalities: Treadmill, Rower, Schwinn Airdyne AD-7, SciFit Stepper, SciFit Pro- II Ergometer and SciFit Lateral [place] Exercise - Final/Discharge Physician Prescribed Exercise Modalities: Treadmill, Rower, Schwinn Airdyne AD-7, SciFit Stepper, SciFit Pro- II Ergometer and SciFit Lateral [place] Frequency: 3x/week for 12 weeks [36 sessions] Intensity: 60-80% of age predicted maximum heart rate reserve Current METSs:: 3 Target Heart Rate:: 92-111 Nutrition - 30-Day Assessment Weight Mgt (Other Care) Height: 5 ft 9 in Weight:: 265 lb BMI: 39.1 Nutrition - 60-Day Assessment Weight Mgt (Other Care) Height: 5 ft 9 in Weight:: 265 lb BMI: 39.1 Core - Final Assessment Hypertension Resting Blood Pressure:: 140/60 [place] [employer] Hypertension Guidelines Core - 60-Day Assessment Hypertension Resting Blood Pressure:: 140/60 [place] [employer] Hypertension Guidelines Psychosocial - 30-Day Assess Target Goals Target Goals Referral to Behavioral Health PS - Interventions: Yes: Attend Stress Management Classes Psychosocial - 60-Day Assess Target Goals Target Goals Referral to Behavioral Health PS - Interventions: Yes: Attend Stress Management Classes Psychosocial - 90-Day Assess Target Goals Target Goals Referral to Behavioral Health PS - Interventions: Yes: Attend Stress Management Classes Psychosocial - Final Assessmen Target Goals Target Goals Referral to Behavioral Health PS - Interventions: Yes: Attend Stress Management Classes Nutrition - 90-Day Assessment Weight Mgt (Other Care) Height: 5 ft 9 in Weight:: 265 lb BMI: 39.1 Nutrition - Final Assessment Program Goals Patient has diagnosis of Hyperlipidemia (ICD E78)?: Yes Weight Mgt (Other Care) Height: 5 ft 9 in Weight:: 265 lb BMI: 39.1
[2024-10-23 14:27] VITALS: BP 140/60
[2024-10-23 15:06] VITALS: BMI 39.1
[2024-10-23 15:10] VITALS: BMI 39.1
== END | disposition home or self-care (01) ==
PROVIDERS: PCP Internal Medicine
DX: R07.9 Chest pain, unspecified (principal)

== ENCOUNTER 2024-11-15 13:00 | Outpatient (RCR) | payer MEDICARE, OTHER, SELFPAY ==
[2024-10-23 15:06] VITALS: BMI 39.1
== END 2024-11-15 23:59 ==
LOC: CR 13:00
PROVIDERS: PCP Internal Medicine
DX: I21.4 Non-ST elevation (NSTEMI) myocardial infarction (principal)

== ENCOUNTER 2024-12-13 13:00 | Outpatient (RCR) | payer MEDICARE, OTHER, SELFPAY ==
[2024-10-23 15:06] VITALS: BMI 39.1
--- NOTE | 2024-11-21 09:30 | CR.ITP_ITS ---
Exercise - Initial Assessment Visit Session #:: 12 Physician Prescribed Exercise Modalities: Treadmill, Schwinn Airdyne AD-7 and SciFit Stepper Nutrition - Initial Assessment Weight Mgt (Other Care) Height: 5 ft 9 in Weight:: 251 lb BMI: 37.0 Psychosocial - Initial Assess Target Goals Target Goals Referral to Behavioral Health PS - Interventions: Yes: Attend Stress Management Classes Patient Health Questionnaire PHQ-9 Screening 30-Day Re-eval Assessment: 1. Little interest or pleasure in doing things: More than half the days 2. Feeling down, depressed, or hopeless: Not at all 3. Trouble falling or staying asleep, or sleeping too much: Not at all 4. Feeling tired or having little energy: More than half the days 5. Poor appetite or overeating: Not at all 6. Feeling bad about yourself -- or that you are a failure or have let yourself or your family down: Not at all 7. Trouble concentrating on things, such as reading the newspaper or watching television: Not at all 8. Moving or speaking so slowly that other people could have noticed. Or the opposite - being so fidgety or restless that you have been moving around a lot more than usual: Not at all 9. Thoughts that you would be better off , or of hurting yourself in some way: Not at all How difficult have these problems made it for you to do your work, take care of things at home, or get along with other people?: Not difficult at all Total Score: 4 Self-Efficacy 6-Item Scale 30-Day Re-eval Assessment: We would like to know how confident you are in doing certain activities. Please select your confidence level for: Fatigue Select Number: 5 Physical Discomfort or Pain Select Number: 5 Emotional Distress Select Number: 9 Other Symptoms or Health Problems Select Number: 9 Different Tasks and Activities Select Number: 8 Medication Select Number: 8 Total Score:: 7 Nutrition Survey Nutrition Survey Instructions Scoring Instructions Exercise - 30-day Assessment Visit Date of Eval: 11/21/24 Session #:: 12 Physician Prescribed Exercise Modalities: Treadmill, Schwinn Airdyne AD-7 and SciFit Stepper Frequency: 3x/week for 12 weeks [36 sessions] Intensity: 60-80% of age predicted maximum heart rate reserve Duration: 30 - 45 minutes Current METSs:: 3.4 Target Heart Rate:: 92-111 Current RPE:: 11-12 Maximum Excercise HR:: 156 Resting Blood Pressure: 126/60 Maximum Exercise Blood Pressure: 144/78 EKG Type: A-fib with rare ventricular ectopy. Outcomes & Goals Goals:: Verbalizes understanding of THR, RPE & goal METS by session 6, Documents in home exercise log/reports 30 min aerobic 5 day/wk by DC, Demonstrates accurate pulse taking by DC and Other additional outcome/goals: see below Intervention & Plan Exercise Program Goals: Instruct on personal THR & RPE, Instruct on MET level & personal MET goal, Show patient to take own pulse /validate performance until accurate, Instruct on home exercise and Other additional plan/int Physical Activity Home Exercise Physical Activity - Home Exercise: Safe Exercise, Warm-up, Self-monitoring, Cool-Down, Home Exercise > 30 min Daily and Sitting Time <3 hours/daily Outcomes & Goals Outcomes/Goals: Demonstrates correct Warm-up/exercise Cool-Down (S3) if = 2.5 METs, Verbalizes symptoms of exercise intolerance by Session 3 (S3), Demonstrate safe equipment use (S3) & follows exercise prescrition (6) and Other: See below Intervention & Plan Plan/Intervention: Instruct warm-up & cool-down if exercising at > 2 METs, Instruct on symptoms of exercise intolerance & actions to take, Instruct & monitor on saf, Assess intial functional capacity & safety risk and Other See below 30-day Reassessments 30 day Reassessments:: Progressing Reassessment Notes & Comments:: RPE explained to pt. Pt demonstrates understanding. Exercise - 60-day Assessment Physician Prescribed Exercise Modalities: Treadmill, Schwinn Airdyne AD-7 and SciFit Stepper Exercise - 90-day Assessment Physician Prescribed Exercise Modalities: Treadmill, Schwinn Airdyne AD-7 and SciFit Stepper Exercise - Final/Discharge Physician Prescribed Exercise Modalities: Treadmill, Schwinn Airdyne AD-7 and SciFit Stepper Nutrition - 30-Day Assessment Program Goals Nutrition Program Goals Patient has diagnosis of Hyperlipidemia (ICD E78)?: Yes Visit Date of Eval: 11/21/24 Session #:: 12 Cholesterol/Lipids (Other Core Measures) Determine presence & major risk factors that modify LDL goal: Hypertension or hypertensive medication, Low HDL cholesterol <40 mg/dL*, Family history of premature CHD in Male < 55 years: female <65 yearsFa and Age men > 45 years; women >/= 55 years Outcomes/Goals: Pt IDs own risk factors & lifestyle modifications by Session 10, Verbalizes symptoms of angina & response by session 3. and Pt independently manages Intervention/Plan: Advocate for lipid panel cholesterol medication if applicable, Instruct on personal lipid levels & lipid goals/NCEP guidelines, Instruct on cholesterol and Other additional plan/int Diabetes (Other Core Measures) Diabetes Type: Diagnosis Type II ICD-10 E11 Insulin dependent injection/pump?: No Non-Insulin Dependent?: Yes Do you monitor your blood sugar at home?: Yes Referral to Diabetic Clinic:: No Weight Mgt (Other Care) Height: 5 ft 9 in Weight:: 251 lb BMI: 37.0 Diagnosis Overweight/Obesity BMI> 30% ICD-10 E66: Yes Diagnosis High BMI/Morbid Obesity BMI> 35% ICD-10 Z68: Yes Outcomes/Goals: Pt sets, maintains & shows weight loss goal & trend during rehab and Other additional outcomes/goals Intervention/Plan: Instruct on ideal BMI & set weight loss goal w/patient, Assist pt to ID & incorporate diet changes for weight loss by S9, Refer to Structured Weight Loss program as appropriate, Encourage goal of using 250- 300dcal per session for weight loss and Other additional plan/interventions Healthy Eating Habits Will attend diet classes:: Yes Outcomes/Goals:: Consume diet rich in vegs,fruits,whole grain/high fiber,fish,lean meat, Limit sat/trans fats,cholesterol & added salts & sugars and Other additional outcome/goals: Intervention/Plan:: Assess current eating habits and Other Additional plan/interventions 30-day Reassessments:: Progressing Reassessment Notes & Comments:: Pt scheduled to attend nutrition class next week. Low sodium heart healthy diet encouraged. Education Gave educational materials for:: Signs & symptoms of hypoglycemia, Signs & symptoms of hyperglycemia, Relate diabetes to coronary artery disease and Healthy eating Nutrition - 60-Day Assessment Weight Mgt (Other Care) Height: 5 ft 9 in Weight:: 251 lb BMI: 37.0 Core - 30-Day Assessment Visit Date of Eval: 11/21/24 Session #:: 12 Medication Compliance Preventative Medication(s):: Clopidogrel/P2Y12 inhibit, Statin/lipid and ARB (Angiotensi Rcap) H/O mental health issues: depression, anxiety, or addiction?: No Doesn?t believe in the benefits of treatment?: No Believes medications are unnecessary or harmful?: No Has a concern about medication side effects?: No Expresses concern over the cost of medications?: No Outcomes/Goals: Verbalizes medications,desired effect & common side effects @ DC, Pt self-reports following medication regimen and Keeps card in wallet w/medications listed by DC Interventions/plans: Instruct on medication effects & side effects, Review medication list w/patient every two weeks and Instruct importance of taking meds as ordered & assist problem solving Tobacco Use Tobacco Use: Non-smoker Hypertension Hypertension Diagnosis:: Hypertension ICD-10 I10 Resting Blood Pressure:: 120/60 [place] [employer] Hypertension Guidelines Peak Exercise Blood Pressure:: 144/78 Outcomes/Goals: Able to verbalize/achieve optimal blood pressure <130/80 and Incorporates diet changes & exercise for blood pressure control by DC Interventions/plan: Instruct on optimal blood pressure, hypertension & medications and Instruct on effects of sodium, alcohol, stress, exercise &hypertension 30 day Reassessments:: Progressing Reassessment Notes & Comments:: Pt's BP's are within AHA normal limits on most day. Low sodium heart healthy diet encouraged to to help lower BP's. Will continue to monitor. Tobacco Cessation Referral Smoking Cessation Referral:: No Individual Education/Counseling:: No Education Schedule Given:: Yes Psychosocial - 30-Day Assess VIsit Date of Eval: 11/21/24 Session #:: 12 History of previous Mental disease:: No Target Goals Target Goals Psychosocial Test Tool Used:: [employer] QOL Cardiac and PHQ-9 Questionnaire phq-9 Severity Referral to Behavioral Health PS - Interventions: Yes: Attend Stress Management Classes Outcomes/Goals: See list Psychosocial Outcomes/Goals:: ID's personal stressors & 2 strategies to manage stress by discharge and Other Additional outcome/goals: Intervention/Plan: See List Interventions/Plan:: Assess stressors,coping strategies & signs of derpression on admission, Instruct/assist pt to develop coping & personal stress Mgt strategies, Refer to Behavioral Health if appropriate, Refer to Physician if appropriate, Instruct patient to recognize signs & symptoms of depression, Instruct patient to recog and Other additional plan/intervention 30-day Reassessments: 30 day Reassessments:: Met Reassessment Notes & Comments:: Pt denies any psychosocial issues at this time Psychosocial - 60-Day Assess Target Goals Target Goals Referral to Behavioral Health PS - Interventions: Yes: Attend Stress Management Classes Outcomes/Goals: See list Psychosocial Outcomes/Goals:: ID's personal stressors & 2 strategies to manage stress by discharge and Other Additional outcome/goals: Psychosocial - 90-Day Assess Target Goals Target Goals Referral to Behavioral Health PS - Interventions: Yes: Attend Stress Management Classes Psychosocial - Final Assessmen Target Goals Target Goals Referral to Behavioral Health PS - Interventions: Yes: Attend Stress Management Classes Nutrition - 90-Day Assessment Weight Mgt (Other Care) Height: 5 ft 9 in Weight:: 251 lb BMI: 37.0 Nutrition - Final Assessment Weight Mgt (Other Care) Height: 5 ft 9 in Weight:: 251 lb BMI: 37.0
[2024-11-21 09:37] VITALS: BP 126/60
[2024-11-21 10:08] VITALS: BP 120/60; BMI 37.0
== END 2024-12-13 23:59 ==
LOC: CR 13:00
PROVIDERS: PCP Internal Medicine
DX: I21.4 Non-ST elevation (NSTEMI) myocardial infarction (principal)
CPT/HCPCS: 93798

== ENCOUNTER 2025-01-13 13:00 | Outpatient (RCR) | payer MEDICARE, OTHER, SELFPAY ==
[2024-11-21 10:08] VITALS: BMI 37.0
[2024-12-14 00:55] VITALS: BP 120/60; BP 126/60
--- NOTE | 2024-12-19 07:40 | PCM.CR.ITP ---
Exercise - Initial Assessment Physician Prescribed Exercise Modalities: Treadmill, Schwinn Airdyne AD-7 and SciFit Stepper Nutrition - Initial Assessment Weight Mgt (Other Care) Height: 5 ft 9 in Weight:: 250 lb 8 oz BMI: 37.0 Core - Initial Assessment Hypertension Resting Blood Pressure:: 122/66 [place] [employer] Hypertension Guidelines Psychosocial - Initial Assess Target Goals Target Goals Referral to Behavioral Health PS - Interventions: Yes: Attend Stress Management Classes Patient Health Questionnaire PHQ-9 Screening 60-Day Re-eval Assessment: 1. Little interest or pleasure in doing things: More than half the days 2. Feeling down, depressed, or hopeless: Not at all 3. Trouble falling or staying asleep, or sleeping too much: Not at all 4. Feeling tired or having little energy: More than half the days 5. Poor appetite or overeating: Not at all 6. Feeling bad about yourself -- or that you are a failure or have let yourself or your family down: Not at all 7. Trouble concentrating on things, such as reading the newspaper or watching television: Not at all 8. Moving or speaking so slowly that other people could have noticed. Or the opposite - being so fidgety or restless that you have been moving around a lot more than usual: Not at all 9. Thoughts that you would be better off , or of hurting yourself in some way: Not at all How difficult have these problems made it for you to do your work, take care of things at home, or get along with other people?: Not difficult at all Total Score: 4 Self-Efficacy 6-Item Scale 60-Day Re-eval Assessment: We would like to know how confident you are in doing certain activities. Please select your confidence level for: Fatigue Select Number: 5 Physical Discomfort or Pain Select Number: 5 Emotional Distress Select Number: 9 Other Symptoms or Health Problems Different Tasks and Activities Select Number: 8 Medication Select Number: 8 Nutrition Survey Nutrition Survey Instructions Scoring Instructions Exercise - 30-day Assessment Physician Prescribed Exercise Modalities: Treadmill, Schwinn Airdyne AD-7 and SciFit Stepper Exercise - 60-day Assessment Visit Date of Eval: 12/19/24 Session #:: 24 Physician Prescribed Exercise Modalities: Treadmill, Schwinn Airdyne AD-7 and SciFit Stepper Frequency: 3x/week for 12 weeks [36 sessions] Intensity: 60-80% of age predicted maximum heart rate reserve Duration: 30 - 45 minutes Current METSs:: 3.9 Target Heart Rate:: 92-111 Current RPE:: 12 Maximum Excercise HR:: 140 Resting Blood Pressure: 110/62 Maximum Exercise Blood Pressure: 140/62 EKG Type: Afib with occas PVC's with a short burst of RVR that self resolved. Outcomes & Goals Goals:: Verbalizes understanding of THR, RPE & goal METS by session 6, Documents in home exercise log/reports 30 min aerobic 5 day/wk by DC, Demonstrates accurate pulse taking by DC and Other additional outcome/goals: see below Intervention & Plan Exercise Program Goals: Instruct on personal THR & RPE, Instruct on MET level & personal MET goal, Show patient to take own pulse /validate performance until accurate, Instruct on home exercise and Other additional plan/int Physical Activity Home Exercise Physical Activity - Home Exercise: Safe Exercise, Warm-up, Self-monitoring, Cool-Down, Home Exercise > 30 min Daily and Sitting Time <3 hours/daily Outcomes & Goals Outcomes/Goals: Demonstrates correct Warm-up/exercise Cool-Down (S3) if = 2.5 METs, Verbalizes symptoms of exercise intolerance by Session 3 (S3), Demonstrate safe equipment use (S3) & follows exercise prescrition (6) and Other: See below Intervention & Plan Plan/Intervention: Instruct warm-up & cool-down if exercising at > 2 METs, Instruct on symptoms of exercise intolerance & actions to take, Instruct & monitor on saf, Assess intial functional capacity & safety risk and Other See below 30-day Reassessments 30 day Reassessments:: Progressing Reassessment Notes & Comments:: Proper warm up and cool down explained and demonstrated to pt. Pt is able to return demonstration. Exercise - 90-day Assessment Physician Prescribed Exercise Modalities: Treadmill, Schwinn Airdyne AD-7 and SciFit Stepper Exercise - Final/Discharge Physician Prescribed Exercise Modalities: Treadmill, Schwinn Airdyne AD-7 and SciFit Stepper Nutrition - 30-Day Assessment Weight Mgt (Other Care) Height: 5 ft 9 in Weight:: 250 lb 8 oz BMI: 37.0 Nutrition - 60-Day Assessment Program Goals Nutrition Program Goals Patient has diagnosis of Hyperlipidemia (ICD E78)?: Yes Visit Date of Eval: 12/19/24 Session #:: 24 Cholesterol/Lipids (Other Core Measures) Determine presence & major risk factors that modify LDL goal: Hypertension or hypertensive medication, Low HDL cholesterol <40 mg/dL*, Family history of premature CHD in Male < 55 years: female <65 yearsFa and Age men > 45 years; women >/= 55 years Outcomes/Goals: Pt IDs own risk factors & lifestyle modifications by Session 10, Verbalizes symptoms of angina & response by session 3., Pt independently manages and Other Additional Outcomes/Goals: Intervention/Plan: Advocate for lipid panel cholesterol medication if applicable, Instruct on personal lipid levels & lipid goals/NCEP guidelines, Instruct on cholesterol and Other additional plan/int Diabetes (Other Core Measures) Diabetes Type: Diagnosis Type II ICD-10 E11 Insulin dependent injection/pump?: No Non-Insulin Dependent?: Yes Do you monitor your blood sugar at home?: Yes Referral to Diabetic Clinic:: No Weight Mgt (Other Care) Height: 5 ft 9 in Weight:: 250 lb 8 oz BMI: 37.0 Diagnosis Overweight/Obesity BMI> 30% ICD-10 E66: Yes Outcomes/Goals: Pt sets, maintains & shows weight loss goal & trend during rehab and Other additional outcomes/goals Intervention/Plan: Instruct on ideal BMI & set weight loss goal w/patient, Assist pt to ID & incorporate diet changes for weight loss by S9, Refer to Structured Weight Loss program as appropriate, Encourage goal of using 250-300dcal per session for weight loss and Other additional plan/interventions Healthy Eating Habits Will attend diet classes:: Yes Outcomes/Goals:: Consume diet rich in vegs,fruits,whole grain/high fiber,fish,lean meat, Limit sat/trans fats,cholesterol & added salts & sugars and Other additional outcome/goals: Intervention/Plan:: Assess current eating habits and Other Additional plan/interventions 30-day Reassessments:: Progressing Reassessment Notes & Comments:: Pt has attended nutrition class. Pt understands the benefits of a low sodium heart healthy diet. Education Gave educational materials for:: Signs & symptoms of hypoglycemia, Signs & symptoms of hyperglycemia, Relate diabetes to coronary artery disease and Healthy eating Core - Final Assessment Hypertension Resting Blood Pressure:: 122/66 [place] [employer] Hypertension Guidelines Core - 60-Day Assessment Visit Date of Eval: 12/19/24 Session #:: 24 Medication Compliance Preventative Medication(s):: Clopidogrel/P2Y12 inhibit, Statin/lipid and ARB (Angiotensi Rcap) H/O mental health issues: depression, anxiety, or addiction?: No Doesn?t believe in the benefits of treatment?: No Believes medications are unnecessary or harmful?: No Has a concern about medication side effects?: No Expresses concern over the cost of medications?: No Outcomes/Goals: Verbalizes medications,desired effect & common side effects @ DC, Pt self-reports following medication regimen, Keeps card in wallet w/medications listed by DC and Other additional outcome/goals: Interventions/plans: Instruct on medication effects & side effects, Review medication list w/patient every two weeks, Instruct importance of taking meds as ordered & assist problem solving and Other additional Tobacco Use Tobacco Use: Non-smoker Hypertension Hypertension Diagnosis:: Hypertension ICD-10 I10 Resting Blood Pressure:: 110/62 Resting Blood Pressure:: 122/66 [place] [employer] Hypertension Guidelines Peak Exercise Blood Pressure:: 140/62 Outcomes/Goals: Able to verbalize/achieve optimal blood pressure <130/80, Incorporates diet changes & exercise for blood pressure control by DC and Other additional outcomes/goals Interventions/plan: Instruct on optimal blood pressure, hypertension & medications, Instruct on effects of sodium, alcohol, stress, exercise &hypertension and Other additional plan/interventions 30 day Reassessments:: Met Reassessment Notes & Comments:: Pt's BP's are within AHA normal limits Tobacco Cessation Referral Smoking Cessation Referral:: No Individual Education/Counseling:: No Education Schedule Given:: Yes Psychosocial - 30-Day Assess Target Goals Target Goals Referral to Behavioral Health PS - Interventions: Yes: Attend Stress Management Classes Outcomes/Goals: See list Psychosocial Outcomes/Goals:: ID's personal stressors & 2 strategies to manage stress by discharge and Other Additional outcome/goals: Psychosocial - 60-Day Assess VIsit Date of Eval: 12/19/24 Session #:: 24 Not Applicable: No History of previous Mental disease:: No Target Goals Target Goals Psychosocial Test Tool Used:: [employer] QOL Cardiac and PHQ-9 Questionnaire phq-9 Severity Referral to Behavioral Health PS - Interventions: Yes: Attend Stress Management Classes Outcomes/Goals: See list Psychosocial Outcomes/Goals:: ID's personal stressors & 2 strategies to manage stress by discharge and Other Additional outcome/goals: Intervention/Plan: See List Interventions/Plan:: Assess stressors,coping strategies & signs of derpression on admission, Instruct/assist pt to develop coping & personal stress Mgt strategies, Refer to Behavioral Health if appropriate, Refer to Physician if appropriate, Instruct patient to recognize signs & symptoms of depression, Instruct patient to recog and Other additional plan/intervention 30-day Reassessments: 30 day Reassessments:: Met Reassessment Notes & Comments:: Pt denies any psychosocial issues at this time. Will continue to monitor. Psychosocial - 90-Day Assess Target Goals Target Goals Referral to Behavioral Health PS - Interventions: Yes: Attend Stress Management Classes Psychosocial - Final Assessmen Target Goals Target Goals Referral to Behavioral Health PS - Interventions: Yes: Attend Stress Management Classes Nutrition - 90-Day Assessment Weight Mgt (Other Care) Height: 5 ft 9 in Weight:: 250 lb 8 oz BMI: 37.0 Nutrition - Final Assessment Weight Mgt (Other Care) Height: 5 ft 9 in Weight:: 250 lb 8 oz BMI: 37.0
[2024-12-19 07:49] VITALS: BP 110/62; BP 122/66; BMI 37.0
== END 2025-01-13 23:59 ==
LOC: CR 13:00
PROVIDERS: PCP Internal Medicine
DX: I21.4 Non-ST elevation (NSTEMI) myocardial infarction (principal)
CPT/HCPCS: 93798

== ENCOUNTER 2025-01-15 07:46 | Outpatient (RCR) | payer MEDICARE, OTHER, SELFPAY ==
[2024-12-19 07:49] VITALS: BMI 37.0
[2025-01-14 00:42] VITALS: BP 110/62; BP 120/60; BP 122/66; BP 126/60
== END 2025-02-12 23:59 ==
LOC: CR 07:46
PROVIDERS: PCP Internal Medicine
DX: I21.4 Non-ST elevation (NSTEMI) myocardial infarction (principal)
CPT/HCPCS: 93798

== ENCOUNTER 2025-02-11 08:00 | Outpatient (RCR) | payer SELFPAY ==
[2024-12-19 07:49] VITALS: BMI 37.0
== END 2025-02-12 23:59 ==
LOC: CR 08:00
PROVIDERS: PCP Internal Medicine
DX: Z00.00 Encounter for general adult medical examination without abnormal findings (principal)

== ENCOUNTER 2025-02-20 08:00 | Outpatient (RCR) | payer SELFPAY ==
[2024-12-19 07:49] VITALS: BMI 37.0
== END 2025-03-15 23:59 ==
LOC: CR 08:00
PROVIDERS: PCP Internal Medicine
DX: Z00.00 Encounter for general adult medical examination without abnormal findings (principal)

== ENCOUNTER 2025-03-13 08:00 | Outpatient (RCR) | payer SELFPAY ==
[2024-12-19 07:49] VITALS: BMI 37.0
== END 2025-03-15 23:59 ==
LOC: CR 08:00
PROVIDERS: PCP Internal Medicine
DX: Z00.00 Encounter for general adult medical examination without abnormal findings (principal)

== ENCOUNTER 2025-04-10 08:00 | Outpatient (RCR) | payer SELFPAY ==
[2024-12-19 07:49] VITALS: BMI 37.0
== END 2025-04-14 23:59 ==
LOC: CR 08:00
PROVIDERS: PCP Internal Medicine
DX: Z00.00 Encounter for general adult medical examination without abnormal findings (principal)

== ENCOUNTER 2025-05-15 08:00 | Outpatient (RCR) | payer SELFPAY ==
[2024-12-19 07:49] VITALS: BMI 37.0
== END 2025-05-15 23:59 ==
LOC: CR 08:00
PROVIDERS: PCP Internal Medicine
DX: Z00.00 Encounter for general adult medical examination without abnormal findings (principal)

== ENCOUNTER 2025-06-12 08:00 | Outpatient (RCR) | payer SELFPAY ==
[2024-12-19 07:49] VITALS: BMI 37.0
== END 2025-06-15 23:59 ==
LOC: CR 08:00
PROVIDERS: PCP Internal Medicine
DX: Z00.00 Encounter for general adult medical examination without abnormal findings (principal)

== ENCOUNTER 2025-07-15 08:00 | Outpatient (RCR) | payer SELFPAY ==
[2024-12-19 07:49] VITALS: BMI 37.0
== END 2025-07-15 23:59 ==
LOC: CR 08:00
PROVIDERS: PCP Internal Medicine
DX: Z00.00 Encounter for general adult medical examination without abnormal findings (principal)

== ENCOUNTER 2025-08-14 08:00 | Outpatient (RCR) | payer SELFPAY ==
[2024-12-19 07:49] VITALS: BMI 37.0
== END 2025-08-15 23:59 ==
LOC: CR 08:00
PROVIDERS: PCP Internal Medicine
DX: Z00.00 Encounter for general adult medical examination without abnormal findings (principal)

== ENCOUNTER 2025-09-09 08:00 | Outpatient (RCR) | payer SELFPAY ==
[2024-12-19 07:49] VITALS: BMI 37.0
== END 2025-09-14 23:59 ==
LOC: CR 08:00
PROVIDERS: PCP Internal Medicine
DX: Z00.00 Encounter for general adult medical examination without abnormal findings (principal)

== ENCOUNTER 2025-10-14 08:00 | Outpatient (RCR) | payer SELFPAY ==
[2024-12-19 07:49] VITALS: BMI 37.0
== END 2025-10-15 23:59 ==
LOC: CR 08:00
PROVIDERS: PCP Internal Medicine
DX: Z00.00 Encounter for general adult medical examination without abnormal findings (principal)